=== PATIENT | female | born 1965 | race Two or more races ===

== ENCOUNTER 2017-11-06 10:29 | Inpatient (IN) | payer OTHER ==
[2017-11-06] VITALS (41 sets, daily range): BP systolic 80–132; BP diastolic 49–80
[~2017-11-06] VITALS: Ht 152.4 cm; Wt 46.7 kg
--- NOTE | 2017-11-06 10:29 | NUR ---
[place] FROM 4 SEASONS C/O SOB, SPO2=74% ON RA, CAME IN ON NR WITH SPO2=90%. NAD NOTED. MD AT BEDSIDE FOR EVAL. PT CURRENTLY NONVERBAL. RT AT BEDSIDE. PT PLACED IN GOWN AND MONITOR.
[2017-11-06 10:53] LABS: ABG BASE EXCESS -1.2 mmol/L; ABG PCO2 42.1 mmHg (35.0-45.0); ABG PH 7.375 (7.350-7.450); ABG PO2 56.1 mmHg (75.0-100.0); AaDO2 614.8 mmHg; SITE, ABG Right Radial; VENT MODE, BG NRB MASK
[2017-11-06 10:56] LABS: BASOPHILS # (AUTO) 0.2 /CMM (0.0-0.2); BASOPHILS % (AUTO) 0.9 % (0.0-2.0); EOSINOPHILS % (AUTO) 0.2 % (0.0-6.0); HEMATOCRIT 33 % (33-45); LYMPHOCYTES # (AUTO) 1.3 /CMM (0.8-4.8); LYMPHOCYTES % (AUTO) 6.7 % (20.0-44.0); MEAN CORPUSCULAR HEMOGLOBIN 32 PG (26.0-33.0); MEAN CORPUSCULAR HGB CONC 34 g/dl (31.0-36.0); MEAN CORPUSCULAR VOLUME 94 fL (82-100); MONOCYTES % (AUTO) 0.1 % (2.0-12.0); NEUTROPHILS # (AUTO) 17.5 /CMM (1.8-8.9); NEUTROPHILS % (AUTO) 92.1 % (43.0-81.0); RDW COEFFICIENT OF VARIATION 20.7 (11.5-15.0); RED BLOOD CELL COUNT(AUTO) 3.49 MIL/uL (4.0-5.2)
[2017-11-06] MEDS ORDERED: IV NS 0.9% 500 ML BAG IV ONE ×2 (11:00→14:00)
[2017-11-06] MEDS ORDERED: SUCR1TAB PO (11:16)
[2017-11-06] MEDS ORDERED: OXYC15TA2 PO (11:16)
[2017-11-06] MEDS ORDERED: LEVO50TA8 PO (11:16)
[2017-11-06] MEDS ORDERED: INSU100I14 SQ (11:16)
[2017-11-06] MEDS ORDERED: ERGO500040 PO (11:16)
[2017-11-06] MEDS ORDERED: BISA10SU8 RC (11:16)
[2017-11-06] MEDS ORDERED: ONDA4TAB5 PO (11:16)
[2017-11-06] MEDS ORDERED: IPRA3AMP IH (11:16)
[2017-11-06] MEDS ORDERED: MULT-213 PO (11:16)
[2017-11-06] MEDS ORDERED: FERR325T23 PO (11:16)
[2017-11-06] MEDS ORDERED: AMLO10TA2 PO (11:16)
[2017-11-06] MEDS ORDERED: MAGN400T6 PO (11:16)
[2017-11-06] MEDS ORDERED: ASCO500T9 PO (11:16)
[2017-11-06] MEDS ORDERED: NA P133E RC (11:16)
[2017-11-06] MEDS ORDERED: SIMV10TA6 PO (11:16)
[2017-11-06] MEDS ORDERED: MIRT15TA7 PO (11:16)
[2017-11-06] MEDS ORDERED: FLUO20CA36 PO (11:16)
[2017-11-06] MEDS ORDERED: ACET-868 PO (11:16)
[2017-11-06] MEDS ORDERED: EPOE1VIA7 SQ (11:16)
[2017-11-06] MEDS ORDERED: MAGN400O6 PO (11:16)
--- NOTE | 2017-11-06 11:36 | NUR ---
PICC LINE NURSE CALLED
--- NOTE | 2017-11-06 11:38 | NUR ---
URINE OBTAINED CALLED LAB FOR PICKUP
[2017-11-06 11:53] LABS: APPEARANCE,URINE Cloudy (CLEAR); BILIRUBIN,URINE Negative (NEGATIVE); BLOOD, URINE Large Ery/uL (NEGATIVE); COLOR,URINE Brown (YELLOW); KETONES,URINE Negative (NEGATIVE); LEUKOCYTE ESTERASE ,URINE Large (NEGATIVE); NITRITE, URINE Negative (NEGATIVE); PH,URINE 6.5 (5.0-8.0); PROTEIN,URINE >=300 mg/dl (NEGATIVE); UGLUCOSE Negative (NEGATIVE); UROBILINOGEN,URINE 0.2 EU/dL (0.2)
[2017-11-06 11:59] LABS: BACTERIA,URINE Many /HPF (None Seen); SQUAMOUS EPITHELIAL CELL,UR Few /HPF (None Seen); WBC,URINE 81-100 /HPF (0-3)
--- NOTE | 2017-11-06 12:05 | NUR ---
HYDRO-THERMAL HEATING BLANKET IS SET UP AND APPLIED ON PATIENT. PICC LINE NURSE BEDSIDE.
[2017-11-06] MEDS ORDERED: PIPERACILLIN /TAZOBACTAM 3.375 G in IV D5W 50 ML IV ONE (12:30)
[2017-11-06] MEDS ORDERED: LEVOFLOXACIN 750 MG /D5W 150ML 150 ML IV ONE (12:30)
--- NOTE | 2017-11-06 13:01 | NUR ---
JO PICCLINE INSERTED BY JUAN CARLOS LEVY
[2017-11-06 13:22] LABS: INR 1.88 (0.87-1.13)
[2017-11-06 13:30] LABS: BILIRUBIN,DIRECT 0.9 mg/dL (0.0-0.2); BILIRUBIN,TOTAL 1.4 mg/dL (0.2-1.0); CALCIUM, SERUM 7.3 mg/dL (8.5-10.1); CREATININE 1.5 mg/dL (0.6-1.3); POTASSIUM 3.6 mmol/L (3.5-5.1); TOTAL PROTEIN, SERUM 4.7 g/dL (6.4-8.2)
[2017-11-06 13:32] LABS: ALBUMIN 1.2 g/dL (3.4-5.0)
[2017-11-06] MEDS ORDERED: DEXTROSE 50%-WATER 50 ML DISP.SYRIN ONE (13:32)
--- NOTE | 2017-11-06 13:35 | NUR ---
[id number] GIVEN PER MD ORDER
--- NOTE | 2017-11-06 13:45 | NUR ---
BLOOD SUGAR RECHECK, 160, MD AWARE
--- NOTE | 2017-11-06 13:46 | NUR ---
GROUP CALLED, BACK SEWER, PAGED TO CALL BACK
[2017-11-06 13:55] LABS: PLATELET COUNT (AUTO) 8 /CMM (150-450)
[2017-11-06 13:59] LABS: BAND % (MANUAL) 8 % (0.0-5.0); LYMPHOCYTES % (MANUAL) 2 % (16-48); MONOCYTES % (MANUAL) 7 % (0-11.0); MYELOCYTES % 1 % (0-0); NEUTROPHILS % (MANUAL) 82 (42-76)
--- NOTE | 2017-11-06 14:02 | NUR ---
PT TO CT
--- NOTE | 2017-11-06 14:25 | NUR ---
PT BACK FROM CT
--- NOTE | 2017-11-06 14:44 | NUR ---
, RT, AND RN AT BEDSIDE FOR INTUBATION. PT WAS SUCCESSFULY INTUBATED AT 1441 BY . MD GAVE VERBAL ORDER FOR 80MG OF SUCCINYLCHOLINE AND 20MG OF ETOMIDATE WAS GIVEN PRIOR TO INTUBATION. ET TUBE SIZE 7 WAS USED AND AT 22 AT THE LIPS. PRE PROCEDURE VITALS WERE BP 68/42, HR 75, SPO2 90% ROOM AIR, RESPIRATIONS 20. POST PROCEDURE VITALS WERE BP 64/46, HR75, SPO2 100% ON VENT WITH FIO2 OF 100, VOLUME 500ML, PEEP 0, AND RATE OF 14.
--- NOTE | 2017-11-06 14:45 | NUR ---
SUCCESSFUL RSI DONE BY DR. COYLE. MEDS GIVEN PER PROTOCOL. RTS PRESENT AT BS.
--- NOTE | 2017-11-06 14:45 | NUR ---
PT INTUBATED BY ER W. 7.0 ETT SECURED W/ ANCHOFAST @ 21CM LIPLINE, BREATH SOUNDS EQUAL, POSITIVE COLOR CHANGE ON CO2 DETECTOR NOTED. PT SX'ED AND LAVAGED PRN TO LARGE AMOUNTS OF THIN FROTHY BLOOD TINGED SECRETIONS, ETT ASPIRATE SAMPLE SENT TO LAB. PT PLACED ON SETTINGS PER MD Gomez AC14 500 100% PEEP 0. PT MOVED TO ICU W/ RN.
--- NOTE | 2017-11-06 14:57 | NUR ---
AT BEDSIDE. SUCCESSFUL INTUBATION WAS PERFORMED
[2017-11-06] MEDS: NOREPINEPHRINE 8 MG in IV D5W 500 ML IV PRN (15:00)
[2017-11-06] MEDS ORDERED: VANCOMYCIN 1 GM in IV D5W 250 ML IV ONE ×2 (15:00→16:00)
[2017-11-06] MEDS ORDERED: NOREPINEPHRINE 8 MG in IV D5W 500 ML IV ONE (15:00)
[2017-11-06] MEDS ORDERED: FEE PK DOSING 1 MIN EA MC ONE (15:02)
--- NOTE | 2017-11-06 15:11 | NUR ---
NON ADMIN DUPLICATE ORDER OF LEVOPHED
--- NOTE | 2017-11-06 16:00 | NUR ---
FUR BLOWER OPERATOR NOTE RECEIVED PATINT FROM ICU OBTUNDED ,ON TELE MONITOR SR , WITH LEVOPHED DRIP ORDERED PER DR WILKERSON WILL START PROPOFOL ORDERED ON SOFT RESTRAIN ORDERED, BED IN LOWEST AND LOCKED POSITION WITH ETT TO VENT SETTING ORDERED, LT UPPER ARM PICC LINE ,
[2017-11-06] MEDS: PROPOFOL 10MG/ML 50ML 50 ML IV PRN ×2 (16:16→21:55)
[2017-11-06 16:27] LABS: ABG BASE EXCESS -1.7 mmol/L; ABG OXYGEN SATURATION 88.5 % (92.0-98.5); ABG PO2 56.7 mmHg (75.0-100.0); AaDO2 625.3 mmHg; COHb 0.6 % (0.5-1.5); MetHb 0.8 % (0.0-1.5); O2Hb 87.3 % (94.0-97.0); PEEP,BG 0 cm H2O; SITE, ABG Right Radial; VENT MODE, BG AC 14 500 100% +0; VT, ABG 500 mL
[2017-11-06] MEDS ORDERED: IPRATROPIUM NEB FS 0.5 MG/2.5 ML AMPUL.NEB NEB PRN (17:00)
[2017-11-06] MEDS ORDERED: ALBUTEROL FS 2.5 MG/3 ML VIAL.NEB NEB PRN (17:00)
[2017-11-06] MEDS ORDERED: ONDANSETRON HCL/PF 4 MG/2 ML VIAL IVP PRN (17:00)
[2017-11-06] MEDS ORDERED: IV D5/0.45 NACL 1,000 ML IV PRN (17:00)
--- NOTE | 2017-11-06 17:00 | NUR ---
ICU RNNNOTE CALLED TO DR WILKERSON NOTIFIED THT LACTIC ACID 4.8 WITH ORDER GIVE BOLUS NS 500
[2017-11-06] MEDS: MEROPENEM 500 MG in IV NS 0.9% 50 ML IV SCH (17:04)
[2017-11-06] MEDS ORDERED: IV NS 0.9% 500 ML IV ONE (17:30)
--- NOTE | 2017-11-06 17:32 | NUR ---
WEBFOCUS DEVELOPER NOTE NOTIFIED THAT BLOOD SUGAR 62 STATED ACCU CHECK Q4 HOUR AND GIVE 1 AMP D50% , ORDER CARRIED OUT Addendum: 11/06/17 at 1821 by EDDIE PASCUAL RN D50 % ADMINISTERED ORDERED BY DR Gerry COBB
[2017-11-06] MEDS ORDERED: DEXTROSE 50%-WATER 50 ML DISP.SYRIN IVP ONE (18:00)
[2017-11-06] MEDS ORDERED: ETOMIDATE 2 MG/ML VIAL IV ONE (18:25)
[2017-11-06] MEDS ORDERED: SUCCINYLCHOLINE CHLORIDE 20 MG/ML VIAL IV ONE (18:25)
--- NOTE | 2017-11-06 18:41 | NUR ---
MERCHANDISE SUPPORT ASSOCIATE NOTE CALLED BLOOD BANK PLATELETS NOT READY YET, WILL F\U
--- NOTE | 2017-11-06 19:30 | NUR ---
KNOCKDOWN WORKER RCD PT SEDATED ON DIPRIVAN AT 20 MCG/KG/MIN; INTUBATED 7.0 @ 21 W/VENT SETTINGS AC 14 500 100% +5; JO PICC LINE W/LEVOPHED AT 4 MCG/MIN; D51/2 NS@ 50 ML/HR; PER REPORT 3 UNITS OF PLATELETS TO BE GIVEN. CALL PLACED TO DR WILKERSON TO RECEIVE ORDER TO CONTINUE LEVOPHED. PENDING CALL BACK. MULTIPLE SKIN ISSUES APPLIED MEPILEX; WOUND CARE CONSULT PENDING.
--- NOTE | 2017-11-06 20:19 | NUR ---
DIRECTOR PRODUCT DEVELOPMENT FIRST UNIT PLATELET TRANSFUSION STARTED.
--- NOTE | 2017-11-06 20:24 | NUR ---
PT RECEIVED INTUBATED WITH 7.0 ETT SECURED AT 21CM AT THE LIP. TOLERATING VENT SETTINGS. SX'D FRO MOD AMT OF THICK BISHOP SECRETIONS. VENT ALARMS SET AND AUDIBLE. AMBU BAG AT BEDSIDE. VENT PLUGGED INTO RED OUTLET. WILL CONTINUE TO MONITOR. Addendum: 11/06/17 at 2024 by NOEMY HOUSTON RT Amended: Links added.
[2017-11-06] MEDS ORDERED: BLOOD SUGAR DIAGNOSTIC 1 EACH STRIP IN SCH (21:00)
[2017-11-06] MEDS ORDERED: PHYTONADIONE INJ 10 MG/1 ML AMPUL SQ SCH (21:00)
--- NOTE | 2017-11-06 21:00 | NUR ---
SANDBLASTER PAINT SPRAYER ABD US AT BEDSIDE.
[2017-11-06] MEDS ORDERED: PHYTONADIONE INJ 10 MG/1 ML AMPUL ONE (21:43)
[2017-11-06] MEDS: BLOOD SUGAR DIAGNOSTIC 1 EACH STRIP IN SCH (21:55)
--- NOTE | 2017-11-06 21:58 | NUR ---
ROUNDING MACHINE OPERATOR BLOOD SUGAR 102; NO COVERAGE NEEDED. CONTINUE TO MONITOR.
[2017-11-07] VITALS (76 sets, daily range): BP systolic 55–168; BP diastolic 44–89
--- NOTE | 2017-11-07 01:19 | NUR ---
DIRECTOR OF FOOD AND NUTRITION BLOOD SUGAR 69; NO COVERAGE NEEDED. CONTINUE TO MONITOR.
[2017-11-07] MEDS: BLOOD SUGAR DIAGNOSTIC 1 EACH STRIP IN SCH ×6 (01:22→21:11)
[2017-11-07] MEDS: PROPOFOL 10MG/ML 50ML 50 ML IV PRN ×5 (04:00→22:41)
[2017-11-07] MEDS: MEROPENEM 500 MG in IV NS 0.9% 50 ML IV SCH ×2 (04:00→16:37)
[2017-11-07 04:54] LABS: EOSINOPHILS % (AUTO) 0.1 % (0.0-6.0); LYMPHOCYTES # (AUTO) 0.4 /CMM (0.8-4.8); LYMPHOCYTES % (AUTO) 2.4 % (20.0-44.0); MEAN CORPUSCULAR HEMOGLOBIN 32 PG (26.0-33.0); MEAN CORPUSCULAR HGB CONC 34 g/dl (31.0-36.0); MEAN CORPUSCULAR VOLUME 95 fL (82-100); MONOCYTES # (AUTO) 0.1 /CMM (0.1-1.30); MONOCYTES % (AUTO) 0.3 % (2.0-12.0); NEUTROPHILS # (AUTO) 18.2 /CMM (1.8-8.9); NEUTROPHILS % (AUTO) 97.2 % (43.0-81.0); PLATELET COUNT (AUTO) 56 /CMM (150-450); RDW COEFFICIENT OF VARIATION 22.5 (11.5-15.0); WHITE BLOOD COUNT (AUTO) 18.7 K/uL (4.3-11.0)
[2017-11-07 05:17] LABS: CALCIUM, SERUM 6.9 mg/dL (8.5-10.1); CREATININE 1.6 mg/dL (0.6-1.3); MAGNESIUM 1.7 mg/dL (1.8-2.4); PHOSPHORUS 2.1 mg/dL (2.5-4.9); POTASSIUM 3.4 mmol/L (3.5-5.1)
[2017-11-07 05:26] LABS: HEMATOCRIT 19 % (33-45); HEMOGLOBIN 6.3 g/dL (11.5-14.8); RED BLOOD CELL COUNT(AUTO) 1.99 MIL/uL (4.0-5.2); THYROID STIMULATING HORMONE 1.474 uIU/mL (0.358-3.74)
--- NOTE | 2017-11-07 05:27 | NUR ---
FLIGHT TECHNICIAN BLOOD SUGAR 60; NO COVERAGE NEEDED. CONTINUE TO MONITOR.
--- NOTE | 2017-11-07 05:30 | NUR ---
SHADOWGRAPH SCALE OPERATOR PT SEDATED ON DIPRIVAN AT 20 MCG/KG/MIN; PT NOTED MOVING HANDS REACHING FOR LINES AND ET TUBES; PT DOES NOT FOLLOW COMMANDS. DIPRIVAN INCREASED TO 25 MCG/KG/MIN. CONTINUE TO MONITOR.
[2017-11-07 05:47] LABS: BAND % (MANUAL) 19 % (0.0-5.0); NEUTROPHILS % (MANUAL) 74 (42-76)
[2017-11-07 05:48] LABS: LYMPHOCYTES % (MANUAL) 3 % (16-48); METAMYELOCYTES % 3 % (0-0); MONOCYTES % (MANUAL) 1 % (0-11.0)
--- NOTE | 2017-11-07 06:00 | NUR ---
PROFESSOR OF EDUCATION PROFESSOR OF EDUCATION PT SEDATED ON DIPRIVAN AT 25 MCG/KG/MIN; PT NOTED MOVING HANDS REACHING FOR LINES AND ET TUBES; PT DOES NOT FOLLOW COMMANDS. DIPRIVAN INCREASED TO 30 MCG/KG/MIN. CONTINUE TO MONITOR.
--- NOTE | 2017-11-07 06:37 | NUR ---
CABLE TELEVISION PROGRAM DIRECTOR 6.01/07; NO ACTIVE BLEED NOTED; STAT REDRAW FROM LAB REQUESTED.
[2017-11-07 06:49] LABS: LYMPHOCYTES # (AUTO) 0.6 /CMM (0.8-4.8); LYMPHOCYTES % (AUTO) 3.2 % (20.0-44.0); MEAN CORPUSCULAR HEMOGLOBIN 31 PG (26.0-33.0); MEAN CORPUSCULAR HGB CONC 33 g/dl (31.0-36.0); MEAN CORPUSCULAR VOLUME 96 fL (82-100); MONOCYTES % (AUTO) 0.2 % (2.0-12.0); NEUTROPHILS # (AUTO) 19.3 /CMM (1.8-8.9); NEUTROPHILS % (AUTO) 96.6 % (43.0-81.0); RDW COEFFICIENT OF VARIATION 22.4 (11.5-15.0); RED BLOOD CELL COUNT(AUTO) 2.03 MIL/uL (4.0-5.2); WHITE BLOOD COUNT (AUTO) 19.9 K/uL (4.3-11.0)
[2017-11-07 07:09] LABS: HEMATOCRIT 20 % (33-45); HEMOGLOBIN 6.4 g/dL (11.5-14.8); PLATELET COUNT (AUTO) 38 /CMM (150-450)
--- NOTE | 2017-11-07 07:20 | NUR ---
RN INITIAL NOTE PATIENT RECEIVED IN BED. SEDATED. WAS INTUBATED. TOLERATING VENT SETTINGS WELL. NO S/S OF RESPIRATORY DISTRESS OR SOB. NO S/S OF PAIN OR DISCOMFORT. SINUS RHYTHM ON TELE MONITOR. PATIENT IS NPO. SKIN IS WARM AND DRY TO TOUCH. SCHEDULED FOR HD TODAY. SKIN IS WARM AND DRY TO TOUCH. IV SITE FLUSHED, PATENT. SAFETY PRECAUTIONS IN PLACE: BED IN LOCKED, LOW POSITION WITH TWO SIDE RAILS UP. CALL LIGHT AND BELONGINGS WITHIN EASY REACH. WILL CONTINUE TO MONITOR.
--- NOTE | 2017-11-07 07:22 | NUR ---
Female intubated pt received on mechanical vent. 7.0 ETT is secured at 21cm@ the lip. Vent is plugged into a red outlet, alarms are set and audible, and BVM is at bedside. Addendum: 11/07/17 at 0723 by PETRA RIZO RT Amended: Links added.
--- NOTE | 2017-11-07 08:09 | NUR ---
WOUND CARE CONSULT: PT PRESENTS WITH STAGE 3 SACRAL ULCER AND OPEN AREAS TO LEFT LOWER LEG WITH WEEPING EDEMA TO ARMS AND LEGS (3+ PITTING EDEMA), PRESENT ON ADMISSION. RECOMMENDATIONS MADE FOR WOUND CARE AND SKIN PROTECTION. DISCUSSED WITH NURSING STAFF. RECOMMEND SURGICAL CONSULT. FIRST STEP MATTRESS ORDERED. ALL SKIN PROTECTION MEASURES IN PLACE. WILL SEE PRN. CURRENT MAGALIE SCORE IS 12. MD IN AGREEMENT WITH PLAN OF CARE. Addendum: 11/07/17 at 0811 by EVA DE LA O Amended: Links added. Addendum: 11/07/17 at 0820 by EVA DE LA O PT IS EXTREMELY THIN AND BONY.
[2017-11-07 08:18] LABS: ABG BASE EXCESS -0.7 mmol/L; ABG OXYGEN SATURATION 92.6 % (92.0-98.5); ABG PCO2 46.2 mmHg (35.0-45.0); ABG PH 7.351 (7.350-7.450); ABG PO2 67.8 mmHg (75.0-100.0); COHb 0.3 % (0.5-1.5); MetHb 0.9 % (0.0-1.5); O2Hb 91.5 % (94.0-97.0); PEEP,BG 5 cm H2O; SITE, ABG Right Radial; VENT MODE, BG AC 14 500 100% +5; VT, ABG 500 mL
[2017-11-07] MEDS ORDERED: NS 0.9% IV ONE ×2 (08:30→09:00)
[2017-11-07] MEDS ORDERED: HYDROGEL DRESSING 90 GM TUBE TP PRN (08:30)
[2017-11-07] MEDS ORDERED: DESMOPRESSIN IV ONE ×2 (08:30→09:00)
[2017-11-07] MEDS ORDERED: DEXTROSE 10% IN WATER 250 ML BAG IV PRN (09:00)
[2017-11-07] MEDS ORDERED: Sodium Phosphate 15 MMOL in IV D5W 250 ML IV ONE (09:00)
[2017-11-07] MEDS: PANTOPRAZOLE 40 MG VIAL IV SCH (09:14)
[2017-11-07] MEDS: Z GUARD REMEDY 2 OZ OINT TP SCH (09:14)
[2017-11-07] MEDS: HYDROGEL DRESSING 90 GM TUBE TP SCH (09:14)
[2017-11-07] MEDS: Magnesium 1GM/D5W 100ML PREMIX 100 ML IV SCH ×4 (09:14→19:59)
[2017-11-07 09:26] LABS: INR 1.66 (0.87-1.13)
[2017-11-07] MEDS ORDERED: IV D5W 1,000 ML IV PRN (09:30)
[2017-11-07] MEDS: IV D5/ 0.9% NACL 1,000 ML IV PRN ×2 (09:35→21:11)
--- NOTE | 2017-11-07 10:15 | NUR ---
RN NOTE IN THE PROCESS OF CHANGING IV TUBING ON DIPROVAN PATIENT'S HANDS BEGAN TO MOVE TOWARDS HER FACE AND BECAME TACHYCARDIC.
--- NOTE | 2017-11-07 11:20 | NUR ---
PEEP increased to 10 per MD order. Addendum: 11/07/17 at 1330 by PETRA RIZO RT Amended: Links added.
[2017-11-07] MEDS ORDERED: EPOETIN ALFA (10,000 UNIT) 10,000 UNIT/ML VIAL SQ ONE (15:00)
[2017-11-07 16:36] LABS: HEMOGLOBIN 12.2 g/dL (11.5-14.8)
[2017-11-07 17:03] LABS: IRON, SERUM 24 ug/dl (50-175); TOTAL IRON BINDING CAPACITY 75 ug/dl (250-450)
[2017-11-07] MEDS: VANCOMYCIN 500 MG in IV D5W 100 ML IV PRN (17:09)
[2017-11-07 17:29] LABS: FERRITIN 4591 ng/mL (8-388)
--- NOTE | 2017-11-07 17:30 | NUR ---
RN NOTE DURING DIALYSIS PATIENTS B/P DROPPED LEVOPHED INCREASED TO 30 MCG/KG
[2017-11-07 18:02] LABS: D-DIMER 2.26 mg/L(FEU (0.17-0.50); INR 1.6 (0.87-1.13)
--- NOTE | 2017-11-07 18:15 | NUR ---
RN NOTE PATIENTS SYSTOLIC BLOOD PRESSURE MAINTAINED ABOVE 90 LEVOPHED STOPPED.
--- NOTE | 2017-11-07 19:25 | NUR ---
HAM SAWYER RCD PT SEDATED ON DIPRIVAN AT 30 MCG/KG/MIN; INTUBATED 7.0 @ 21 W/VENT SETTINGS AC 14 500 90% +10; JO PICC LINE D5NS@ 75 ML/HR; PER REPORT 2 UNITS OF PLATELETS TO BE GIVEN. OG TUBE CLAMPED.
--- NOTE | 2017-11-07 19:43 | NUR ---
Received pt on vent support on current vent settings,pt stable no respiratory distress noted, no sob noted, alarms are on and audible, ventilator is plugged into red outlet, ambu bag at bedside, will continue monitoring per MDS orders. Addendum: 11/07/17 at 1945 by MOLLY GRAHAM RT Amended: Links added.
--- NOTE | 2017-11-07 20:00 | NUR ---
MAGNETIC LOCATER CALLED BLOOD BANK; PLATELETS PENDING DELIVERY FROM [facility].
--- NOTE | 2017-11-07 20:30 | NUR ---
AXMINSTER RUG SETTER RCD CALL FROM RUBY VILLEGAS; PT SON; UPDATED ON PLAN OF CARE.
[2017-11-07] MEDS: SIMVASTATIN 10 MG TABLET NG SCH (21:12)
[2017-11-08] VITALS (40 sets, daily range): BP systolic 84–136; BP diastolic 57–81
[2017-11-08] MEDS: BLOOD SUGAR DIAGNOSTIC 1 EACH STRIP IN SCH ×6 (01:45→22:03)
[2017-11-08] MEDS: PROPOFOL 10MG/ML 50ML 50 ML IV PRN ×3 (04:10→17:56)
[2017-11-08] MEDS: MEROPENEM 500 MG in IV NS 0.9% 50 ML IV SCH ×2 (05:00→15:52)
[2017-11-08 05:44] LABS: EOSINOPHILS % (AUTO) 0.4 % (0.0-6.0); HEMATOCRIT 28 % (33-45); HEMOGLOBIN 9.7 g/dL (11.5-14.8); LYMPHOCYTES # (AUTO) 0.5 /CMM (0.8-4.8); LYMPHOCYTES % (AUTO) 4.2 % (20.0-44.0); MEAN CORPUSCULAR HEMOGLOBIN 32 PG (26.0-33.0); MEAN CORPUSCULAR HGB CONC 35 g/dl (31.0-36.0); MEAN CORPUSCULAR VOLUME 92 fL (82-100); MONOCYTES % (AUTO) 0.4 % (2.0-12.0); NEUTROPHILS # (AUTO) 11.2 /CMM (1.8-8.9); RED BLOOD CELL COUNT(AUTO) 3.07 MIL/uL (4.0-5.2); WHITE BLOOD COUNT (AUTO) 11.8 K/uL (4.3-11.0)
[2017-11-08 06:09] LABS: CREATININE 1.5 mg/dL (0.6-1.3); MAGNESIUM 2.6 mg/dL (1.8-2.4); PHOSPHORUS 2.5 mg/dL (2.5-4.9)
[2017-11-08 06:14] LABS: PLATELET COUNT (AUTO) 29 /CMM (150-450)
[2017-11-08 06:48] LABS: BAND % (MANUAL) 11 % (0.0-5.0); LYMPHOCYTES % (MANUAL) 6 % (16-48); METAMYELOCYTES % 2 % (0-0); MONOCYTES % (MANUAL) 2 % (0-11.0); NEUTROPHILS % (MANUAL) 79 (42-76)
--- NOTE | 2017-11-08 07:16 | NUR ---
PT. RECEIVED ON [facility] VENT VIA ET TUBE WITH PARAMETERS BELLOW ORDER: AC 14 VT 500 FIO2 70% PEEP +10 B/S CLEAR BILATERAL. VENT IS PLUGGED INTO RED OUTLET WITH ALARMS ON AND AUDIBLE. QUINTIN @ HOB. Addendum: 11/08/17 at 1412 by MONTSE SÁNCHEZ RT Amended: Links added.
--- NOTE | 2017-11-08 07:30 | NUR ---
RN NOTE: PT RECEIVED SEDATED, ON VENT, ET INTACT, SETTINGS TOLERATED WELL. ON SEDATION ORDERED. ORAL TUBE CLAMPED. SAFETY MEASURES OBSERVED. WILL CONTINUE TO MONITOR.
[2017-11-08 08:54] LABS: ABG BASE EXCESS -2.2 mmol/L; ABG OXYGEN SATURATION 93.4 % (92.0-98.5); ABG PCO2 43.2 mmHg (35.0-45.0); ABG PH 7.351 (7.350-7.450); ABG PO2 75.5 mmHg (75.0-100.0); AaDO2 377.2 mmHg; COHb 0.3 % (0.5-1.5); MetHb 1.3 % (0.0-1.5); O2Hb 91.9 % (94.0-97.0); PEEP,BG 10 cm H2O; SITE, ABG Left Radial; VENT MODE, BG AC 70%; VT, ABG 500 mL
[2017-11-08] MEDS: LEVOTHYROXINE SODIUM 50 MCG TABLET NG SCH (09:04)
[2017-11-08] MEDS: IV D5/ 0.9% NACL 1,000 ML IV PRN (09:07)
[2017-11-08] MEDS: PANTOPRAZOLE 40 MG VIAL IV SCH (09:07)
[2017-11-08] MEDS: Z GUARD REMEDY 2 OZ OINT TP SCH (10:30)
[2017-11-08] MEDS: HYDROGEL DRESSING 90 GM TUBE TP SCH (10:30)
[2017-11-08] MEDS ORDERED: DEXTROSE 50%-WATER 50 ML DISP.SYRIN IVP ONE (13:30)
[2017-11-08] MEDS ORDERED: IV D5/0.45 NACL 1,000 ML IV PRN (13:30)
--- NOTE | 2017-11-08 15:14 | NUR ---
RN NOTE: (CRITICAL LOW BLOOD SUGAR) 1252: BLOOD SUGAR 40. NOTED NO DEXTROSE/PROTOCOL ORDERED TO TREAT. 1256: PAGED PRIMARY MD. 1305: CHARGE NURSE MADE AWARE. CHARGE NURSE LEFT MESSAGE FOR MD. WAITING FOR RESPONSE. 1308: OVERHEAD PAGED FOR DR. CHAMPION WELL. 1316: DR. WILKERSON CAME TO FLOOR, RECEIVED ORDERS AT BEDSIDE. 1321: ADMINISTER DEXTROSE ORDERED IV. WILL START IV FLUIDS ORDERED. 1335: RECHECKED BLOOD SUGAR 198. RUNNING IV FLUIDS ORDERED. WILL CONTINUE TO MONITOR.
[2017-11-08 18:36] LABS: EOSINOPHILS % (AUTO) 0.3 % (0.0-6.0); HEMATOCRIT 31 % (33-45); HEMOGLOBIN 10.5 g/dL (11.5-14.8); LYMPHOCYTES # (AUTO) 0.5 /CMM (0.8-4.8); LYMPHOCYTES % (AUTO) 3.9 % (20.0-44.0); MEAN CORPUSCULAR HEMOGLOBIN 32 PG (26.0-33.0); MEAN CORPUSCULAR HGB CONC 34 g/dl (31.0-36.0); MEAN CORPUSCULAR VOLUME 92 fL (82-100); MONOCYTES # (AUTO) 0.2 /CMM (0.1-1.30); MONOCYTES % (AUTO) 1.2 % (2.0-12.0); NEUTROPHILS # (AUTO) 13.1 /CMM (1.8-8.9); NEUTROPHILS % (AUTO) 94.6 % (43.0-81.0); RDW COEFFICIENT OF VARIATION 19.1 (11.5-15.0); RED BLOOD CELL COUNT(AUTO) 3.32 MIL/uL (4.0-5.2); WHITE BLOOD COUNT (AUTO) 13.9 K/uL (4.3-11.0)
[2017-11-08 18:38] LABS: PLATELET COUNT (AUTO) 10 /CMM (150-450)
[2017-11-08 18:39] LABS: BAND % (MANUAL) 16 % (0.0-5.0); LYMPHOCYTES % (MANUAL) 7 % (16-48); MONOCYTES % (MANUAL) 2 % (0-11.0); NEUTROPHILS % (MANUAL) 75 (42-76)
--- NOTE | 2017-11-08 18:47 | NUR ---
RN NOTES:(CRITICAL LOW PLATELET) RECEIVED RESULTS FOR LOW PLATELETS 10,000. PROTOCOL INITIATED, WILL FOLLOW MISCELLANEOUS ORDERS BY DR. SERVIN TRANSFUSE 2 UNITS IF BELOW 20,000. ORDERED WILL ENDORSE TO PM SHIFT FOR CONTINUITY OF CARE.
--- NOTE | 2017-11-08 19:00 | NUR ---
CLINICAL NURSING PROFESSOR NOTES Received patient orally intubated on eventilator on AC mode,sedated on Diprivan drip(titrate as needed).patient very sedated,,not moving extremities,with very minimal gag and cough reflex when suctioned.(will slowly wean down Propofol).PICC line via JO.Comfort care done,needs attended.Will transfuse 2 units platelet when available. 2020 Called blood bank to follow up on Platelet,not yet available.
--- NOTE | 2017-11-08 19:40 | NUR ---
Received pt on vent support on current vent settings,pt stable no respiratory distress noted, no sob noted, alarms are on and audible, ventilator is plugged into red outlet, ambu bag at bedside, will continue monitoring per MDS orders. Addendum: 11/08/17 at 1940 by MOLLY GRAHAM RT Amended: Links added.
[2017-11-08] MEDS: SIMVASTATIN 10 MG TABLET NG SCH (22:03)
--- NOTE | 2017-11-08 22:30 | NUR ---
STEAM FITTER HELPER NOTE TRANSFER OF CARE FROM ISAIAS LEVY. PT CURRENTLY INTUBATED. ETT 7.0 AND 21CM AT THE LIP. HOB ELEVATED. ORAL TUBE IN PLACE. VENT SETTINGS WELL TOLERATED. SEDATED AT THIS TIME. IV JO PICC CLEAN, PATENT WITH FLUIDS INFUSING AT THIS TIME. AFEBRILE. WITH ORDERS TO INFUSE 2 UNITS OF PLATELETS. WILL CONTINUE TO MONITOR.
[2017-11-08] MEDS ORDERED: DEXTROSE 50%-WATER 50 ML DISP.SYRIN ONE (23:55)
[2017-11-09] VITALS (45 sets, daily range): BP systolic 89–138; BP diastolic 46–98
[2017-11-09] MEDS: PROPOFOL 10MG/ML 50ML 50 ML IV PRN ×3 (00:14→15:59)
--- NOTE | 2017-11-09 00:22 | NUR ---
APPLICATION INTEGRATION ENGINEER NOTE 1 OF 2 UNITS OF PLATELETS CURRENTLY INFUSING. BLOOD SUGAR 56. SPOKE WITH FLY FINISHER DR. WILKERSON WITH NEW ORDER FOR D50 IVP PRN FOR BLOOD SUGAR BELOW 70 AND TO INCREASE IVF D5 1/2NS FROM 50 TO 75 MLS/HR. ORDERS NOTED AND CARRIED. WILL FOLLOW UP.
[2017-11-09] MEDS ORDERED: DEXTROSE 50%-WATER 50 ML DISP.SYRIN IVP PRN (00:30)
[2017-11-09] MEDS ORDERED: IV D5/0.45 NACL 1,000 ML IV PRN (00:30)
[2017-11-09] MEDS: BLOOD SUGAR DIAGNOSTIC 1 EACH STRIP IN SCH ×6 (00:42→21:53)
[2017-11-09] MEDS ORDERED: BLOOD SUGAR DIAGNOSTIC 1 EACH STRIP IN SCH (01:00)
[2017-11-09 03:29] LABS: EOSINOPHILS % (AUTO) 0.5 % (0.0-6.0); HEMATOCRIT 26 % (33-45); HEMOGLOBIN 9.1 g/dL (11.5-14.8); LYMPHOCYTES # (AUTO) 2.3 /CMM (0.8-4.8); LYMPHOCYTES % (AUTO) 24.5 % (20.0-44.0); MEAN CORPUSCULAR HEMOGLOBIN 32 PG (26.0-33.0); MEAN CORPUSCULAR HGB CONC 35 g/dl (31.0-36.0); MEAN CORPUSCULAR VOLUME 91 fL (82-100); MONOCYTES % (AUTO) 0.5 % (2.0-12.0); NEUTROPHILS # (AUTO) 6.8 /CMM (1.8-8.9); NEUTROPHILS % (AUTO) 74.5 % (43.0-81.0); RDW COEFFICIENT OF VARIATION 19.9 (11.5-15.0); RED BLOOD CELL COUNT(AUTO) 2.88 MIL/uL (4.0-5.2); WHITE BLOOD COUNT (AUTO) 9.2 K/uL (4.3-11.0)
[2017-11-09 03:36] LABS: CALCIUM, SERUM 7.2 mg/dL (8.5-10.1); CREATININE 1.8 mg/dL (0.6-1.3)
[2017-11-09 03:42] LABS: PLATELET COUNT (AUTO) 45 /CMM (150-450)
--- NOTE | 2017-11-09 03:43 | NUR ---
MARKETING CONTENT COORDINATOR NOTE 2 UNITS OF PLATELETS INFUSED. LAB WAS DRAWN. RECEIVED CALL FROM LAB PLATELETS @ [phone]. WILL CONTINUE TO MONITOR.
[2017-11-09] MEDS: MEROPENEM 500 MG in IV NS 0.9% 50 ML IV SCH ×2 (04:03→16:00)
[2017-11-09 04:31] LABS: BAND % (MANUAL) 7 % (0.0-5.0); LYMPHOCYTES % (MANUAL) 9 % (16-48); MONOCYTES % (MANUAL) 1 % (0-11.0); NEUTROPHILS % (MANUAL) 83 (42-76)
--- NOTE | 2017-11-09 07:35 | NUR ---
TRADE SPECIALIST RECEIVED PATIENT FROM THE PREVIOUS SHIFT. PATIENT IS IN BED. SEDATED ON DIPRIVAN. VENT SETTINGS REVIEWED AND VERIFIED. SR ON MONITOR. STABLE BP. AFEBRILE. TURNED AND REPOSITIONED FOR COMFORT AND WOUND PREVENTION. WILL CONTINUE TO MONITOR AND PROVIDE CARE.
--- NOTE | 2017-11-09 07:36 | NUR ---
IRRIGATION INSTALLATION SPECIALIST CLOSING NOTE PT REMAINED STABLE DURING SHIFT. NO ACUTE DISTRESS NOTED. ALL NEEDS ATTENDED TO PROMPTLY. HOB ELEVATED. ETT 7.0 AND 21 CM AT THE LIP. OGTUBE IN PLACE. WILL ENDORSE TO NEXT SHIFT FOR CONTINUITY OF CARE.
[2017-11-09 08:08] LABS: ABG BASE EXCESS -1.8 mmol/L; ABG OXYGEN SATURATION 94.7 % (92.0-98.5); ABG PCO2 40.1 mmHg (35.0-45.0); ABG PO2 83.6 mmHg (75.0-100.0); AaDO2 300.1 mmHg; COHb 0.3 % (0.5-1.5); MetHb 0.5 % (0.0-1.5); O2Hb 93.9 % (94.0-97.0); PEEP,BG 5 cm H2O; SITE, ABG Right Radial; VENT MODE, BG AC 14 500 60% +5; VT, ABG 500 mL
[2017-11-09] MEDS: Z GUARD REMEDY 2 OZ OINT TP SCH (08:28)
[2017-11-09] MEDS: HYDROGEL DRESSING 90 GM TUBE TP SCH (08:28)
[2017-11-09] MEDS: PANTOPRAZOLE 40 MG VIAL IV SCH (08:37)
[2017-11-09] MEDS: LEVOTHYROXINE SODIUM 50 MCG TABLET NG SCH (08:37)
--- NOTE | 2017-11-09 09:55 | NUR ---
SEDATION VACATION AFTER 1.5 HRS OF SEDATION VACATION, PATIENT NOTED TO WAKE UP. PATIENT WAS ABLE TO FOLLOW SIMPLE COMMANDS. FACIAL GRIMACING AND TACHYPNEA NOTED. NO SEDATION GIVEN DURING SEDATION VACATION.
[2017-11-09] MEDS ORDERED: POTASSIUM CHLORIDE 20 MEQ TAB.PRT.SR PO ONE (11:00)
[2017-11-09] MEDS ORDERED: POTASSIUM CHLORIDE 20 MEQ POWDER PACKET GT ONE (12:00)
[2017-11-09 14:16] LABS: HAPTOGLOBIN <10 mg/dL (34-200)
[2017-11-09 15:05] LABS: BASOPHILS % (AUTO) 0.6 % (0.0-2.0); EOSINOPHILS % (AUTO) 0.7 % (0.0-6.0); HEMATOCRIT 28 % (33-45); HEMOGLOBIN 9.3 g/dL (11.5-14.8); LYMPHOCYTES # (AUTO) 0.3 /CMM (0.8-4.8); LYMPHOCYTES % (AUTO) 4.2 % (20.0-44.0); MEAN CORPUSCULAR HEMOGLOBIN 31 PG (26.0-33.0); MEAN CORPUSCULAR HGB CONC 33 g/dl (31.0-36.0); MEAN CORPUSCULAR VOLUME 92 fL (82-100); MONOCYTES % (AUTO) 0.3 % (2.0-12.0); NEUTROPHILS # (AUTO) 6.1 /CMM (1.8-8.9); NEUTROPHILS % (AUTO) 94.2 % (43.0-81.0); RDW COEFFICIENT OF VARIATION 20.2 (11.5-15.0); RED BLOOD CELL COUNT(AUTO) 3.03 MIL/uL (4.0-5.2); WHITE BLOOD COUNT (AUTO) 6.5 K/uL (4.3-11.0)
[2017-11-09 15:20] LABS: PLATELET COUNT (AUTO) 13 /CMM (150-450)
[2017-11-09 16:14] LABS: BAND % (MANUAL) 3 % (0.0-5.0); EOSINOPHILS % (MANUAL) 1 % (0-4); LYMPHOCYTES % (MANUAL) 5 % (16-48); MONOCYTES % (MANUAL) 2 % (0-11.0); NEUTROPHILS % (MANUAL) 89 (42-76)
[2017-11-09] MEDS: LACTOBACILLUS RHAMNOSUS GG 1 EACH CAP.SPRINK GT SCH (16:43)
[2017-11-09] MEDS: RENAL NOVASOURCE 1,000 ML BOTTLE GT PRN (18:12)
[2017-11-09] MEDS: NOREPINEPHRINE 8 MG in IV D5W 500 ML IV PRN (18:47)
--- NOTE | 2017-11-09 19:30 | NUR ---
RN/ICU NOTES: RECEIVED REPORT FROM ELINOR POND RN. PT CURRENTLY INTUBATED. ETT 7.0 AND 21CM AT THE LIP. HOB ELEVATED. ORAL TUBE IN PLACE. VENT SETTINGS WELL TOLERATED. SEDATED AT THIS TIME. IV JO PICC CLEAN AND PATENT W/ NO S/S OF INFECTION/INFILTRATION NOTED. AFEBRILE. WITH ORDERS TO INFUSE 2 UNITS OF PLATELETS. W/ NOVASOURCE @ 20ML/HR TOLERATING WELL. WILL CONTINUE TO MONITOR.
--- NOTE | 2017-11-09 20:35 | NUR ---
RN/ICU NOTES: PLATELET STARTED FIRST UNIT.
[2017-11-09] MEDS ORDERED: DEXTROSE 50%-WATER 50 ML DISP.SYRIN ONE (21:12)
--- NOTE | 2017-11-09 21:15 | NUR ---
PT RECEIVED INTUBATED WITH 7.0 ETT SECURED AT 21CM AT THE LIP. TOLERATING VENT SETTINGS. SX'D FRO MOD AMT OF THICK PALE SECRETIONS. VENT ALARMS SET AND AUDIBLE. AMBU BAG AT BEDSIDE. VENT PLUGGED INTO RED OUTLET. WILL CONTINUE TO MONITOR. Addendum: 11/09/17 at 2115 by NOEMY HOUSTON RT Amended: Links added.
[2017-11-09] MEDS ORDERED: DEXTROSE 50%-WATER 50 ML DISP.SYRIN IVP ONE (21:30)
--- NOTE | 2017-11-09 21:31 | NUR ---
OCULAR CARE TECHNICIAN NOTES: BS 19 RECHECKED 26. CHARGE NURSE INFORMED OVERRIDE DEXTROSE 50 MG IVP GIVEN AT 9:25 P.M. WILL RECHECK.
[2017-11-09] MEDS: SIMVASTATIN 10 MG TABLET NG SCH (21:44)
--- NOTE | 2017-11-09 21:54 | NUR ---
RN/ICU NOTES: BLOOD SUGAR 114.
[2017-11-10] VITALS (89 sets, daily range): BP systolic 88–147; BP diastolic 42–96
[2017-11-10] MEDS: BLOOD SUGAR DIAGNOSTIC 1 EACH STRIP IN SCH ×6 (01:00→21:06)
[2017-11-10] MEDS ORDERED: DEXTROSE 50%-WATER 50 ML DISP.SYRIN ONE (01:20)
[2017-11-10] MEDS ORDERED: IV 10% DEXTROSE 1,000 ML IV PRN (02:30)
--- NOTE | 2017-11-10 03:37 | NUR ---
RN/ ICU NOTES: BLOOD SUGAR AT 1 A.M. . DEXTROSE 50 IVP GIVEN AT 1:25 A.M. BLOOD SUGAR RECHECKED 116. CALLED KRISTIN AND INFORMED ABOUT HYPOGLYCEMIC EPISODES AND ALSO INFORMED THAT ACCORDING TO DR. CHRISTAL PINK'S NOTES FROM 11/09/2017 WANTED TO PUT PT. ON D10W BUT NO ORDERS. KRISTIN GAVE NEW ORDERS NOTED AND CARRIED OUT.
[2017-11-10] MEDS: MEROPENEM 500 MG in IV NS 0.9% 50 ML IV SCH ×2 (04:29→15:22)
[2017-11-10 05:26] LABS: EOSINOPHILS % (AUTO) 0.2 % (0.0-6.0); HEMATOCRIT 30 % (33-45); HEMOGLOBIN 10.3 g/dL (11.5-14.8); LYMPHOCYTES # (AUTO) 0.3 /CMM (0.8-4.8); LYMPHOCYTES % (AUTO) 2.3 % (20.0-44.0); MEAN CORPUSCULAR HEMOGLOBIN 32 PG (26.0-33.0); MEAN CORPUSCULAR HGB CONC 34 g/dl (31.0-36.0); MEAN CORPUSCULAR VOLUME 92 fL (82-100); MONOCYTES % (AUTO) 0.2 % (2.0-12.0); NEUTROPHILS # (AUTO) 11.1 /CMM (1.8-8.9); NEUTROPHILS % (AUTO) 97.3 % (43.0-81.0); RDW COEFFICIENT OF VARIATION 20.3 (11.5-15.0); RED BLOOD CELL COUNT(AUTO) 3.26 MIL/uL (4.0-5.2); WHITE BLOOD COUNT (AUTO) 11.4 K/uL (4.3-11.0)
[2017-11-10 05:38] LABS: CALCIUM, SERUM 7.2 mg/dL (8.5-10.1); CREATININE 1.6 mg/dL (0.6-1.3); MAGNESIUM 2.3 mg/dL (1.8-2.4); PHOSPHORUS 1.7 mg/dL (2.5-4.9); POTASSIUM 3.8 mmol/L (3.5-5.1)
[2017-11-10 05:39] LABS: PLATELET COUNT (AUTO) 33 /CMM (150-450)
[2017-11-10 06:06] LABS: BAND % (MANUAL) 77 % (0.0-5.0); LYMPHOCYTES % (MANUAL) 2 % (16-48); MONOCYTES % (MANUAL) 1 % (0-11.0); NEUTROPHILS % (MANUAL) 20 (42-76)
[2017-11-10 07:10] LABS: ABG BASE EXCESS -7.3 mmol/L; ABG OXYGEN SATURATION 84.5 % (92.0-98.5); ABG PCO2 40.1 mmHg (35.0-45.0); ABG PH 7.288 (7.350-7.450); ABG PO2 56.1 mmHg (75.0-100.0); AaDO2 616.8 mmHg; COHb 0.5 % (0.5-1.5); MetHb 0.4 % (0.0-1.5); O2Hb 83.7 % (94.0-97.0); PEEP,BG 10 cm H2O; SITE, ABG Right Radial; VT, ABG 500 mL
--- NOTE | 2017-11-10 07:42 | NUR ---
RT PATIENT REC'D ORALLY INTUBATED ON [facility] VENT WITH SETTINGS SET BY MD VARUN BHAGAT. VENT ALARMS CHECKED+ AUDIBLE. CUFF PRESSURE CHECKED DIRECTOR OF COLLECTIONS. SX'D WITH ZORAIDA BISHOP SEMITHICK SECRETIONS. B/S DIM COARSE. PATIENT SEDATED APPEARS COMFORTABLE. AMBU BAG AT HOB. CONT CURRENT PLAN OF RESP CARE. Addendum: 11/10/17 at 1537 by LIZZIE BLANTON RT Amended: Links added.
--- NOTE | 2017-11-10 07:47 | NUR ---
RN/ICU NOTES: REPORT GIVEN TO NEXT SHIFT NURSE FOR ANA.
--- NOTE | 2017-11-10 08:08 | NUR ---
INITIAL CONTROL CLERK AUDITING NOTE RCVD PT SEDATED, INTUBATED ETT 7.0 20 AT LIP TOLERATING ORDERED VENT SETTINGS. BILATERAL WRISTS RESTRAINTS IN PLACE. CIRCULATION CHECKS DONE. ST ON TELE. OG-TUBE PLACEMENT VERIFIED BY AUSCULTATION/ASPIRATION. NO RESIDUAL OBTAINED. TOLERATING TUBE FEEDING WELL. JO PICC C/D/I/PATENT. NO S/O INFILTRATION/PHLEBITIS OBSERVED UPON FLUSHING. RIGHT CHEST WALL DIALYSIS CATH DRESSING C/D/I. WILL CONTINUE TO MONITOR PT FOR SAFETY AND COMFORT. BED IN LOW AND LOCKED POSITION.
[2017-11-10] MEDS: LEVOTHYROXINE SODIUM 50 MCG TABLET NG SCH (08:26)
[2017-11-10] MEDS: FAMOTIDINE (20 MG) 20 MG TABLET PO SCH ×2 (08:26→21:05)
[2017-11-10] MEDS: LACTOBACILLUS RHAMNOSUS GG 1 EACH CAP.SPRINK GT SCH ×2 (08:26→17:19)
[2017-11-10] MEDS: HYDROGEL DRESSING 90 GM TUBE TP SCH (08:27)
[2017-11-10] MEDS: Z GUARD REMEDY 2 OZ OINT TP SCH (08:27)
--- NOTE | 2017-11-10 09:30 | NUR ---
VENT CHANGES MADE PER DR GOMEZ: 24, 400, +12 PEEP. Addendum: 11/10/17 at 1102 by LIZZIE OVALLES Amended: Links added.
--- NOTE | 2017-11-10 10:31 | NUR ---
SEDATION VACATION NOTE DIPRIVAN TITRATED DOWN, PT UNABLE TO FOLLOW SIMPLE COMMANDS, OBSERVED TO BE DESATURATING TO 80s, AND INCREASED WORK OF BREATHING OBSERVED. SEDATION WAS TITRATED UP.
[2017-11-10 10:33] LABS: ABG OXYGEN SATURATION 98.4 % (92.0-98.5); ABG PCO2 33.9 mmHg (35.0-45.0); ABG PH 7.341 (7.350-7.450); ABG PO2 259.8 mmHg (75.0-100.0); AaDO2 419.3 mmHg; COHb 0.3 % (0.5-1.5); MetHb 0.4 % (0.0-1.5); O2Hb 97.7 % (94.0-97.0); PEEP,BG 12 cm H2O; SITE, ABG Right Radial
--- NOTE | 2017-11-10 11:00 | NUR ---
FIO2 TITRATED TO 90% POST ABG RESULTS Addendum: 11/10/17 at 1102 by LIZZIE BLANTON RT Amended: Links added.
[2017-11-10] MEDS ORDERED: POTASSIUM PHOSPHATE MM 7.5 MMOL in IV D5W 100 ML IV SCH (11:30)
[2017-11-10] MEDS ORDERED: Sodium Phosphate 15 MMOL in IV D5W 250 ML IV ONE (11:30)
[2017-11-10] MEDS: PROPOFOL 10MG/ML 50ML 50 ML IV PRN ×2 (11:43→15:27)
--- NOTE | 2017-11-10 13:00 | NUR ---
PROFESSOR OF FINANCE NOTE DR. GOMEZ IN UNIT UPDATED ON PT'S CONDITION, RECOMMENDED CHANGE IN THE VENT SETTINGS PEEP 14 FIO2 60% NO ABG TODAY. WILL CONTINUE TO MONITOR.
[2017-11-10] MEDS: NOREPINEPHRINE 8 MG in IV D5W 500 ML IV PRN (13:46)
[2017-11-10 17:44] LABS: BASOPHILS # (AUTO) 0.1 /CMM (0.0-0.2); BASOPHILS % (AUTO) 1.1 % (0.0-2.0); EOSINOPHILS % (AUTO) 0.1 % (0.0-6.0); HEMATOCRIT 25 % (33-45); HEMOGLOBIN 8.1 g/dL (11.5-14.8); LYMPHOCYTES # (AUTO) 0.2 /CMM (0.8-4.8); LYMPHOCYTES % (AUTO) 3.6 % (20.0-44.0); MEAN CORPUSCULAR HEMOGLOBIN 32 PG (26.0-33.0); MEAN CORPUSCULAR HGB CONC 33 g/dl (31.0-36.0); MEAN CORPUSCULAR VOLUME 96 fL (82-100); MONOCYTES % (AUTO) 0.2 % (2.0-12.0); NEUTROPHILS # (AUTO) 5.1 /CMM (1.8-8.9); RDW COEFFICIENT OF VARIATION 22.1 (11.5-15.0); RED BLOOD CELL COUNT(AUTO) 2.56 MIL/uL (4.0-5.2); WHITE BLOOD COUNT (AUTO) 5.4 K/uL (4.3-11.0)
[2017-11-10 17:54] LABS: PLATELET COUNT (AUTO) 5 /CMM (150-450)
--- NOTE | 2017-11-10 18:35 | NUR ---
COFFEE SUPERVISOR NOTE PT REMAINS CRITICAL, SEDATED, INTUBATED 7.0 20 AT LIP TOLERATING ORDERED VENT SETTINGS WELL. SR ON TELE. OGTUBE PLACEMENT VERIFIED BY AUSCULTATION/ASPIRATION. NO RESIDUAL OBTAINED. JO PICC C/D/I/PATENT. NO S/O INFILTRATION/PHLEBITIS OBSERVED IVF INFUSING. PT'S CARE WILL BE ENDORSED TO LIVESTOCK HAULIER RN FOR CONTINUITY OF CARE. DR. KAMARA INFORMED OF AFTERNOON CBC RESULTS. ORDERS RCVD BY HUGH TORRES, CONSENT FOR BLOOD/BLOOD PRODUCT TRANSFUSION OBTAINED FROM PT'S DAUGHTER, JOSE.
--- NOTE | 2017-11-10 19:30 | NUR ---
Received patient in critical condition sedated on Diprivan drip 25 mcg/kg/min.Currently intubated to vent on AC mode.SR on Levophed drip for BP support and will titrate accordingly.Tube feeding via OGT infusing no residual noted.Placement verified.Patient anuric.HD cath to right upper chest intact.Noted with pitting edema to bilateral upper extremities kept elevated on pillows.Patient to received Platelets 3 units still not available from Blood Bank.Contact isolation implemented for ESBL URINE /BLOOD.Turned and repositioned.Continue monitoring.
[2017-11-10] MEDS: DESMOPRESSIN 20 MCG in IV NS 0.9% 50 ML IV SCH (19:37)
--- NOTE | 2017-11-10 20:00 | NUR ---
Patient Platelet Ct. 5 to received 3 units platelets.Called Blood Bank spoke with Everette. He said blood not yet available from [facility].Will follow up.Ddavp given per order.
[2017-11-10] MEDS: METRONIDAZOLE 500MG/ NS 100ML 500 MG in PREMIX 1 EA IV SCH (21:05)
[2017-11-10] MEDS: SIMVASTATIN 10 MG TABLET NG SCH (21:05)
--- NOTE | 2017-11-10 21:16 | NUR ---
Patient Blood sugar 309 and is on IVF D10W at 50 ml/hr.No insulin coverage ordered. felt carbonizer notified.Orders received to D/C D10W as IVF.
[2017-11-10] MEDS ORDERED: IV NS 0.9% 250 ML IV PRN (21:30)
[2017-11-10] MEDS ORDERED: IV NS 0.9% 250 ML BAG IV ONE (21:30)
--- NOTE | 2017-11-10 22:40 | NUR ---
PT RECEIVED INTUBATED WITH 7.0 ETT SECURED AT 21CM AT THE LIP. TOLERATING VENT SETTINGS. SX'D FOR SML AMT OF THIN SECRETIONS. VENT ALARMS SET AND AUDIBLE. AMBU BAG AT BEDSIDE. VENT PLUGGED INTO RED OUTLET. WILL CONTINUE TO MONITOR. Addendum: 11/10/17 at 2241 by NOEMY HOUSTON RT Amended: Links added.
[2017-11-11] VITALS (90 sets, daily range): BP systolic 89–150; BP diastolic 60–92
[2017-11-11] MEDS: PROPOFOL 10MG/ML 50ML 50 ML IV PRN ×2 (00:02→03:46)
[2017-11-11] MEDS: BLOOD SUGAR DIAGNOSTIC 1 EACH STRIP IN SCH ×6 (01:35→20:56)
[2017-11-11] MEDS: INSULIN REGULAR, HUMAN 100 UNIT/ML 3 ML VIAL SQ PRN ×4 (01:37→12:42)
--- NOTE | 2017-11-11 01:37 | NUR ---
Blood sugar checked 334,repeated 332.Patient no order for insulin sliding scale. notified with orders received and carried out.
[2017-11-11] MEDS ORDERED: IV NS 0.9% 250 ML BAG IV ONE (02:30)
--- NOTE | 2017-11-11 03:45 | NUR ---
Patient transfused with 3 units Platelets without adverse reactions.VS stable.
[2017-11-11] MEDS: MEROPENEM 500 MG in IV NS 0.9% 50 ML IV SCH ×2 (04:15→15:48)
[2017-11-11 04:56] LABS: EOSINOPHILS % (AUTO) 0.1 % (0.0-6.0); HEMATOCRIT 25 % (33-45); HEMOGLOBIN 8.8 g/dL (11.5-14.8); LYMPHOCYTES # (AUTO) 0.4 /CMM (0.8-4.8); LYMPHOCYTES % (AUTO) 2.9 % (20.0-44.0); MEAN CORPUSCULAR HEMOGLOBIN 32 PG (26.0-33.0); MEAN CORPUSCULAR HGB CONC 35 g/dl (31.0-36.0); MEAN CORPUSCULAR VOLUME 90 fL (82-100); MONOCYTES # (AUTO) 0.1 /CMM (0.1-1.30); MONOCYTES % (AUTO) 1.1 % (2.0-12.0); NEUTROPHILS # (AUTO) 11.6 /CMM (1.8-8.9); NEUTROPHILS % (AUTO) 95.9 % (43.0-81.0); PLATELET COUNT (AUTO) 101 /CMM (150-450); RDW COEFFICIENT OF VARIATION 18.4 (11.5-15.0); WHITE BLOOD COUNT (AUTO) 12.1 K/uL (4.3-11.0)
[2017-11-11] MEDS: METRONIDAZOLE 500MG/ NS 100ML 500 MG in PREMIX 1 EA IV SCH ×3 (05:05→20:56)
[2017-11-11 05:11] LABS: CALCIUM, SERUM 7.1 mg/dL (8.5-10.1); CREATININE 1.9 mg/dL (0.6-1.3); POTASSIUM 3.4 mmol/L (3.5-5.1)
--- NOTE | 2017-11-11 06:30 | NUR ---
Patient remains sedated of Diprivan at 25 mcg.Levophed Drip titrated down to 2mcg/min.VS stable. SR.AM care and oral care done.No BM noted.Tolerating OGT feeding.AM labs resulted.Platelet CT 101 and H/H 8.8.BS Remains at 300's coverage given per SS.No distress noted.Turned and repositioned. Will endorse to AM shift RN.
[2017-11-11] MEDS: DESMOPRESSIN 20 MCG in IV NS 0.9% 50 ML IV SCH ×2 (07:20→18:52)
[2017-11-11] MEDS: LEVOTHYROXINE SODIUM 50 MCG TABLET NG SCH (07:20)
--- NOTE | 2017-11-11 07:24 | NUR ---
INITIAL INTERNATIONAL SPECIALIST NOTE RCVD PT SEDATED, INTUBATED ETT 7.0 20 AT LIP TOLERATING ORDERED VENT SETTINGS. SR ON TELE. OG-TUBE PLACEMENT VERIFIED BY AUSCULTATION/ASPIRATION. NO RESIDUAL OBTAINED. JO PICC C/D/I/PATENT. NO S/O INFILTRATION/PHLEBITIS OBSERVED IVF INFUSING. WILL CONTINUE TO MONITOR PT FOR SAFETY AND COMFORT. BED IN LOW AND LOCKED POSITION.
[2017-11-11] MEDS: RENAL NOVASOURCE 1,000 ML BOTTLE GT PRN (07:26)
--- NOTE | 2017-11-11 07:45 | NUR ---
RT PATIENT REC'D ORALLY INTUBATED ON [facility] VENT WITH SETTINGS SET BY MD VARUN BHAGAT. VENT ALARMS CHECKED+ AUDIBLE. CUFF PRESSURE CHECKED DISBURSING OFFICER. SX'D WITH MOD AMT BISHOP SEMITHICK SECRETIONS. B/S DIM COARSE. PATIENT SEDATED APPEARS COMFORTABLE. AMBU BAG AT [facility]. CONT CURRENT PLAN OF RESP CARE.
[2017-11-11 08:24] LABS: ABG BASE EXCESS -4.8 mmol/L; ABG OXYGEN SATURATION 98.4 % (92.0-98.5); ABG PCO2 33.1 mmHg (35.0-45.0); ABG PH 7.388 (7.350-7.450); ABG PO2 268.3 mmHg (75.0-100.0); AaDO2 123.1 mmHg; COHb 0.3 % (0.5-1.5); MetHb 0.5 % (0.0-1.5); O2Hb 97.6 % (94.0-97.0); PEEP,BG 14 cm H2O; SITE, ABG Right Radial
[2017-11-11] MEDS: FAMOTIDINE (20 MG) 20 MG TABLET PO SCH ×2 (08:24→20:56)
[2017-11-11] MEDS: LACTOBACILLUS RHAMNOSUS GG 1 EACH CAP.SPRINK GT SCH ×2 (08:24→16:31)
[2017-11-11] MEDS: Z GUARD REMEDY 2 OZ OINT TP SCH (08:27)
[2017-11-11] MEDS: HYDROGEL DRESSING 90 GM TUBE TP SCH (08:30)
--- NOTE | 2017-11-11 09:17 | NUR ---
WELDER TACK NOTE PT UNDERGOING DIALYSIS, BP MAINTAINING WITH PRESSOR SUPPORT. SEDATION VACATION ONGOING. PT APPEARS DROWSY, UNABLE TO FOLLOW SIMPLE COMMANDS IN [place]. WILL CONTINUE TO MONITOR. PT'S SON, RUBY AT BEDSIDE UPDATED ON PT'S CONDITION, QUESTIONS ENCOURAGED AND ANSWERED TO HIS SATISFACTION.
--- NOTE | 2017-11-11 10:19 | NUR ---
CLIENT CUSTOMER MANAGER NOTE PT ABLE TO FOLLOW SIMPLE COMMANDS IN BRIT[place], PT'S SON AT BEDSIDE. TOLERATING DIALYSIS AND BEING OFF SEDATION. VITALS REMAIN STABLE WITH PRESSOR SUPPORT. WILL CONTINUE TO MONITOR.
--- NOTE | 2017-11-11 12:08 | NUR ---
RECRUITMENT ASSISTANT NOTE PT'S CORE TEMP 95.7 BEAR HUGGER BLANKET IN PLACE WILL CONTINUE TO MONITOR TEMP.
--- NOTE | 2017-11-11 14:11 | NUR ---
EDUCATION COUNSELOR NOTE DR. GOMEZ IN UNIT UPDATED ON PT'S CONDITION. NO NEW ORDERS RCVD. PT REMAINS OFF PRESSORS AND OFF SEDATION TOLERATING WELL. BEAR HUGGER REMOVED. PT'S TEMP NORMALIZED, PT SIGNALING TO TAKE BLANKET OFF.
--- NOTE | 2017-11-11 15:51 | NUR ---
RT PER DR GOMEZ PEEP DECREASED TO 10.
[2017-11-11] MEDS ORDERED: VANCOMYCIN 1 GM in IV D5W 250 ML IV ONE (17:00)
[2017-11-11 18:09] LABS: BASOPHILS # (AUTO) 0.1 /CMM (0.0-0.2); BASOPHILS % (AUTO) 1.3 % (0.0-2.0); EOSINOPHILS % (AUTO) 0.3 % (0.0-6.0); HEMATOCRIT 24 % (33-45); HEMOGLOBIN 8.3 g/dL (11.5-14.8); LYMPHOCYTES # (AUTO) 0.3 /CMM (0.8-4.8); LYMPHOCYTES % (AUTO) 3.5 % (20.0-44.0); MEAN CORPUSCULAR HEMOGLOBIN 31 PG (26.0-33.0); MEAN CORPUSCULAR HGB CONC 34 g/dl (31.0-36.0); MEAN CORPUSCULAR VOLUME 91 fL (82-100); MONOCYTES % (AUTO) 0.2 % (2.0-12.0); NEUTROPHILS # (AUTO) 8.3 /CMM (1.8-8.9); NEUTROPHILS % (AUTO) 94.7 % (43.0-81.0); RDW COEFFICIENT OF VARIATION 19.7 (11.5-15.0); RED BLOOD CELL COUNT(AUTO) 2.68 MIL/uL (4.0-5.2); WHITE BLOOD COUNT (AUTO) 8.8 K/uL (4.3-11.0)
--- NOTE | 2017-11-11 18:11 | NUR ---
KETTLE HAND NOTE PT AWAKE AND ALERT TO SELF, ABLE TO FOLLOW SIMPLE COMMANDS IN [place]. SR ON TELE. INTUBATED TOLERATING ORDERED VENT SETTINGS WELL. JO PICC C/D/I/PATENT. NO S/O INFILTRATION/PHLEBITIS OBSERVED. OG-TUBE PLACEMENT VERIFIED BY AUSCULTATION/ASPIRATION NO RESIDUAL OBTAINED. PT'S CARE WILL BE ENDORSED TO APPAREL TRIMMINGS SALES REPRESENTATIVE RN FOR CONTINUITY OF CARE. BED IN LOW AND LOCKED POSITION. CALL LIGHT WITHIN REACH.
[2017-11-11 18:59] LABS: PLATELET COUNT (AUTO) 17 /CMM (150-450)
[2017-11-11 19:05] LABS: BAND % (MANUAL) 10 % (0.0-5.0); EOSINOPHILS % (MANUAL) 1 % (0-4); LYMPHOCYTES % (MANUAL) 3 % (16-48); MONOCYTES % (MANUAL) 2 % (0-11.0); NEUTROPHILS % (MANUAL) 84 (42-76)
[2017-11-11] MEDS: DEXTROSE 50%-WATER 50 ML DISP.SYRIN IV PRN (20:50)
--- NOTE | 2017-11-11 21:00 | NUR ---
PT RECEIVED ORALLY INTUBATED WITH 7.0 ETT SECURED AT 21CM AT THE LIP. TOLERATING NOTED VENT SETTINGS. SX'D FOR SML AMT OF THIN WHITE SECRETIONS. SALES ACCOUNT EXECUTIVE DONE AND ETT SECURE WITH ANCHOR FAST. VENT ALARMS CHECKED AND AUDIBLE. AMBU BAG AT BEDSIDE. VENT PLUGGED INTO RED OUTLET. WILL CONTINUE TO MONITOR.
[2017-11-11] MEDS ORDERED: IV D5W 1,000 ML IV SCH (21:30)
[2017-11-11] MEDS: SIMVASTATIN 10 MG TABLET NG SCH (22:11)
[2017-11-12] VITALS (37 sets, daily range): BP systolic 94–132; BP diastolic 58–93
[2017-11-12] MEDS: BLOOD SUGAR DIAGNOSTIC 1 EACH STRIP IN SCH ×6 (01:35→21:23)
[2017-11-12] MEDS: INSULIN REGULAR, HUMAN 100 UNIT/ML 3 ML VIAL SQ PRN ×2 (01:38→05:58)
[2017-11-12] MEDS: MEROPENEM 500 MG in IV NS 0.9% 50 ML IV SCH ×2 (03:55→15:27)
[2017-11-12 04:25] LABS: EOSINOPHILS # (AUTO) 0.1 /CMM (0.0-0.7); EOSINOPHILS % (AUTO) 0.6 % (0.0-6.0); HEMATOCRIT 23 % (33-45); HEMOGLOBIN 7.9 g/dL (11.5-14.8); LYMPHOCYTES # (AUTO) 0.7 /CMM (0.8-4.8); LYMPHOCYTES % (AUTO) 7.7 % (20.0-44.0); MEAN CORPUSCULAR HEMOGLOBIN 31 PG (26.0-33.0); MEAN CORPUSCULAR HGB CONC 34 g/dl (31.0-36.0); MEAN CORPUSCULAR VOLUME 91 fL (82-100); MONOCYTES % (AUTO) 0.1 % (2.0-12.0); NEUTROPHILS # (AUTO) 8.5 /CMM (1.8-8.9); NEUTROPHILS % (AUTO) 91.6 % (43.0-81.0); PLATELET COUNT (AUTO) 52 /CMM (150-450); RED BLOOD CELL COUNT(AUTO) 2.53 MIL/uL (4.0-5.2); WHITE BLOOD COUNT (AUTO) 9.3 K/uL (4.3-11.0)
[2017-11-12 04:34] LABS: CALCIUM, SERUM 7.2 mg/dL (8.5-10.1); CREATININE 1.4 mg/dL (0.6-1.3); POTASSIUM 2.9 mmol/L (3.5-5.1)
[2017-11-12 05:10] LABS: BAND % (MANUAL) 4 % (0.0-5.0); LYMPHOCYTES % (MANUAL) 9 % (16-48); NEUTROPHILS % (MANUAL) 87 (42-76)
[2017-11-12] MEDS: METRONIDAZOLE 500MG/ NS 100ML 500 MG in PREMIX 1 EA IV SCH ×3 (05:57→21:19)
--- NOTE | 2017-11-12 07:00 | NUR ---
RN NOTE RECEIVED PT ON BED, ORALLY INTUBATED, A/Ox1, FOLLOWS SIMPLE COMMANDS , HAS TENDENCY TO PULL ON HER LINED , WRIST PROTECTIVE DEVICE ON FOR PT SAFETY , TOLERATING CURRENT VENT SETTINGS WELL. ON TELE SR HR IN 80'S , L UA PICC C/D/I/PATENT. OG-TUBE WITH NOVASOURCE RUNNING AT 30 CC/HR, PLACEMENT VERIFIED BY AUSCULTATION/ASPIRATION, NO RESIDUAL NOTED, D5W RUNNING AT 50CC/HR VIA L UPPER ARM PICC LINE , R CW HD CATH SITE CDI, SR UP x3, BED LOCKED AND IN LOWEST POSITION. CALL LIGHT WITHIN REACH. CONTINUE TO MONITOR CLOSELY .
[2017-11-12] MEDS ORDERED: IV D5W 1,000 ML IV PRN (07:11)
--- NOTE | 2017-11-12 07:30 | NUR ---
RT PATIENT REC'D ORALLY INTUBATED ON [facility] VENT WITH SETTINGS SET BY MD VARUN BHAGAT. VENT ALARMS CHECKED+ AUDIBLE. CUFF PRESSURE CHECKED HAND WOOD SANDER. SX'D WITH SMALL AMT PALE SEMITHICK SECRETIONS. B/S DIM. PATIENT AWAKE, NO SOB, APPEARS COMFORTABLE. AMBU BAG AT [facility]. CONT CURRENT PLAN OF RESP CARE.
[2017-11-12] MEDS: DESMOPRESSIN 20 MCG in IV NS 0.9% 50 ML IV SCH (07:55)
[2017-11-12] MEDS: LEVOTHYROXINE SODIUM 50 MCG TABLET NG SCH (07:55)
[2017-11-12] MEDS: LACTOBACILLUS RHAMNOSUS GG 1 EACH CAP.SPRINK GT SCH ×2 (08:01→16:48)
[2017-11-12] MEDS: Z GUARD REMEDY 2 OZ OINT TP SCH (08:04)
[2017-11-12] MEDS: HYDROGEL DRESSING 90 GM TUBE TP SCH (08:04)
[2017-11-12] MEDS: FAMOTIDINE (20 MG) 20 MG TABLET PO SCH ×2 (08:09→21:20)
--- NOTE | 2017-11-12 09:26 | NUR ---
RT PER DR ARANDA PEEP TITRATED TO 5. CAM ROJAS NOTIFIED
[2017-11-12] MEDS ORDERED: POTASSIUM CHLORIDE 20 MEQ TAB.PRT.SR PO ONE (11:00)
--- NOTE | 2017-11-12 11:00 | NUR ---
RN NOTES DR PINK NOTIFIED REGARDING K=2.9 AND H/H 7.9 .
[2017-11-12] MEDS ORDERED: POTASSIUM CHLORIDE 20 MEQ POWDER PACKET PO ONE (11:30)
--- NOTE | 2017-11-12 13:00 | NUR ---
RN NOTE DR PINK'S OFFICE NOTIFIED REGARDING MED RECON. SPOKEN TO ROYER
--- NOTE | 2017-11-12 13:30 | NUR ---
RN NOTES RADIOLOGIST RECOMMENDING CT SCAN OF THE KIDNEY IN ORDER TO SEE THE LEFT KIDNEY CLEARLY . DR PINK'S OFFICE NOTIFIED AND SPOKEN TO TERESA .
[2017-11-12 13:31] LABS: ABG OXYGEN SATURATION 93.5 % (92.0-98.5); ABG PCO2 35.7 mmHg (35.0-45.0); ABG PH 7.459 (7.350-7.450); ABG PO2 71.6 mmHg (75.0-100.0); AaDO2 244.7 mmHg; COHb 0.3 % (0.5-1.5); MetHb 0.7 % (0.0-1.5); O2Hb 92.6 % (94.0-97.0); SITE, ABG Right Femoral
[2017-11-12] MEDS: RENAL NOVASOURCE 1,000 ML BOTTLE GT PRN (15:31)
--- NOTE | 2017-11-12 16:00 | NUR ---
RN NOTES T=95.0, PT COVERED WITH BEAR HUGGER , CONTINUE TO MONITOR .
[2017-11-12 18:09] LABS: HEMATOCRIT 30 % (33-45); HEMOGLOBIN 10.3 g/dL (11.5-14.8); MEAN CORPUSCULAR HEMOGLOBIN 31 PG (26.0-33.0); MEAN CORPUSCULAR HGB CONC 34 g/dl (31.0-36.0); MEAN CORPUSCULAR VOLUME 91 fL (82-100); RDW COEFFICIENT OF VARIATION 19.9 (11.5-15.0); RED BLOOD CELL COUNT(AUTO) 3.32 MIL/uL (4.0-5.2); WHITE BLOOD COUNT (AUTO) 10.3 K/uL (4.3-11.0)
[2017-11-12 18:17] LABS: PLATELET COUNT (AUTO) 28 /CMM (150-450)
--- NOTE | 2017-11-12 18:50 | NUR ---
RN NOTES NATE MILLS ON T =95.6, ET SUCTIONING DONE , TOLERATING CURRENT JENNIFER SETTING WELL , TOLERATING NOVASOURCE AT 30CC/HR WELL , NO RESIDUAL NOTED, L UPPER ARM PICC LINE CDI, SR x3, BED LOCKED AND IN LOWEST POSITION , WILL ENDORSE TO LAMINATION INSPECTOR NURSE FOR ANA.
[2017-11-12 18:52] LABS: BAND % (MANUAL) 11 % (0.0-5.0); LYMPHOCYTES % (MANUAL) 1 % (16-48); MONOCYTES % (MANUAL) 7 % (0-11.0); NEUTROPHILS % (MANUAL) 81 (42-76)
--- NOTE | 2017-11-12 19:00 | NUR ---
RN NOTE S T= 96.3 AT THIS TIME .
--- NOTE | 2017-11-12 20:00 | NUR ---
AUTOMOBILE BRAKES BONDER NOTE RECEIVED PT ON BED WITH EYES CLOSED. ORALLY INTUBATED, A/Ox1, FOLLOWS SIMPLE COMMANDS. NO DISTRESS OR DISCOMFORT NOTED. NO S/S OF PAIN NOTED. ON BILATERAL SOFT WRIST RESTRAINTS FOR PT SAFETY , PT ON VENT, TOLERATING SETTINGS WELL. ON TELE SR HR IN 70'S , JO PICC LINE INTACT AND PATENT, NO S/S OF INFILTRATION NOTED. OG-TUBE WITH NOVASOURCE RUNNING AT 30 CC/HR, 0 ML RESIDUAL NOTED. RCW HD CATH SITE CDI, SR UP x3, BED LOCKED AND IN LOWEST POSITION. REPOSITION HER FOR SKIN MANAGEMENT. ALSO BED BATH GIVEN AT THIS TIME. BM X 1. CALL LIGHT WITHIN REACH. CONTINUE TO MONITOR CLOSELY. DTR AT BED SIDE.
--- NOTE | 2017-11-12 20:05 | NUR ---
GUIDE DOG TRAINER NOTE PT ON MOLINA HUGGER RECTAL TEMP 97.3. SACRUM WOUND CARE GIVEN. PT TOLERATED WELL. OFFLOADED SACRUM.
[2017-11-12] MEDS: SIMVASTATIN 10 MG TABLET NG SCH (21:19)
--- NOTE | 2017-11-12 21:49 | NUR ---
PT RECEIVED ON VENT VIA CHARTED SETTINGS AND ROUTE. AMBU BAG AT BEDSIDE, ALARMS SET AND AUDIBLE. VENT PLUGGED INTO RED OUTLET. PT TOLERATING VENT WELL AT THIS TIME. WILL CONTINUE TO MONITOR Addendum: 11/12/17 at 2153 by LAILA HEREDIA RT Amended: Links added.
[2017-11-12] MEDS: ACETAMINOPHEN 325 MG TABLET PO PRN (21:54)
--- NOTE | 2017-11-12 21:54 | NUR ---
CHEF BROILER OR FRY NOTE TYLENOL 650 MG VIA ORAL FEEDING TUBE GIVEN FOR COMFORT.
--- NOTE | 2017-11-12 22:00 | NUR ---
[employer] NOTE CONSENT FOR CT SCAN ABD WITH CONTRAST RECEIVED OVER THE PHONE FROM DTR JOSE GORDON. CHARGE NURSE FLACO WITNESSED IT.
[2017-11-13] VITALS (57 sets, daily range): BP systolic 74–126; BP diastolic 44–97
[2017-11-13] MEDS: BLOOD SUGAR DIAGNOSTIC 1 EACH STRIP IN SCH ×6 (00:54→21:35)
[2017-11-13] MEDS: MEROPENEM 500 MG in IV NS 0.9% 50 ML IV SCH ×2 (03:33→15:27)
[2017-11-13] MEDS: METRONIDAZOLE 500MG/ NS 100ML 500 MG in PREMIX 1 EA IV SCH (04:46)
[2017-11-13 05:07] LABS: EOSINOPHILS % (AUTO) 0.2 % (0.0-6.0); HEMATOCRIT 25 % (33-45); HEMOGLOBIN 8.6 g/dL (11.5-14.8); LYMPHOCYTES # (AUTO) 0.4 /CMM (0.8-4.8); MEAN CORPUSCULAR HEMOGLOBIN 31 PG (26.0-33.0); MEAN CORPUSCULAR HGB CONC 34 g/dl (31.0-36.0); MEAN CORPUSCULAR VOLUME 91 fL (82-100); MONOCYTES # (AUTO) 0.1 /CMM (0.1-1.30); MONOCYTES % (AUTO) 0.9 % (2.0-12.0); NEUTROPHILS # (AUTO) 9.4 /CMM (1.8-8.9); NEUTROPHILS % (AUTO) 94.9 % (43.0-81.0); RED BLOOD CELL COUNT(AUTO) 2.78 MIL/uL (4.0-5.2); WHITE BLOOD COUNT (AUTO) 9.9 K/uL (4.3-11.0)
[2017-11-13 05:20] LABS: PLATELET COUNT (AUTO) 21 /CMM (150-450)
--- NOTE | 2017-11-13 05:23 | NUR ---
FISH FRYER NOTE LATEST PLATELETS RESULT CAME 21. PER MD INFUSE PLATELETS IF BELOW [id number].
[2017-11-13 05:39] LABS: BAND % (MANUAL) 5 % (0.0-5.0); LYMPHOCYTES % (MANUAL) 4 % (16-48); NEUTROPHILS % (MANUAL) 91 (42-76)
--- NOTE | 2017-11-13 06:28 | NUR ---
ALEMITE OPERATOR NOTE PT IN BE AWAKE. NO DISTRESS OR DISCOMFORT NOTED. PT IS NPO. ON TELE SR HR 80'S. JO PICC LINE INTACT, BUT VERY HARD TO FLUSH IT. UNABLE TO DO BLOOD WITHDRAWN FOR THE PICC LINE. TOLERATING VENT SETTINGS. ALL NEEDS ATTENDED. SIDE RAILS UP X 3 AND CALL LIGHT WITHIN REACH. WILL ENDORSE TO DAY SHIFT NURSE FOR CONTINUE TO CARE.
--- NOTE | 2017-11-13 07:55 | NUR ---
INITIAL DEPENDENCY CASE MANAGER NOTE RCVD PT AWAKE, UNABLE TO FOLLOW SIMPLE COMMANDS IN MICRONESIAN AT THIS TIME. INTUBATED ETT 7.0 20 AT LIP. TOLERATING ORDERED VENT SETTINGS. SR ON TELE. OG-TUBE ADVANCED PER RADIOLOGIST RECOMMENDATION. SECOND RN CAM MORELAND CONFIRMED PLACEMENT BY AUSCULTATION/ASPIRATION. PT NPO AT THIS TIME DUE TO CT ABD/PELVIS SCHEDULED FOR THIS AM. JO PICC C/D/I/PATENT. NO S/O INFILTRATION/PHLEBITIS OBSERVED UPON FLUSHING PORTS. DIALYSIS CATH DRESSING C/D/I. WILL CONTINUE TO MONITOR PT FOR SAFETY AND COMFORT. CALL LIGHT WITHIN REACH. BED IN LOW AND LOCKED POSITION.
[2017-11-13] MEDS: LEVOTHYROXINE SODIUM 50 MCG TABLET NG SCH (08:22)
[2017-11-13] MEDS: FAMOTIDINE (20 MG) 20 MG TABLET PO SCH ×2 (08:22→21:37)
[2017-11-13] MEDS: LACTOBACILLUS RHAMNOSUS GG 1 EACH CAP.SPRINK GT SCH ×2 (08:22→17:39)
[2017-11-13] MEDS: HYDROGEL DRESSING 90 GM TUBE TP SCH (08:23)
[2017-11-13] MEDS: Z GUARD REMEDY 2 OZ OINT TP SCH (08:23)
[2017-11-13 08:25] LABS: CALCIUM, SERUM 7.5 mg/dL (8.5-10.1); CREATININE 1.7 mg/dL (0.6-1.3); POTASSIUM 4.2 mmol/L (3.5-5.1)
--- NOTE | 2017-11-13 08:45 | NUR ---
DEVOPS ARCHITECT NOTE PT TRANSPORTED TO CT PER PROTOCOL WITH RT AND RN AT BEDSIDE.
[2017-11-13] MEDS ORDERED: CT SWABBABLE VALVE TRANS SET 1 EA INFUS.SET MC ONE (09:10)
[2017-11-13] MEDS ORDERED: IOHEXOL-300 100 ML VIAL IV ONE (09:10)
[2017-11-13] MEDS ORDERED: IV NS 0.9% 250 ML IV ONE (09:10)
[2017-11-13] MEDS: RENAL NOVASOURCE 1,000 ML BOTTLE GT PRN (09:53)
--- NOTE | 2017-11-13 10:02 | NUR ---
HOLLOCK MAKER NOTE PT BACK IN UNIT UNDERGOING WEANING TRIAL, PT ON SIMV MODE VITAL SIGNS STABLE, SATURATION 86%. PT NOT SHOWING ANY SIGNS OF DISTRESS AT THIS TIME. DR. ARANDA CAME TO ASSESS PT AT BEDSIDE RECOMMENDED TO PLACE PT BACK ON AC MODE. RT NOTIFIED. WILL CONTINUE TO MONITOR.
--- NOTE | 2017-11-13 12:14 | NUR ---
COMMISSIONED POLICE OFFICER NOTE PT'S CORE TEMP DROPPED TO 95.6 BEAR HUGGER PLACED OVER PT. WILL CONTINUE TO MONITOR.
[2017-11-13] MEDS: INSULIN REGULAR, HUMAN 100 UNIT/ML 3 ML VIAL SQ PRN (13:03)
[2017-11-13] MEDS: ACETAMINOPHEN 325 MG TABLET PO PRN (15:27)
[2017-11-13] MEDS: ALBUMIN 25% 25 GM in PREMIX 1 EA IV PRN ×2 (16:16→16:45)
[2017-11-13 17:34] LABS: EOSINOPHILS % (AUTO) 0.1 % (0.0-6.0); HEMATOCRIT 26 % (33-45); HEMOGLOBIN 8.8 g/dL (11.5-14.8); LYMPHOCYTES # (AUTO) 0.4 /CMM (0.8-4.8); LYMPHOCYTES % (AUTO) 4.4 % (20.0-44.0); MEAN CORPUSCULAR HEMOGLOBIN 31 PG (26.0-33.0); MEAN CORPUSCULAR HGB CONC 35 g/dl (31.0-36.0); MEAN CORPUSCULAR VOLUME 91 fL (82-100); MONOCYTES # (AUTO) 0.1 /CMM (0.1-1.30); NEUTROPHILS # (AUTO) 8.2 /CMM (1.8-8.9); NEUTROPHILS % (AUTO) 94.5 % (43.0-81.0); RDW COEFFICIENT OF VARIATION 19.2 (11.5-15.0); RED BLOOD CELL COUNT(AUTO) 2.81 MIL/uL (4.0-5.2); WHITE BLOOD COUNT (AUTO) 8.7 K/uL (4.3-11.0)
[2017-11-13 17:41] LABS: PLATELET COUNT (AUTO) 14 /CMM (150-450)
[2017-11-13 18:43] LABS: BAND % (MANUAL) 8 % (0.0-5.0); LYMPHOCYTES % (MANUAL) 3 % (16-48); MONOCYTES % (MANUAL) 3 % (0-11.0); NEUTROPHILS % (MANUAL) 86 (42-76)
--- NOTE | 2017-11-13 19:20 | NUR ---
ELEVATOR RUNNER NOTE PT REMAINS STABLE SHOWING NO S/O DISTRESS/PAIN AT THIS TIME. TOLERATING ORDERED VENT SETTINGS ETT 7.0 20 AT LIP AREA. OG TUBE PLACEMENT VERIFIED BY AUSCULTATION/ASPIRATION. JO PICC C/D/I/PATENT. NO S/O INFILTRATION/PHLEBITIS OBSERVED UPON FLUSHING. PT'S CARE ENDORSED TO LOCATE TECHNICIAN RN. BED IN LOW AND LOCKED.
--- NOTE | 2017-11-13 19:30 | NUR ---
MOTOR SETTER RCD PT W/DX RESP FAIL; PT AWAKE ON BL SOFT WRIST RESTRAINTS; ABLE TO FOLLOW SIMPLE COMMANDS. NSR ON MONITOR. INTUBATED 7.0 @ 24 W/VENT SETTINGS AC 24 400 50% +5; SMALL WHITE SECRETIONS NOTED. OG TUBE W/ NOVASOURCE AT 30 ML/HR NO RESIDUALS AT THIS TIME. RENDERED ORAL CARE AND REPOSITIONED PT. PENDING PLATELET TRANSFUSION.
--- NOTE | 2017-11-13 20:17 | NUR ---
PT RECEIVED INTUBATED 7.0 ETT SECURED AT 20CM AT THE LIP. NO RESP DISTRESS NOTED. BS CL/DM. SX'D FOR SML AMT OF THIN PALE SECRETIONS. VENT ALARMS SET AND AUDIBLE. AMBU BAG AT [facility]. VENT PLUGGED INTO RED OUTLET. WILL CONTINUE TO MONITOR. Addendum: 11/13/17 at 2019 by NOEMY HOUSTON RT Amended: Links added.
--- NOTE | 2017-11-13 20:40 | NUR ---
SLIP MAKER NON ADMIT STK MEDS FOR PT SAFETY.
--- NOTE | 2017-11-13 21:30 | NUR ---
DIRECTOR BUSINESS DEVELOPMENT BLOOD SUGAR 77; NO COVERAGE NEEDED AT THIS TIME.
[2017-11-13] MEDS: SIMVASTATIN 10 MG TABLET NG SCH (21:37)
--- NOTE | 2017-11-13 23:35 | NUR ---
VICE PRESIDENT MEDIA RELATIONS FIRST UNIT PLATELET INFUSING D/T PLATELET 14.
[2017-11-14] VITALS (46 sets, daily range): BP systolic 47–132; BP diastolic 25–94
[2017-11-14] MEDS: BLOOD SUGAR DIAGNOSTIC 1 EACH STRIP IN SCH ×6 (01:38→21:14)
[2017-11-14] MEDS: MEROPENEM 500 MG in IV NS 0.9% 50 ML IV SCH ×2 (04:30→16:21)
[2017-11-14 05:06] LABS: BASOPHILS % (AUTO) 0.1 % (0.0-2.0); EOSINOPHILS % (AUTO) 0.2 % (0.0-6.0); LYMPHOCYTES # (AUTO) 0.2 /CMM (0.8-4.8); LYMPHOCYTES % (AUTO) 3.2 % (20.0-44.0); MEAN CORPUSCULAR HEMOGLOBIN 32 PG (26.0-33.0); MEAN CORPUSCULAR HGB CONC 35 g/dl (31.0-36.0); MEAN CORPUSCULAR VOLUME 91 fL (82-100); MONOCYTES % (AUTO) 0.3 % (2.0-12.0); NEUTROPHILS # (AUTO) 6.8 /CMM (1.8-8.9); NEUTROPHILS % (AUTO) 96.2 % (43.0-81.0); RDW COEFFICIENT OF VARIATION 19.8 (11.5-15.0); RED BLOOD CELL COUNT(AUTO) 2.21 MIL/uL (4.0-5.2); WHITE BLOOD COUNT (AUTO) 7.1 K/uL (4.3-11.0)
[2017-11-14 05:30] LABS: ALBUMIN 2.1 g/dL (3.4-5.0); BILIRUBIN,TOTAL 6.1 mg/dL (0.2-1.0); CALCIUM, SERUM 8.2 mg/dL (8.5-10.1); CREATININE 1.5 mg/dL (0.6-1.3); HEMATOCRIT 20 % (33-45); MAGNESIUM 1.9 mg/dL (1.8-2.4); PHOSPHORUS 1.8 mg/dL (2.5-4.9); PLATELET COUNT (AUTO) 25 /CMM (150-450); POTASSIUM 3.7 mmol/L (3.5-5.1); TOTAL PROTEIN, SERUM 4.9 g/dL (6.4-8.2)
[2017-11-14 05:56] LABS: BAND % (MANUAL) 14 % (0.0-5.0); LYMPHOCYTES % (MANUAL) 5 % (16-48); MONOCYTES % (MANUAL) 1 % (0-11.0); NEUTROPHILS % (MANUAL) 80 (42-76)
--- NOTE | 2017-11-14 07:30 | NUR ---
ICU/RN: Pt received intubated on vent, tolerating current settings. Pt off sedation, is calm, no distress noted. Pt awake and alert, follows simple commands in Yi and demonstrates strength in both upper and lower bilat extremities. Restraint care rendered, pt attempts to pull lines and tubes necessary for care. Turned and repositioned for comfort, dressing C/D/I. JO PICC with no blood return, however flushes. CXR reviewed with PICC terminating in brachiocephalic vein with PICC curved at the tip. global compensation analyst notified. Dr Floyd notified with orders for possible PICC placement.
--- NOTE | 2017-11-14 07:50 | NUR ---
RT PATIENT REC'D ORALLY INTUBATED ON [facility] VENT WITH SETTINGS SET BY MD VARUN BHAGAT. VENT ALARMS CHECKED+ AUDIBLE. CUFF PRESSURE CHECKED AERONAUTICAL DRAFTER. SX'D WITH SMALL AMT BISHOP SEMITHICK SECRETIONS. B/S DIM. PATIENT APPEARS COMFORTABLE. AMBU BAG AT HOB. CONT CURRENT PLAN OF RESP CARE. Addendum: 11/14/17 at 1438 by LIZZIE BLANTON RT Amended: Links added.
[2017-11-14] MEDS: LEVOTHYROXINE SODIUM 50 MCG TABLET NG SCH (08:06)
[2017-11-14] MEDS: FAMOTIDINE (20 MG) 20 MG TABLET PO SCH ×2 (08:06→21:19)
[2017-11-14] MEDS: LACTOBACILLUS RHAMNOSUS GG 1 EACH CAP.SPRINK GT SCH ×2 (08:06→16:21)
[2017-11-14] MEDS: HYDROGEL DRESSING 90 GM TUBE TP SCH (08:07)
[2017-11-14] MEDS: Z GUARD REMEDY 2 OZ OINT TP SCH (08:07)
--- NOTE | 2017-11-14 10:00 | NUR ---
ICU/RN: Dr Floyd rounds; pt status and abn labs discussed. Pt scheduled for HD today.
--- NOTE | 2017-11-14 10:05 | NUR ---
ICU/RN: Spoke with Dr Bush regarding drop in H/H. Standing order received to transfuse 1U PRBC if Hgb <7.
--- NOTE | 2017-11-14 11:20 | NUR ---
ICU/RN: Marni, daughter at bedside. Updated on pt status and educated on POC. Pt awake, calm and cooperative. No distress noted. Will cont to monitor
--- NOTE | 2017-11-14 13:00 | NUR ---
ICU/RN: New PICC line inserted JO by CAM Swanson. Pt tolerated well. All ports flushed and patent.
[2017-11-14] MEDS: INSULIN REGULAR, HUMAN 100 UNIT/ML 3 ML VIAL SQ PRN ×3 (13:06→21:21)
[2017-11-14] MEDS ORDERED: Sodium Phosphate 15 MMOL in IV D5W 250 ML IV ONE (14:00)
[2017-11-14] MEDS: ALBUMIN 25% 25 GM in PREMIX 1 EA IV PRN ×2 (14:05→15:10)
--- NOTE | 2017-11-14 14:10 | NUR ---
ICU/RN: Pt noted with drop in SBP to 40-70's mmHg from baseline in low 100's. HD RN Falguni administered Albumin PRN as ordered for BP support. Will monitor closely.
--- NOTE | 2017-11-14 15:30 | NUR ---
ICU/RN: Warm bed bath, wound care rendered. Pt tolerated well. Extremities elevated. Weeping edema noted on R arm. Kept skin clean and dry.
[2017-11-14] MEDS: VANCOMYCIN 500 MG in IV D5W 100 ML IV PRN ×2 (16:22→17:14)
--- NOTE | 2017-11-14 16:30 | NUR ---
ICU/RN: Pt temp 96.1, warm blankets ineffective. Lavon-Hugger applied to maintain pt temp wnl; will closely monitor core temp.
[2017-11-14] MEDS: RENAL NOVASOURCE 1,000 ML BOTTLE GT PRN (17:14)
[2017-11-14] MEDS: Z GUARD REMEDY 2 OZ OINT TP PRN (17:40)
[2017-11-14 17:46] LABS: BASOPHILS % (AUTO) 0.3 % (0.0-2.0); EOSINOPHILS % (AUTO) 0.1 % (0.0-6.0); LYMPHOCYTES # (AUTO) 0.5 /CMM (0.8-4.8); LYMPHOCYTES % (AUTO) 6.7 % (20.0-44.0); MEAN CORPUSCULAR HEMOGLOBIN 31 PG (26.0-33.0); MEAN CORPUSCULAR HGB CONC 34 g/dl (31.0-36.0); MEAN CORPUSCULAR VOLUME 92 fL (82-100); MONOCYTES # (AUTO) 0.1 /CMM (0.1-1.30); MONOCYTES % (AUTO) 1.5 % (2.0-12.0); NEUTROPHILS # (AUTO) 7.5 /CMM (1.8-8.9); NEUTROPHILS % (AUTO) 91.4 % (43.0-81.0); RDW COEFFICIENT OF VARIATION 19.5 (11.5-15.0); RED BLOOD CELL COUNT(AUTO) 2.16 MIL/uL (4.0-5.2); WHITE BLOOD COUNT (AUTO) 8.2 K/uL (4.3-11.0)
[2017-11-14 18:00] LABS: HEMOGLOBIN 6.8 g/dL (11.5-14.8)
[2017-11-14 18:01] LABS: HEMATOCRIT 20 % (33-45); PLATELET COUNT (AUTO) 14 /CMM (150-450)
[2017-11-14 18:26] LABS: BAND % (MANUAL) 45 % (0.0-5.0); LYMPHOCYTES % (MANUAL) 12 % (16-48); MONOCYTES % (MANUAL) 5 % (0-11.0); NEUTROPHILS % (MANUAL) 38 (42-76)
--- NOTE | 2017-11-14 18:56 | NUR ---
ICU/RN: Received call from blood bank, per lab platelets are pending and are waiting to be delivered from [place], 1U PRBC ready. Will endorse transfusion to PM shift for ANA.
--- NOTE | 2017-11-14 19:00 | NUR ---
REMOTE SENSING SPECIALIST NOTES Received patient alert,orally intubated on AC mode.Awake,follows simple commands,able to move both arms,maintained on soft wrist restraints to prevent self extubation.Grimaces to pain,with strong cough and gag.OGT with on going feeding,Aspiration Precaution observed,no residuals .PICC line JO inserted today, HD catheter via right subclavian.Comfort care done,needs attended.Will transfuse 1 unit PRC and 2 units platelet once available. 2039 Started PRBC transfusion. 0 Tolerated 1st hour of tranfusion,no transfusion reaction observed. 2229 Repositioned,back care done.Still tolerating PRBC transfusion well.No S/S of transfusion reaction.
--- NOTE | 2017-11-14 19:06 | NUR ---
ICU/RN: Pt awake, calm, cooperative in bed, breathing even and unlabored on current vent settings. Dressings C/D/I. Pt temp wnl. Care endorsed to PM RN for ANA.
--- NOTE | 2017-11-14 20:27 | NUR ---
PT RECEIVED INTUBATED 7.0 ETT SECURED AT 20CM AT THE LIP. PT IS AWAKE. NO RESP DISTRESS NOTED. TOLERATING VENT SETTINGS. BS CL/DM. SX'D FOR SML AMT OF THIN PALE SECRETIONS. VENT ALARMS SET AND AUDIBLE. AMBU BAG AT [facility]. VENT PLUGGED INTO RED OUTLET. WILL CONTINUE TO MONITOR. Addendum: 11/14/17 at 2027 by NOEMY HOUSTON RT Amended: Links added.
[2017-11-14] MEDS: SIMVASTATIN 10 MG TABLET NG SCH (21:19)
--- NOTE | 2017-11-14 23:00 | NUR ---
HEAD USHER NOTES 2300 Tolerated PRBC infusion with no transfusion reaction noted. 2335 Started 1st unit of platelet transfusion.Patient stable,remains awake,alert. 11/15/27 0059 1st unit platelet transfusion is finished,no reaction noted. 0130 2nd unit of platellet transfusion started,patient remains stable , 0230 Platelet transfusion over,tolerated well.Noted temperature to be dropping to 96.FS =33 mg/dl.PRN D50 IVP given. 0300 AM bath given,BM x1 noted(soft ,yellow) 0343 FS hhroxtrdo=000. 0400 Applied MOLINA HUGGER warmer.Comfort care done . 0500 Sleeps on and off,looks calm and comfortable,NO SOB,No pain.
[2017-11-15] VITALS (51 sets, daily range): BP systolic 98–126; BP diastolic 65–96
[2017-11-15] MEDS: DEXTROSE 50%-WATER 50 ML DISP.SYRIN IV PRN (02:51)
[2017-11-15] MEDS: BLOOD SUGAR DIAGNOSTIC 1 EACH STRIP IN SCH ×6 (02:51→21:11)
[2017-11-15] MEDS: MEROPENEM 500 MG in IV NS 0.9% 50 ML IV SCH ×2 (03:49→16:18)
[2017-11-15 05:22] LABS: BASOPHILS # (AUTO) 0.1 /CMM (0.0-0.2); BASOPHILS % (AUTO) 0.7 % (0.0-2.0); EOSINOPHILS % (AUTO) 0.2 % (0.0-6.0); HEMATOCRIT 24 % (33-45); HEMOGLOBIN 8.3 g/dL (11.5-14.8); LYMPHOCYTES # (AUTO) 0.5 /CMM (0.8-4.8); LYMPHOCYTES % (AUTO) 5.4 % (20.0-44.0); MEAN CORPUSCULAR HEMOGLOBIN 31 PG (26.0-33.0); MEAN CORPUSCULAR HGB CONC 35 g/dl (31.0-36.0); MEAN CORPUSCULAR VOLUME 89 fL (82-100); MONOCYTES % (AUTO) 0.2 % (2.0-12.0); NEUTROPHILS # (AUTO) 8.1 /CMM (1.8-8.9); NEUTROPHILS % (AUTO) 93.5 % (43.0-81.0); PLATELET COUNT (AUTO) 95 /CMM (150-450); RED BLOOD CELL COUNT(AUTO) 2.66 MIL/uL (4.0-5.2); WHITE BLOOD COUNT (AUTO) 8.6 K/uL (4.3-11.0)
[2017-11-15 05:45] LABS: CALCIUM, SERUM 8.5 mg/dL (8.5-10.1); CREATININE 1.8 mg/dL (0.6-1.3); PHOSPHORUS 3.9 mg/dL (2.5-4.9); POTASSIUM 3.3 mmol/L (3.5-5.1)
[2017-11-15 05:58] LABS: BAND % (MANUAL) 6 % (0.0-5.0); LYMPHOCYTES % (MANUAL) 6 % (16-48); MONOCYTES % (MANUAL) 1 % (0-11.0); NEUTROPHILS % (MANUAL) 87 (42-76)
--- NOTE | 2017-11-15 07:30 | NUR ---
ICU/RN: Pt received intubated, awake, alert, follows simple commands in [place], able to communicate some needs via automotive service professional. C/O mild discomfort alleviated with repostioning.Tolerating TF with no residual noted. Lavon Hugger removed; pt temp >97.0, applied warm blanket. JO PICC patent, flushed with good blood return. Dressings C/D/I. HOB elevated per aspiration precautions. Alarm sounds audible, will cont to monitor pt.
[2017-11-15] MEDS: HYDROGEL DRESSING 90 GM TUBE TP SCH (08:08)
[2017-11-15] MEDS: Z GUARD REMEDY 2 OZ OINT TP SCH (08:08)
[2017-11-15] MEDS: LACTOBACILLUS RHAMNOSUS GG 1 EACH CAP.SPRINK GT SCH ×2 (08:08→16:18)
[2017-11-15] MEDS: FAMOTIDINE (20 MG) 20 MG TABLET PO SCH ×2 (08:08→21:11)
[2017-11-15] MEDS: LEVOTHYROXINE SODIUM 50 MCG TABLET NG SCH (08:08)
--- NOTE | 2017-11-15 09:15 | NUR ---
ICU/RN: Dr Rui lieberman; updated on pt status. S/P transfusion of 1U PRBC and 2 units platelets ordered by Dr Bush, abn labs and current respiratory status DW . New orders noted and carried out.
[2017-11-15 09:35] LABS: ABG BASE EXCESS -0.2 mmol/L; ABG OXYGEN SATURATION 89.4 % (92.0-98.5); ABG PCO2 35.4 mmHg (35.0-45.0); ABG PH 7.442 (7.350-7.450); ABG PO2 58.1 mmHg (75.0-100.0); AaDO2 150.3 mmHg; MetHb 0.7 % (0.0-1.5); O2Hb 88.8 % (94.0-97.0); PEEP,BG 5 cm H2O; SITE, ABG Right Radial; VENT MODE, BG AC 24 400 35% +5; VT, ABG 400 mL
[2017-11-15] MEDS ORDERED: EPOETIN ALFA (10,000 UNIT) 10,000 UNIT/ML VIAL SQ ONE (10:00)
--- NOTE | 2017-11-15 10:00 | NUR ---
ICU/RN: AM care and bed bath rendered. Pt with large amount of soft yellow stool. Wound care rendered. Turned and repositioned for comfort.
--- NOTE | 2017-11-15 11:30 | NUR ---
ICU/RN: Marni, daughter at bedside. Informed RN that pt was recently "treated for autoimmune disease at [facility]," however can't remember any other details. Updated on pt status and wishes to keep pt full code.
[2017-11-15] MEDS: INSULIN REGULAR, HUMAN 100 UNIT/ML 3 ML VIAL SQ PRN (12:22)
--- NOTE | 2017-11-15 14:00 | NUR ---
ICU/RN: F/U with Dr Fabian regarding electrolyte replacement, per MD, no need to replace K today
[2017-11-15] MEDS: RENAL NOVASOURCE 1,000 ML BOTTLE GT PRN (16:18)
[2017-11-15 17:28] LABS: BASOPHILS # (AUTO) 0.1 /CMM (0.0-0.2); EOSINOPHILS % (AUTO) 0.2 % (0.0-6.0); HEMATOCRIT 25 % (33-45); HEMOGLOBIN 8.7 g/dL (11.5-14.8); LYMPHOCYTES # (AUTO) 0.6 /CMM (0.8-4.8); LYMPHOCYTES % (AUTO) 7.4 % (20.0-44.0); MEAN CORPUSCULAR HEMOGLOBIN 31 PG (26.0-33.0); MEAN CORPUSCULAR HGB CONC 35 g/dl (31.0-36.0); MEAN CORPUSCULAR VOLUME 90 fL (82-100); MONOCYTES # (AUTO) 0.1 /CMM (0.1-1.30); MONOCYTES % (AUTO) 1.4 % (2.0-12.0); NEUTROPHILS # (AUTO) 7.1 /CMM (1.8-8.9); WHITE BLOOD COUNT (AUTO) 7.9 K/uL (4.3-11.0)
[2017-11-15 17:42] LABS: PLATELET COUNT (AUTO) 45 /CMM (150-450)
[2017-11-15 18:12] LABS: BAND % (MANUAL) 38 % (0.0-5.0); LYMPHOCYTES % (MANUAL) 7 % (16-48); MONOCYTES % (MANUAL) 4 % (0-11.0); NEUTROPHILS % (MANUAL) 51 (42-76)
--- NOTE | 2017-11-15 18:54 | NUR ---
PT SELF-EXTUBATED. RE-INTUBATED BY DR. LIANG FROM ER. PT RE-INTUBATED WITH A 7.0 ETT AT 20 CM AT THE LIP. THE PATIENT WAS PREVIOUSLY INTUBATED WITH THE SAME SIZE AND LIP LINE BEFORE SELF EXTUBATING. VENT SETTINGS THE SAME. POSITIVE COLOR CHANGE ON CAP. BILAT. B/S AUSCULTATED BY ER VENT PLUGGED INTO RED OUTLET. AMBU BAG AT [facility].
--- NOTE | 2017-11-15 19:15 | NUR ---
ICU/RN: Pt s/p reintubation by Dr Schulte; bilat breath sounds present, SPO2>92; set to previous vent settings. CXR taken, pending. New OGT inserted. VSS; bedside report given to PM RN for ANA.
--- NOTE | 2017-11-15 19:20 | NUR ---
DOCUMENT MANAGEMENT TECHNICIAN INITIAL NOTE RECEIVED REPORT FROM BONILLA LEVY. PT SELF EXTUBATED AT 1840. PT REINTUBATED AT 1855 BY ER MD, DR LIANG. RECEIVED PT IN BED, SEDATED, INTUBATED 7.0, 20 LIP. VENT SETTINGS AC 24, TV 400, FIO2 50, PEEP 8. LUNG SOUNDS COARSE. BOWEL SOUNDS PRESENT. NEW OG TUBE PLACED. PT IS ANURIC. INCONTINENT TO STOOL. BILATERAL WRIST RESTRAINTS INTACT. IV PATENT AND INTACT. PULSES PRESENT. REPOSITIONED FOR COMFORT. WILL CONTINUE TO MONITOR.
--- NOTE | 2017-11-15 19:45 | NUR ---
DISPLAY DEPARTMENT MANAGER OG PLACEMENT VERIFIED IN CXR. NO RESIDUAL NOTED. RESTARTED THE FEEDING. WILL CONTINUE TO MONITOR.
[2017-11-15] MEDS: SIMVASTATIN 10 MG TABLET NG SCH (21:11)
[2017-11-16] VITALS (63 sets, daily range): BP systolic 106–132; BP diastolic 74–94
[2017-11-16] MEDS: BLOOD SUGAR DIAGNOSTIC 1 EACH STRIP IN SCH ×6 (01:03→21:21)
[2017-11-16] MEDS: MEROPENEM 500 MG in IV NS 0.9% 50 ML IV SCH ×2 (04:06→17:20)
[2017-11-16] MEDS: INSULIN REGULAR, HUMAN 100 UNIT/ML 3 ML VIAL SQ PRN ×3 (04:09→21:30)
--- NOTE | 2017-11-16 04:23 | NUR ---
PATIENT RECEIVED ON [facility] VENT WITH SETTINGS ORDERED BY VARUN JEFFRIES. VENT ALARMS CHECKED & AUDIBLE THROUGH OUT ICU UNIT. CUFF PRESSURE CHECKED EXHIBITIONS AND COLLECTIONS MANAGER. PT SUCTIONED Q2 & PRN FOR MOD AMOUNT OF SEMITHICK SECRETIONS. B/S DIMINISHED. PATIENT APPEARS COMFORTABLE. AMBU BAG AT [facility]. MECHANICAL VENTILATOR PLUGGED INTO RED OUTLET. WILL CONTINUE TO MONITOR. Addendum: 11/16/17 at 0427 by BREANNA CORDOVA RT Amended: Links added.
[2017-11-16 04:53] LABS: BASOPHILS % (AUTO) 0.2 % (0.0-2.0); EOSINOPHILS % (AUTO) 0.3 % (0.0-6.0); HEMATOCRIT 27 % (33-45); HEMOGLOBIN 9.2 g/dL (11.5-14.8); LYMPHOCYTES # (AUTO) 0.7 /CMM (0.8-4.8); LYMPHOCYTES % (AUTO) 6.6 % (20.0-44.0); MEAN CORPUSCULAR HEMOGLOBIN 31 PG (26.0-33.0); MEAN CORPUSCULAR HGB CONC 34 g/dl (31.0-36.0); MEAN CORPUSCULAR VOLUME 91 fL (82-100); MONOCYTES # (AUTO) 0.2 /CMM (0.1-1.30); MONOCYTES % (AUTO) 1.6 % (2.0-12.0); NEUTROPHILS # (AUTO) 9.9 /CMM (1.8-8.9); NEUTROPHILS % (AUTO) 91.3 % (43.0-81.0); RDW COEFFICIENT OF VARIATION 17.5 (11.5-15.0); RED BLOOD CELL COUNT(AUTO) 2.96 MIL/uL (4.0-5.2); WHITE BLOOD COUNT (AUTO) 10.8 K/uL (4.3-11.0)
[2017-11-16 05:10] LABS: CALCIUM, SERUM 8.5 mg/dL (8.5-10.1); CREATININE 2.1 mg/dL (0.6-1.3); MAGNESIUM 2.2 mg/dL (1.8-2.4); PHOSPHORUS 4.3 mg/dL (2.5-4.9); POTASSIUM 3.5 mmol/L (3.5-5.1)
[2017-11-16 05:35] LABS: PLATELET COUNT (AUTO) 38 /CMM (150-450)
--- NOTE | 2017-11-16 07:00 | NUR ---
icu initial note received report from obi heath, pt was received, asleep, able to wake up to name and tactile stimuli, pt is intubated, ett 7.0/20 lip ac 24 tv 400 fio2 35% peep8, sating well, no s/s of resp.distress or sob noted at this time, pt is on bedside monitor showing sr @80's, no s/s of chest pain or discomfort at this time, pt has ogt, running novasource@35ml/hr, flushing well, no residuals noted at this time, pt is anuric, pt has iram picc line, running tko @5ml/hr, c/d/i/patent,flushing well, no s/s/s of infection/ infiltration noted at this time, rcw hd, dressing intact/clean, pt is noted with skin issues, wound treatments ack and will be carried out, pt has bilateral wrist restraints, in place for pt safety, released, skin checked done, passive rom completed, all safety measures in place at all times, call light within easy reach, will monitor pt closely for changes
[2017-11-16] MEDS: LEVOTHYROXINE SODIUM 50 MCG TABLET NG SCH (09:18)
[2017-11-16] MEDS: LACTOBACILLUS RHAMNOSUS GG 1 EACH CAP.SPRINK GT SCH ×2 (09:18→17:20)
[2017-11-16] MEDS: VIT B CMPLX 3/FA/VIT C/BIOTIN 1 TAB TABLET PO SCH (09:18)
[2017-11-16] MEDS: FAMOTIDINE (20 MG) 20 MG TABLET PO SCH ×2 (09:18→21:06)
[2017-11-16] MEDS: Z GUARD REMEDY 2 OZ OINT TP SCH (09:19)
[2017-11-16] MEDS: HYDROGEL DRESSING 90 GM TUBE TP SCH (09:19)
[2017-11-16 09:30] LABS: BAND % (MANUAL) 7 % (0.0-5.0); EOSINOPHILS % (MANUAL) 1 % (0-4); LYMPHOCYTES % (MANUAL) 5 % (16-48); MONOCYTES % (MANUAL) 1 % (0-11.0); NEUTROPHILS % (MANUAL) 86 (42-76)
[2017-11-16] MEDS ORDERED: IV NS 0.9% 250 ML IV PRN (11:00)
[2017-11-16] MEDS: RENAL NOVASOURCE 1,000 ML BOTTLE GT PRN (11:43)
--- NOTE | 2017-11-16 11:45 | NUR ---
icu note- daughter yonatan at bedside, updated on pt condition, answered all questions and concerns
[2017-11-16] MEDS ORDERED: ETOMIDATE 2 MG/ML VIAL IV ONE (14:33)
[2017-11-16] MEDS ORDERED: ROCURONIUM BROMIDE 50 MG/5 ML IV ONE (14:33)
--- NOTE | 2017-11-16 15:15 | NUR ---
icu note- pt currently receiving hd at this time
[2017-11-16] MEDS: ALBUMIN 25% 25 GM in PREMIX 1 EA IV PRN (15:29)
[2017-11-16 17:10] LABS: BASOPHILS # (AUTO) 0.1 /CMM (0.0-0.2); BASOPHILS % (AUTO) 0.9 % (0.0-2.0); EOSINOPHILS % (AUTO) 0.2 % (0.0-6.0); HEMATOCRIT 24 % (33-45); HEMOGLOBIN 8.1 g/dL (11.5-14.8); LYMPHOCYTES # (AUTO) 0.4 /CMM (0.8-4.8); LYMPHOCYTES % (AUTO) 4.6 % (20.0-44.0); MEAN CORPUSCULAR HEMOGLOBIN 31 PG (26.0-33.0); MEAN CORPUSCULAR HGB CONC 34 g/dl (31.0-36.0); MEAN CORPUSCULAR VOLUME 90 fL (82-100); MONOCYTES # (AUTO) 0.2 /CMM (0.1-1.30); MONOCYTES % (AUTO) 2.3 % (2.0-12.0); NEUTROPHILS # (AUTO) 7.6 /CMM (1.8-8.9); RDW COEFFICIENT OF VARIATION 18.2 (11.5-15.0); RED BLOOD CELL COUNT(AUTO) 2.62 MIL/uL (4.0-5.2); WHITE BLOOD COUNT (AUTO) 8.2 K/uL (4.3-11.0)
[2017-11-16 17:16] LABS: PLATELET COUNT (AUTO) 21 /CMM (150-450)
--- NOTE | 2017-11-16 17:37 | NUR ---
icu note- hd complete 500ml removed, vvs
[2017-11-16 17:46] LABS: LYMPHOCYTES % (MANUAL) 5 % (16-48); MONOCYTES % (MANUAL) 10 % (0-11.0); NEUTROPHILS % (MANUAL) 85 (42-76)
--- NOTE | 2017-11-16 19:25 | NUR ---
RN NOTES RECEIVED PT AWAKE OFF FOR SEDATION MOVING WHILE ON BED AOX 1 CONFUSED. RESTRAINT KEPT ON FOR SAFETY. NO ACUTE RESP DISTRESS TOLERATED ETT 05/10 @ LIP CONNECTED TO VENT SETTUNG AC 24 TV 400 FIO2 40% PEEP 5 SATING 98%. WITH OGTF NOVASOURCE @ 35 CC/HR INTACT AND PATENCY CHECKED. WITH ZERO RESIDUAL. IV SITE ON LEFT UPPER ARM PICC LINE RCW LICO CATH REMAINED INTACT AND PATENT. KEPT PT CLEAN AND COMFORTABLE IN BED. WILL CONTINUE TO MONITOR.
[2017-11-16] MEDS: SIMVASTATIN 10 MG TABLET NG SCH (21:06)
[2017-11-17] VITALS (39 sets, daily range): BP systolic 110–140; BP diastolic 61–95
[2017-11-17] MEDS: BLOOD SUGAR DIAGNOSTIC 1 EACH STRIP IN SCH ×6 (01:00→21:34)
[2017-11-17] MEDS: INSULIN REGULAR, HUMAN 100 UNIT/ML 3 ML VIAL SQ PRN ×4 (01:00→21:33)
[2017-11-17] MEDS: MEROPENEM 500 MG in IV NS 0.9% 50 ML IV SCH ×2 (04:56→16:32)
[2017-11-17 05:35] LABS: CALCIUM, SERUM 8.4 mg/dL (8.5-10.1); CREATININE 1.9 mg/dL (0.6-1.3); POTASSIUM 3.9 mmol/L (3.5-5.1)
[2017-11-17 05:37] LABS: NEUTROPHILS # (AUTO) 8.3 /CMM (1.8-8.9)
[2017-11-17 05:51] LABS: HEMATOCRIT 24 % (33-45); HEMOGLOBIN 8.5 g/dL (11.5-14.8); MEAN CORPUSCULAR HEMOGLOBIN 32 PG (26.0-33.0); MEAN CORPUSCULAR HGB CONC 35 g/dl (31.0-36.0); MEAN CORPUSCULAR VOLUME 90 fL (82-100); RDW COEFFICIENT OF VARIATION 17.8 (11.5-15.0); WHITE BLOOD COUNT (AUTO) 8.9 K/uL (4.3-11.0)
[2017-11-17 05:52] LABS: BASOPHILS % (AUTO) 0.1 % (0.0-2.0); EOSINOPHILS % (AUTO) 0.3 % (0.0-6.0); LYMPHOCYTES # (AUTO) 0.5 /CMM (0.8-4.8); LYMPHOCYTES % (AUTO) 5.8 % (20.0-44.0); MONOCYTES # (AUTO) 0.1 /CMM (0.1-1.30); MONOCYTES % (AUTO) 1.3 % (2.0-12.0); NEUTROPHILS % (AUTO) 92.5 % (43.0-81.0); PLATELET COUNT (AUTO) 21 /CMM (150-450)
[2017-11-17 06:02] LABS: BAND % (MANUAL) 8 % (0.0-5.0); LYMPHOCYTES % (MANUAL) 13 % (16-48); MONOCYTES % (MANUAL) 4 % (0-11.0); NEUTROPHILS % (MANUAL) 75 (42-76)
--- NOTE | 2017-11-17 06:08 | NUR ---
PATIENT RECEIVED ON [facility] VENT WITH SETTINGS ORDERED BY MD VARUN WELL. VENT ALARMS CHECKED & AUDIBLE THROUGH OUT ICU UNIT. CUFF PRESSURE CHECKED HEALTH INFORMATION TECHNOLOGIST. PT SUCTIONED FOR MOD AMOUNT OF SECRETIONS. B/S DIMINISHED. PATIENT APPEARS COMFORTABLE. [facility] BAG AT [facility]. MECHANICAL VENTILATOR PLUGGED INTO RED OUTLET. WILL CONTINUE TO MONITOR.
--- NOTE | 2017-11-17 06:53 | NUR ---
RN NOTES PATIENT REMAINED IN STABLE CONDITION TOLERATED ETT AND VENT SETTING ORDERED. NO SIGNIFICANT CHANGES SHOWS NO HYPO OR HYPERGLYCEMIA NOTED. AFEBRILE. INCONTINENT CARE RENDERED. NO ACUTE RESP DISTRESS. KEPT PT CLEAN AND DRY LATEST PLATELET IS 21. NO NEED FOR TRANSFUSION AT THIS TIME. KEPT PT CLEAN AND DRY. WILL ENDORSED CONTINUITY OF CARE TO AM NURSE.
--- NOTE | 2017-11-17 07:18 | NUR ---
Pt received on mechanical vent. 7.0 ETT secured at 20cm at the lip. Vent is plugged into a red outlet, alarms are set and audible, and BVM is at bedside. Addendum: 11/17/17 at 0808 by PETRA RIZO RT Amended: Links added.
--- NOTE | 2017-11-17 08:00 | NUR ---
ICU/RN PT IS INTUBATED ON THE VENT AC MODE.FIO2-40%.SAT O2-100%.V/S STABLE,AFEBRILE.NO PAIN REPORTED AT THIS TIME.PT IS AWAKE.MOVING UPPER EXTREMITIES,BILATERAL SOFT WRIST RESTRAINS ON.OG-TUBE INFUSING WITH RENAL NOVASOURCE AT 35 ML/HR.NO RESIDUAL NOTED.PT IS ANURIC ON HD.SUCTION PROVIDED.REPOSITION FOR COMFORT.
[2017-11-17] MEDS: LACTOBACILLUS RHAMNOSUS GG 1 EACH CAP.SPRINK GT SCH ×2 (08:06→16:32)
[2017-11-17] MEDS: FAMOTIDINE (20 MG) 20 MG TABLET PO SCH ×2 (08:06→21:24)
[2017-11-17] MEDS: LEVOTHYROXINE SODIUM 50 MCG TABLET NG SCH (08:06)
[2017-11-17] MEDS: VIT B CMPLX 3/FA/VIT C/BIOTIN 1 TAB TABLET PO SCH (08:06)
[2017-11-17] MEDS: HYDROGEL DRESSING 90 GM TUBE TP SCH (08:07)
[2017-11-17] MEDS: Z GUARD REMEDY 2 OZ OINT TP SCH (08:08)
[2017-11-17 08:30] LABS: ABG BASE EXCESS 0.5 mmol/L; ABG OXYGEN SATURATION 95.7 % (92.0-98.5); ABG PH 7.476 (7.350-7.450); ABG PO2 92.2 mmHg (75.0-100.0); AaDO2 155.1 mmHg; COHb 0.3 % (0.5-1.5); MetHb 0.4 % (0.0-1.5); PEEP,BG 5 cm H2O; SITE, ABG Right Radial; VENT MODE, BG AC 24 400 40% +5; VT, ABG 400 mL
--- NOTE | 2017-11-17 09:00 | NUR ---
ICU/RN DUE MEDS ARE GIVEN ORDERED.REPOSITION FOR COMFORT.
[2017-11-17] MEDS: RENAL NOVASOURCE 1,000 ML BOTTLE GT PRN (13:38)
[2017-11-17 18:00] LABS: BASOPHILS % (AUTO) 0.4 % (0.0-2.0); EOSINOPHILS % (AUTO) 0.2 % (0.0-6.0); HEMATOCRIT 27 % (33-45); LYMPHOCYTES # (AUTO) 0.5 /CMM (0.8-4.8); LYMPHOCYTES % (AUTO) 4.7 % (20.0-44.0); MEAN CORPUSCULAR HEMOGLOBIN 31 PG (26.0-33.0); MEAN CORPUSCULAR HGB CONC 34 g/dl (31.0-36.0); MEAN CORPUSCULAR VOLUME 91 fL (82-100); MONOCYTES # (AUTO) 0.4 /CMM (0.1-1.30); MONOCYTES % (AUTO) 3.3 % (2.0-12.0); NEUTROPHILS # (AUTO) 9.9 /CMM (1.8-8.9); NEUTROPHILS % (AUTO) 91.4 % (43.0-81.0); RDW COEFFICIENT OF VARIATION 17.7 (11.5-15.0); RED BLOOD CELL COUNT(AUTO) 2.93 MIL/uL (4.0-5.2); WHITE BLOOD COUNT (AUTO) 10.8 K/uL (4.3-11.0)
[2017-11-17 19:00] LABS: PLATELET COUNT (AUTO) 24 /CMM (150-450)
[2017-11-17 19:55] LABS: BAND % (MANUAL) 5 % (0.0-5.0); EOSINOPHILS % (MANUAL) 1 % (0-4); LYMPHOCYTES % (MANUAL) 5 % (16-48); MONOCYTES % (MANUAL) 10 % (0-11.0); NEUTROPHILS % (MANUAL) 79 (42-76)
--- NOTE | 2017-11-17 20:00 | NUR ---
SKIP LOADER NOTES RECEIVED PTS AWAKE REMAINS INTUBATED WITH 7.0 ETT SECURED AT 20CM AT THE LIPS ON VENT AC SETTING WELL TOLERATED ORDERED , V/S STABLE AND AFEBRILE NO SOB NO DISTRESS NOTED SATING 99%.HOB ELEVATED FOR ASPIRATION PRECAUTION , SUCTION SECRETION DONE AND PRN, ON CONTACT ISOLATION ESBL AND ECOLI URINE AND BLOOD , PRECAUTIONARY MEASURES OBSERVED ALL THE TIME.WITH NGT FEEDING OF NOVASOURCE AT 30CC/HR WELL TOLERATED NO RESIDUAL NOTED. ALL NEEDS ATTENDED TOO , TURN AND REPOSITION KEPT PTS CLEAN DRY AND COMORTABLE.WILL CONITNUE TO MONITOR PTS
[2017-11-17] MEDS: SIMVASTATIN 10 MG TABLET NG SCH (21:24)
--- NOTE | 2017-11-17 21:37 | NUR ---
LUBE MAN NOTES BLOOD SUGAR FOR 9PM IS 201MG/DL-4 UNITS OF REGULAR INSULIN GIVEN PER SLIDING SCALE , PTS ON NG FEEDING WELL TOLERATED
[2017-11-18] VITALS (49 sets, daily range): BP systolic 93–127; BP diastolic 66–90
--- NOTE | 2017-11-18 01:00 | NUR ---
CLAM DREDGER NOTES BLOOD SUGAR FOR 1AM IS 136 MG/DL 2 UNITS OF REGULAR INSULIN GIVEN PER SLIDING SCALE
[2017-11-18] MEDS: BLOOD SUGAR DIAGNOSTIC 1 EACH STRIP IN SCH ×6 (01:30→21:03)
[2017-11-18] MEDS: INSULIN REGULAR, HUMAN 100 UNIT/ML 3 ML VIAL SQ PRN ×4 (01:33→21:05)
[2017-11-18] MEDS: MEROPENEM 500 MG in IV NS 0.9% 50 ML IV SCH ×2 (03:28→18:07)
--- NOTE | 2017-11-18 04:33 | NUR ---
RT NOTES PATIENT RECEIVED ON [facility] VENT NOTED SETTINGS ORDERED BY . VENT VARUN WELL. VENT ALARMS CHECKED & AUDIBLE THROUGH OUT ICU UNIT. CUFF PRESSURE CHECKED BIOFUELS PROCESSING TECHNICIAN. SUCTIONED Q2 & PRN FOR MOD AMOUNT OF SEMI THICK SECRETIONS. B/S DIMINISHED BILAT. PATIENT APPEARS COMFORTABLE. AMBU BAG AT [facility]. MECHANICAL VENTILATOR PLUGGED INTO RED OUTLET. WILL CONTINUE TO MONITOR. Addendum: 11/18/17 at 0434 by IVÁN HANSEN RT Amended: Links added.
--- NOTE | 2017-11-18 04:45 | NUR ---
FUR DESIGNER NOTES BLOOD SUGAR FOR 5AM IS 83-MG/DL =ZERO COVERAGE PER SLIDING SCALE
[2017-11-18 04:56] LABS: BASOPHILS % (AUTO) 0.3 % (0.0-2.0); EOSINOPHILS # (AUTO) 0.1 /CMM (0.0-0.7); EOSINOPHILS % (AUTO) 0.7 % (0.0-6.0); HEMATOCRIT 25 % (33-45); HEMOGLOBIN 8.4 g/dL (11.5-14.8); LYMPHOCYTES # (AUTO) 0.5 /CMM (0.8-4.8); LYMPHOCYTES % (AUTO) 5.4 % (20.0-44.0); MEAN CORPUSCULAR HEMOGLOBIN 31 PG (26.0-33.0); MEAN CORPUSCULAR HGB CONC 33 g/dl (31.0-36.0); MEAN CORPUSCULAR VOLUME 92 fL (82-100); MONOCYTES # (AUTO) 0.1 /CMM (0.1-1.30); MONOCYTES % (AUTO) 1.5 % (2.0-12.0); NEUTROPHILS # (AUTO) 9.2 /CMM (1.8-8.9); NEUTROPHILS % (AUTO) 92.1 % (43.0-81.0); RDW COEFFICIENT OF VARIATION 17.6 (11.5-15.0); RED BLOOD CELL COUNT(AUTO) 2.71 MIL/uL (4.0-5.2)
[2017-11-18 05:09] LABS: CALCIUM, SERUM 8.7 mg/dL (8.5-10.1); CREATININE 2.2 mg/dL (0.6-1.3); MAGNESIUM 2.1 mg/dL (1.8-2.4); POTASSIUM 3.6 mmol/L (3.5-5.1)
[2017-11-18 05:34] LABS: PLATELET COUNT (AUTO) 27 /CMM (150-450)
[2017-11-18 05:41] LABS: BAND % (MANUAL) 6 % (0.0-5.0); LYMPHOCYTES % (MANUAL) 6 % (16-48); MONOCYTES % (MANUAL) 2 % (0-11.0); NEUTROPHILS % (MANUAL) 86 (42-76)
--- NOTE | 2017-11-18 06:45 | NUR ---
LICENSED CLINICAL SOCIAL WORKER NOTES PTS REMAINS ON VENT SETTINGS WELL TOLERATED. NO SIGNIFICANT CHANGE NOTED WILL ENDORSE TO RN DAY SHIFT FOR CONTINUITY OF CARE, LATEST PLATELETS =27 BUN=97 .
--- NOTE | 2017-11-18 07:35 | NUR ---
ACCOUNT SERVICES SPECIALIST RECEIVED PATIENT FROM THE PREVIOUS SHIFT. PATIENT IS IN BED. RESTING COMFORTABLY. OFF SEDATION. AFEBRILE. STABLE VITAL SINGS. NO ACTIVE BLEEDING NOTED. VENT SETTINGS REVIEWED AND VERIFIED. TURNED AND REPOSITIONED FOR COMFORT AND WOUND PREVENTION. WILL CONTINUE TO MONITOR AND PROVIDE CARE.
--- NOTE | 2017-11-18 07:38 | NUR ---
RT PATIENT REC'D ORALLY INTUBATED ON [facility] VENT WITH SETTINGS SET BY MD VARUN BHAGAT. VENT ALARMS CHECKED+ AUDIBLE. CUFF PRESSURE CHECKED LEVER OPERATOR. SX'D WITH SMALL AMT BISHOP SEMITHICK SECRETIONS. B/S DIM. PATIENT APPEARS COMFORTABLE. AMBU BAG AT HOB. CONT CURRENT PLAN OF RESP CARE. Addendum: 11/18/17 at 1353 by LIZZIE BLANTON RT Amended: Links added.
[2017-11-18] MEDS: HYDROGEL DRESSING 90 GM TUBE TP SCH (08:20)
[2017-11-18] MEDS: Z GUARD REMEDY 2 OZ OINT TP SCH (08:20)
[2017-11-18] MEDS: VIT B CMPLX 3/FA/VIT C/BIOTIN 1 TAB TABLET PO SCH (08:25)
[2017-11-18] MEDS: LEVOTHYROXINE SODIUM 50 MCG TABLET NG SCH (08:25)
[2017-11-18] MEDS: LACTOBACILLUS RHAMNOSUS GG 1 EACH CAP.SPRINK GT SCH ×2 (08:25→18:07)
[2017-11-18] MEDS: FAMOTIDINE (20 MG) 20 MG TABLET PO SCH ×2 (08:25→21:01)
--- NOTE | 2017-11-18 08:30 | NUR ---
AUTOMOTIVE COLLISION REPAIR INSTRUCTOR PATIENT IS OFF SEDATION. PATIENT RESPONDS TO MODERATE PAINFUL STIMULI. UNABLE TO FOLLOW ANY COMMANDS. GENERALIZED WEAKNESS NOTED. AFEBRILE.
[2017-11-18] MEDS ORDERED: EPOETIN ALFA (10,000 UNIT) 10,000 UNIT/ML VIAL SQ ONE (09:00)
[2017-11-18] MEDS: ALBUMIN 25% 25 GM in PREMIX 1 EA IV PRN (11:06)
--- NOTE | 2017-11-18 19:30 | NUR ---
RN POST PARTUM INITIAL NOTES RECEIVED PATIENT NON-VERBAL, VENT DEPENDENT, AROUSABLE, RESPONDS TO NAME. ABLE TO NOD YES OR NO TO SIMPLE QUESTIONS. NODS YES TO PAIN. NO RESPIRATORY DISTRESS NOTED. ETT 7CM, 20 AT THE LIP WITH VENT SETTINGS AC 24, TV 400, FIO2 40%, PEEP 5, SPO2 100%. WITH OGT PATENT AND INTACT, IN PLACE. NOVASOURCE AT 30ML/HR, TOLERATING WELL. ON TELE MONITOR SR 82. JO PICC LINE PATENT AND INTACT, TKO. RCW HD CATH IN PLACE. ISOLATION PRECAUTIONS OBSERVED. HOB ELEVATED. SIDE RAILS UP AND LOCKED. BED KEPT AT LOWEST POSITION. BILATERAL WRIST SOFT RESTRAINTS IN PLACE. CIRCULATION CHECKED. WILL CONTINUE TO MONITOR.
[2017-11-18] MEDS: SIMVASTATIN 10 MG TABLET NG SCH (21:01)
[2017-11-18] MEDS: ACETAMINOPHEN 325 MG TABLET PO PRN (21:01)
[2017-11-19] VITALS (42 sets, daily range): BP systolic 105–127; BP diastolic 67–88
--- NOTE | 2017-11-19 | NUR ---
7767 RECEIVED REPORT FROM CAM ARNOLD FOR NAA.PATIENT RESTING NO APPARENT DISTRESS NOTED.INTUBATED TO VENT ON SIMV MODE.VS STABLE.OGT FEEDING WELL TOLERATED.ANURIC .HD CATH TO R SVC INTACT.NS AT TKO INFUSING TO JO PICC .SITE INTACT.PATIENT INCONTINENT OF LOOSE STOOLS.PERINEAL CARE AND BED BATH RENDERED.COMPLETE LINENS CHANGED TURNED AND REPOSITIONED.CONTINUE MONITORING.
[2017-11-19] MEDS: BLOOD SUGAR DIAGNOSTIC 1 EACH STRIP IN SCH ×6 (00:37→20:41)
[2017-11-19] MEDS: INSULIN REGULAR, HUMAN 100 UNIT/ML 3 ML VIAL SQ PRN ×3 (00:38→08:16)
[2017-11-19] MEDS: RENAL NOVASOURCE 1,000 ML BOTTLE GT PRN (03:09)
[2017-11-19] MEDS: MEROPENEM 500 MG in IV NS 0.9% 50 ML IV SCH ×2 (04:37→16:21)
[2017-11-19 05:22] LABS: BASOPHILS % (AUTO) 0.1 % (0.0-2.0); EOSINOPHILS # (AUTO) 0.1 /CMM (0.0-0.7); EOSINOPHILS % (AUTO) 0.8 % (0.0-6.0); HEMATOCRIT 25 % (33-45); HEMOGLOBIN 8.3 g/dL (11.5-14.8); LYMPHOCYTES # (AUTO) 0.6 /CMM (0.8-4.8); LYMPHOCYTES % (AUTO) 7.4 % (20.0-44.0); MEAN CORPUSCULAR HEMOGLOBIN 31 PG (26.0-33.0); MEAN CORPUSCULAR HGB CONC 34 g/dl (31.0-36.0); MEAN CORPUSCULAR VOLUME 93 fL (82-100); MONOCYTES # (AUTO) 0.3 /CMM (0.1-1.30); MONOCYTES % (AUTO) 3.7 % (2.0-12.0); NEUTROPHILS # (AUTO) 6.6 /CMM (1.8-8.9); RDW COEFFICIENT OF VARIATION 18.2 (11.5-15.0); RED BLOOD CELL COUNT(AUTO) 2.65 MIL/uL (4.0-5.2); WHITE BLOOD COUNT (AUTO) 7.4 K/uL (4.3-11.0)
[2017-11-19 05:33] LABS: CALCIUM, SERUM 8.6 mg/dL (8.5-10.1); MAGNESIUM 2.1 mg/dL (1.8-2.4); PHOSPHORUS 3.4 mg/dL (2.5-4.9); POTASSIUM 3.5 mmol/L (3.5-5.1)
[2017-11-19 05:48] LABS: PLATELET COUNT (AUTO) 28 /CMM (150-450)
[2017-11-19 06:29] LABS: BAND % (MANUAL) 3 % (0.0-5.0); NEUTROPHILS % (MANUAL) 88 (42-76)
[2017-11-19 06:30] LABS: LYMPHOCYTES % (MANUAL) 4 % (16-48); MONOCYTES % (MANUAL) 5 % (0-11.0)
--- NOTE | 2017-11-19 06:51 | NUR ---
WAXER FLOOR CLOSING NOTES NO SIGNIFICANT CHANGES OVERNIGHT. NO RESPIRATORY DISTRESS NOTED. TOLERATING CURRENT VENT SETTINGS. TOLERATING GTF. BILATERAL SOFT WRIST RESTRAINTS IN PLACE, CIRCULATION CHECKED FREQUENTLY. KEPT CLEAN AND DRY. WOUND TX PROVIDED. ORAL CARE PROVIDED. TURNED AND REPOSITIONED Q2 AND PRN. HOB ELEVATED, SIDE RAILS UP AND LOCKED. BED KEPT AT LOWEST POSITION. ISOLATION PRECAUTIONS OBSERVED. SAFETY MEASURES MET. WILL ENDORSE CONTINUITY OF CARE TO AM NURSE.
--- NOTE | 2017-11-19 07:31 | NUR ---
PUBLIC TRANSIT BUS DRIVER RECEIVED PATENT FROM THE PREVIOUS SHIFT. PATIENT IS IN BED. RESTING COMFORTABLY. NO ACUTE DISTRESS NOTED. AFEBRILE. SINUS RHYTHM MONITOR. GOOD GT FEED TOLERANCE. ALERT AND ORIENTED. OFF SEDATION. RESTRAINTS ARE ON FOR SAFETY. WILL CONTINUE TO MONITOR AND PROVIDE CARE.
--- NOTE | 2017-11-19 07:43 | NUR ---
RT PATIENT REC'D ORALLY INTUBATED ON [facility] VENT WITH SETTINGS SET BY MD VARUN BHAGAT. VENT ALARMS CHECKED+ AUDIBLE. CUFF PRESSURE CHECKED BODY AND FENDER WORKER. SX'D WITH SMALL AMT BISHOP SEMITHICK SECRETIONS. B/S DIM. PATIENT APPEARS COMFORTABLE. AMBU BAG AT HOB. CONT CURRENT PLAN OF RESP CARE. Addendum: 11/19/17 at 0858 by LIZZIE BLANTON RT Amended: Links added.
--- NOTE | 2017-11-19 07:54 | NUR ---
WOUND CARE CONSULT WOUND CARE CONSULT RECEIVED FOR PERINEAL EXCORIATIONS. WOUND CARE WILL DEFER TO SURGICAL TEAM WHO ARE FOLLOWING.
[2017-11-19] MEDS: VIT B CMPLX 3/FA/VIT C/BIOTIN 1 TAB TABLET PO SCH (08:17)
[2017-11-19] MEDS: LACTOBACILLUS RHAMNOSUS GG 1 EACH CAP.SPRINK GT SCH ×2 (08:17→16:21)
[2017-11-19] MEDS: LEVOTHYROXINE SODIUM 50 MCG TABLET NG SCH (08:17)
[2017-11-19] MEDS: FAMOTIDINE (20 MG) 20 MG TABLET PO SCH ×2 (08:17→20:41)
[2017-11-19] MEDS: HYDROGEL DRESSING 90 GM TUBE TP SCH (08:18)
[2017-11-19] MEDS: Z GUARD REMEDY 2 OZ OINT TP SCH (08:18)
--- NOTE | 2017-11-19 10:53 | NUR ---
RT DR CRAWLEY PLACED PATIENT ON SIMV MODE RR 10, VT 400, PS 12, PEEP +5. PATIENT CURRENTLY TOLERATING CHANGES WELL. WILL CONT TO MONITOR CLOSELY. CAM POND NOTIFIED Addendum: 11/19/17 at 1055 by LIZZIE BLANTON RT Amended: Links added.
--- NOTE | 2017-11-19 20:06 | NUR ---
PT RECEIVED INTUBATED ON VENT. PT TOLERATING SIMV MODE NO DISTRESS NOTED. 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 B/S DM BILAT. AMBU BAG AT [facility]. VENT ALARMS SET AND AUDIBLE. VENT PLUGGED INTO RED OUTLET. ETT SECURED, CUFF MANAGER AGENCY. WILL CONTINUE TO MONITOR. Addendum: 11/19/17 at 2009 by NOEMY HOUSTON RT Amended: Links added.
--- NOTE | 2017-11-19 20:22 | NUR ---
SEWING MACHINE ASSEMBLER: RECEIVED PATENT FROM THE PREVIOUS SHIFT, INTUBATED , NO SEDATION, ON SIMV MODE TOLERATING WELL.CONDITION STABLE, RESTING COMFORTABLY. NO ACUTE DISTRESS NOTED. AFEBRILE. SINUS RHYTHM MONITOR. GOOD GT FEED TOLERANCE. ALERT AND ORIENTED. . RESTRAINTS ARE ON FOR SAFETY. WILL CONTINUE TO MONITOR ....
[2017-11-19] MEDS: SIMVASTATIN 10 MG TABLET NG SCH (20:41)
--- NOTE | 2017-11-19 21:00 | NUR ---
BROWN STOCK WASHER; DURING INITIAL ASSESSMENT OF OG TUBE, FOUND IT CLOGGED, UNABLE TO FLUSH, REMOVED. INSERTED NEW OG TUBE # 16, VERIFIED PLACEMENT WITH TWO RNs( MYSELF AND MERITESS RECRUITING ASSOCIATE), TUBE IN RIGHT PLACE CHECKED WITH STETHOSCOPE.
--- NOTE | 2017-11-19 23:11 | NUR ---
INJECTION MOLDING ENGINEER: BEDSIDE REPORT GIVEN TO JAY JAY/RN, FOR CONTINUITY OF CARE. P IS IN STABLE CONDITION. V/S STABLE. OGT FEEDING NOVASOURCE RUNNING AT 30 ML/HR. SINUS RHYTHM ON MONITOR. BP STABLE.
[2017-11-20] VITALS (46 sets, daily range): BP systolic 98–132; BP diastolic 60–86
[2017-11-20] MEDS: BLOOD SUGAR DIAGNOSTIC 1 EACH STRIP IN SCH ×6 (01:03→22:18)
[2017-11-20] MEDS: INSULIN REGULAR, HUMAN 100 UNIT/ML 3 ML VIAL SQ PRN ×4 (01:05→17:23)
[2017-11-20] MEDS: MEROPENEM 500 MG in IV NS 0.9% 50 ML IV SCH ×2 (04:19→16:55)
[2017-11-20 04:54] LABS: BASOPHILS # (AUTO) 0.1 /CMM (0.0-0.2); BASOPHILS % (AUTO) 0.9 % (0.0-2.0); EOSINOPHILS # (AUTO) 0.1 /CMM (0.0-0.7); EOSINOPHILS % (AUTO) 1.2 % (0.0-6.0); HEMATOCRIT 26 % (33-45); HEMOGLOBIN 8.5 g/dL (11.5-14.8); LYMPHOCYTES # (AUTO) 0.7 /CMM (0.8-4.8); LYMPHOCYTES % (AUTO) 6.5 % (20.0-44.0); MEAN CORPUSCULAR HEMOGLOBIN 31 PG (26.0-33.0); MEAN CORPUSCULAR HGB CONC 33 g/dl (31.0-36.0); MEAN CORPUSCULAR VOLUME 94 fL (82-100); MONOCYTES # (AUTO) 0.4 /CMM (0.1-1.30); MONOCYTES % (AUTO) 3.8 % (2.0-12.0); NEUTROPHILS # (AUTO) 8.9 /CMM (1.8-8.9); NEUTROPHILS % (AUTO) 87.6 % (43.0-81.0); PLATELET COUNT (AUTO) 54 /CMM (150-450); RDW COEFFICIENT OF VARIATION 19.6 (11.5-15.0); RED BLOOD CELL COUNT(AUTO) 2.73 MIL/uL (4.0-5.2); WHITE BLOOD COUNT (AUTO) 10.1 K/uL (4.3-11.0)
[2017-11-20 05:20] LABS: CALCIUM, SERUM 8.6 mg/dL (8.5-10.1); CREATININE 2.1 mg/dL (0.6-1.3); MAGNESIUM 2.2 mg/dL (1.8-2.4); PHOSPHORUS 4.4 mg/dL (2.5-4.9); POTASSIUM 4.1 mmol/L (3.5-5.1)
[2017-11-20 05:30] LABS: EOSINOPHILS % (MANUAL) 2 % (0-4); LYMPHOCYTES % (MANUAL) 8 % (16-48); MONOCYTES % (MANUAL) 5 % (0-11.0); NEUTROPHILS % (MANUAL) 85 (42-76)
--- NOTE | 2017-11-20 07:00 | NUR ---
RT START NOTE, PT. 52 Y OLD FEMALE REC. ORALLY INTUBATED ETT # 7.0 @ 20 CM LIPLINE. ON VENT WITH NOTED SIMV MODE ALARMS ARE SET AND FUNCTIONAL. EQUAL CHEST RISE NOTED. B/S BILATERALLY RALES AND SUX'D FOR SMALL AMT OF WHITE SECRETIONS, PT. REMAIN STABLE AND CONTINUE FOR CARE AND MONITORING CLOSELY. AMBU BAG REMAIN AT THE BEDSIDE. VENT PLUGGED INTO RED OUTLET. Addendum: 11/20/17 at 0812 by RUBY LOPEZ RT Amended: Links added.
--- NOTE | 2017-11-20 07:30 | NUR ---
ASBESTOS HAZARD ABATEMENT WORKER RECEIVED PATIENT ON MECHANICAL VENTILATORY SUPPORT SATURATING 96% AWAKE ALERT X 1, FOLLOWS COMMAND BUT DISORIENTED AT TIMES THUS ON BILATERAL SOFT RESTRAINT MAINTAINED ON SIMV 10 ON FEEDING TUBE TOLERATING FAIRLY, SMALL RESIDUAL NOTED FLUSHED TUBE WITH 30 ML OF WATER TO PREVENT CLOGGING (+) DEPENDENT EDEMA MONITORED CLOSELY
[2017-11-20] MEDS: LEVOTHYROXINE SODIUM 50 MCG TABLET NG SCH (07:57)
[2017-11-20] MEDS: FAMOTIDINE (20 MG) 20 MG TABLET PO SCH ×2 (09:04→22:18)
[2017-11-20] MEDS: HYDROGEL DRESSING 90 GM TUBE TP SCH (09:04)
[2017-11-20] MEDS: LACTOBACILLUS RHAMNOSUS GG 1 EACH CAP.SPRINK GT SCH ×2 (09:04→16:56)
[2017-11-20] MEDS: VIT B CMPLX 3/FA/VIT C/BIOTIN 1 TAB TABLET PO SCH (09:04)
[2017-11-20] MEDS: Z GUARD REMEDY 2 OZ OINT TP SCH (09:05)
--- NOTE | 2017-11-20 10:00 | NUR ---
PANEL FLOW MACHINE OPERATOR DR. VAZQUEZ SAW THE PATIENT AND ORDERED TO PUT PATIENT ON CPAP THEN ABG AFTER 1 HR CPAP AT 1010
[2017-11-20 11:28] LABS: ABG BASE EXCESS 4.1 mmol/L; ABG OXYGEN SATURATION 94.1 % (92.0-98.5); ABG PCO2 45.8 mmHg (35.0-45.0); ABG PH 7.421 (7.350-7.450); ABG PO2 78.8 mmHg (75.0-100.0); AaDO2 153.7 mmHg; COHb 0.6 % (0.5-1.5); MetHb 0.5 % (0.0-1.5); O2Hb 93.1 % (94.0-97.0); PEEP,BG 5 cm H2O; SITE, ABG Right Radial; VT, ABG 400 mL
--- NOTE | 2017-11-20 11:30 | NUR ---
AUTOMOTIVE PARTS COORDINATOR PLACED PATIENT BACK ON SIMV 10
--- NOTE | 2017-11-20 11:34 | NUR ---
POST ABG RESULTS ON (CPAP MODE, PS 12) FIO2 40%, PEEP +5 WEANING TRIAL SINCE 1010 AM AND AT [address] CRAWLEY. AT THE BEDSIDE. PT. AWAKE AND ALERT FAMILY MEMBER AT THE BEDSIDE. PLACED BACK ON (SIMV MODE RR10, VT400, PS12, FIO2 40%, PEEP +5). PER DR. CRAWLEY ORDER. CAM YEPEZ NOTIFIED. PT. AND VITALS REMAIN STABLE. Addendum: 11/20/17 at 1140 by RUBY LOPEZ RT Amended: Links added.
[2017-11-20] MEDS: ALBUMIN 25% 25 GM in PREMIX 1 EA IV PRN (14:30)
[2017-11-20] MEDS: RENAL NOVASOURCE 1,000 ML BOTTLE GT PRN (17:11)
--- NOTE | 2017-11-20 17:45 | NUR ---
RT END OF THE SHIFT REPORT, PT. 52 Y OLD FEMALE REC. ORALLY INTUBATED ETT # 7.0 @ 20 CM LIPLINE. ON VENT WITH NOTED SIMV MODE ALARMS ARE SET AND FUNCTIONAL. EQUAL CHEST RISE NOTED. B/S BILATERALLY RALES AND SUX'D FOR SMALL AMT OF WHITE SECRETIONS, HME CHANGED. WEANING TRAIL FAILED PER DPedrito CRAWLEY POST ABG ON CPAP MODE T/O DAY AND PLACED BACK ON SIMV MODE PER MD ORDER AT THE BEDSIDE. PT. REMAIN STABLE AND CONTINUE FOR CARE AND MONITORING CLOSELY. NO DISTRESS NOTED. VARUN. SETTINGS WELL. AMBU BAG REMAIN AT THE BEDSIDE. VENT PLUGGED INTO RED OUTLET. REPORT WILL PASS TO PM SHIFT. Addendum: 11/20/17 at 1748 by RUBY LOPEZ RT Amended: Links added.
--- NOTE | 2017-11-20 18:21 | NUR ---
POLE FRAMER PATIENT IS FOR TRACHEOSTOMY PLACEMENT AND PEG PLACEMENT ISSA HIGUERA SAW PATIENT AND ORDERED TO GET CONSENT STILL UNABLE TO GET HOLD OF THE FAMILY AWAITING CONSENT FROM FAMILY MONITORED CLOSELY ENDORSED TO NOD
--- NOTE | 2017-11-20 19:54 | NUR ---
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 INITIAL ASSESSMENT. RECEIVED THE PT REST ON THE BED. ORALLY INTUBATED. ETT 7,LIP 20CM,SIMV 10,PS 12,TV 400,FIO2 40%,PEEP 5. SAT 98%. PICKLER HELPER SHOWING NSR. MERVIN SOFT WRIST RESTRAINT CHECKED AND RELEASED. NO INJUEY OR REDNESS NOTED. IV RT CHEST HD CATH,RT UPPER ARM PICC LINE. TKO RUNNING. OGT INTACT. NOVA SOURCE 30ML/H. HOB ELEVATED. WILL CONTINUE TO MONITOR VITALS.
--- NOTE | 2017-11-20 20:39 | NUR ---
PT RECEIVED INTUBATED ON VENT. PT TOLERATING SIMV MODE NO DISTRESS NOTED. 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 B/S DM BILAT. AMBU BAG AT [facility]. VENT ALARMS SET AND AUDIBLE. VENT PLUGGED INTO RED OUTLET. ETT SECURED, CUFF FINE GRADE BULLDOZER OPERATOR. WILL CONTINUE TO MONITOR. Addendum: 11/20/17 at 2038 by NOEMY HOUSTON RT Amended: Links added.
[2017-11-20] MEDS: SIMVASTATIN 10 MG TABLET NG SCH (22:18)
[2017-11-21] VITALS (45 sets, daily range): BP systolic 84–129; BP diastolic 55–89
[2017-11-21] MEDS: BLOOD SUGAR DIAGNOSTIC 1 EACH STRIP IN SCH ×6 (01:53→21:29)
--- NOTE | 2017-11-21 04:02 | NUR ---
LOG DATA TECHNICIAN. AM CARE. ORAL CARE, BED BATH GIVEN. LINEN CHANGED. PT NPO FROM 0400. FOR EGD WITH PEG PLACEMENT. CONSENT TO BE TAKEN. REMAINING SAME VENT SETTING TOLERATED WELL. SAT 98%. NO ACUTE DISTRESS NOTED. CANDY DIPPER HAND SHOWING NSR. IV LT UPPER ARM PICC LINE IVF NS TKO RUNNING. MERVIN SOFT WRIST RESTRAINT CHECKED AND RELEASED. NO INJURY OR REDNESS NOTED. HOB ELEVATED. TURN AND REPOSITION Q2H. WILL CONTINUE TO MONITOR VITALS.
[2017-11-21 04:57] LABS: BASOPHILS # (AUTO) 0.1 /CMM (0.0-0.2); BASOPHILS % (AUTO) 0.8 % (0.0-2.0); EOSINOPHILS # (AUTO) 0.1 /CMM (0.0-0.7); EOSINOPHILS % (AUTO) 1.4 % (0.0-6.0); HEMATOCRIT 24 % (33-45); HEMOGLOBIN 8.1 g/dL (11.5-14.8); LYMPHOCYTES # (AUTO) 0.6 /CMM (0.8-4.8); LYMPHOCYTES % (AUTO) 6.4 % (20.0-44.0); MEAN CORPUSCULAR HEMOGLOBIN 32 PG (26.0-33.0); MEAN CORPUSCULAR HGB CONC 33 g/dl (31.0-36.0); MEAN CORPUSCULAR VOLUME 96 fL (82-100); MONOCYTES # (AUTO) 0.5 /CMM (0.1-1.30); MONOCYTES % (AUTO) 4.9 % (2.0-12.0); NEUTROPHILS # (AUTO) 8.3 /CMM (1.8-8.9); NEUTROPHILS % (AUTO) 86.5 % (43.0-81.0); RDW COEFFICIENT OF VARIATION 20.5 (11.5-15.0); RED BLOOD CELL COUNT(AUTO) 2.56 MIL/uL (4.0-5.2); WHITE BLOOD COUNT (AUTO) 9.6 K/uL (4.3-11.0)
[2017-11-21] MEDS: MEROPENEM 500 MG in IV NS 0.9% 50 ML IV SCH ×2 (05:02→17:01)
[2017-11-21 05:19] LABS: CALCIUM, SERUM 8.5 mg/dL (8.5-10.1); CREATININE 1.6 mg/dL (0.6-1.3); MAGNESIUM 2.2 mg/dL (1.8-2.4); PHOSPHORUS 4.1 mg/dL (2.5-4.9); POTASSIUM 3.5 mmol/L (3.5-5.1)
[2017-11-21 05:34] LABS: PLATELET COUNT (AUTO) 36 /CMM (150-450)
[2017-11-21 05:49] LABS: BAND % (MANUAL) 4 % (0.0-5.0); EOSINOPHILS % (MANUAL) 1 % (0-4); LYMPHOCYTES % (MANUAL) 7 % (16-48); MONOCYTES % (MANUAL) 4 % (0-11.0); NEUTROPHILS % (MANUAL) 84 (42-76)
--- NOTE | 2017-11-21 07:30 | NUR ---
TECHNOLOGY PROGRAM MANAGER RECEIVED PATIENT ASLEEP ON MECHANICAL VENTILATORY SUPPORT SATURATING WELL AFEBRILE PLACED ON NPO DUE TO POSSIBLE SURGERY, AWAITING FAMILY MEMBER'S CONSENT FOR SURGERY PATIENT IS FRAIL AND HAS DISTENDED ABDOMEN MONITORED CLOSELY
[2017-11-21 07:46] LABS: ABG BASE EXCESS 2.9 mmol/L; ABG OXYGEN SATURATION 97.5 % (92.0-98.5); ABG PCO2 44.1 mmHg (35.0-45.0); ABG PH 7.417 (7.350-7.450); ABG PO2 117.1 mmHg (75.0-100.0); AaDO2 117.4 mmHg; COHb 0.6 % (0.5-1.5); MetHb 0.6 % (0.0-1.5); O2Hb 96.3 % (94.0-97.0); SITE, ABG Right Radial; VENT MODE, BG SIMV 10 400 40% +5
[2017-11-21] MEDS: LEVOTHYROXINE SODIUM 50 MCG TABLET NG SCH (07:50)
[2017-11-21] MEDS: FAMOTIDINE (20 MG) 20 MG TABLET PO SCH ×3 (09:00→21:29)
[2017-11-21] MEDS: LACTOBACILLUS RHAMNOSUS GG 1 EACH CAP.SPRINK GT SCH ×3 (09:00→17:01)
[2017-11-21] MEDS: VIT B CMPLX 3/FA/VIT C/BIOTIN 1 TAB TABLET PO SCH (09:02)
[2017-11-21] MEDS: HYDROGEL DRESSING 90 GM TUBE TP SCH (09:03)
[2017-11-21] MEDS: Z GUARD REMEDY 2 OZ OINT TP SCH (09:03)
[2017-11-21 10:35] LABS: INR 1.23 (0.87-1.13)
--- NOTE | 2017-11-21 11:00 | NUR ---
PUBLIC ADDRESS SYSTEM INSTALLER ABLE TO TALKED TO HER DAUGHTER, JOSE, AND SHE DID NOT SIGN THE CONSENT SINCE SHE DOES NOT WANT TO DECIDE FOR HER MOTHER. SHE SAID THAT HER MOTHER IS STILL WITH IT AND WILL TALK TO HER WITH HER BROTHER REGARDING THE UPCOMING SURGERY I GAVE HER NUMBER TO ISSA HIGUERA SINCE SHE WANTED TO TALK TO THE ROTARY CUTTER OPERATOR OR SURGEON BEFORE DOING PEG PLACEMENT DR. CRAWLEY WAS ALSO IN THE UNIT DURING MY TALK WITH THE DAUGHTER AND HANDED OVER TO DR. CRAWLEY TO EXPLAIN THE BENEFITS OF PLACING TRACH TO HER MOTHER
[2017-11-21] MEDS: RENAL NOVASOURCE 1,000 ML BOTTLE GT PRN (12:42)
--- NOTE | 2017-11-21 13:00 | NUR ---
GUIDE DOG TRAINER INFORMED OR TO CANCEL TRACH PLACEMENT SCHEDULE FOR PEG PLACEMENT YAZ, WILL HOLD FOR THE MEANTIME SINCE NO CONSENT IS SIGNED
[2017-11-21] MEDS: INSULIN REGULAR, HUMAN 100 UNIT/ML 3 ML VIAL SQ PRN ×2 (13:04→17:28)
--- NOTE | 2017-11-21 17:33 | NUR ---
Pt tolerated current vent settings well. No changes made. Vent is plugged into a red outlet, alarms are set and audible, and BVM is at bedside. Addendum: 11/21/17 at 1739 by PETRA RIZO RT Amended: Links added.
[2017-11-21] MEDS: ALBUMIN 25% 25 GM in PREMIX 1 EA IV PRN (17:45)
[2017-11-21] MEDS: MORPHINE SULFATE INJ 4 MG/ML DISP.SYRIN IM PRN (18:40)
--- NOTE | 2017-11-21 19:07 | NUR ---
MICA WASHER GLUER JOSE GORDON, DAUGHTER OF THE PATIENT CAME IN TO SIGN THE CONSENT FOR BOTH TRACH AND PEG PLACEMENT THE PATIENT ALSO AGREED OF THE PROCEDURE WHEN I ASKED HER IF SHE WANTED TO DO THE PROCEDURES THE PATIENT NODDED
--- NOTE | 2017-11-21 19:49 | NUR ---
GRAB SETTER. INITIAL ASSESSMENT.RECEIVED THE PT REST ON THE BED, ORALLY INTUBATED. ETT #7, LIP 20,SIMV 10,PS 12,TV 400,FIO2 40%,PEEP 5. SAT 98%. NO ACUTE DISTRESS NOTED. ICT SECURITY SPECIALIST SHOWING NSR. IV LT UPPER ARM PICC LINE TKO @5ML/H. MERVIN SOFT WRIST RESTRAINT CHECKED AND RELEASED. NO INJURY OR REDNESS NOTED. HOB ELEVATED. OGT FEEDING NOVA SOURCE 30ML/H. HOB ELEVATED. TURN AND REPOSITION WILL CONTINUE TO MONITOR VITALS.
[2017-11-21] MEDS: SIMVASTATIN 10 MG TABLET NG SCH (21:29)
[2017-11-22] VITALS (52 sets, daily range): BP systolic 87–129; BP diastolic 48–83
[2017-11-22] MEDS: BLOOD SUGAR DIAGNOSTIC 1 EACH STRIP IN SCH ×6 (01:46→21:02)
--- NOTE | 2017-11-22 03:21 | NUR ---
STORE CLERK. AM CARE. ORAL CARE, BED BATH GIVEN. LINEN CHANGED, REMAINING SAME VENT SETTING TOLERATED WELL. SAT 98%. NO ACUTE DISTRESS NOTED. STEEL BUFFER SHOWING NSR. IV RLT UPPER ARM PICC LINE TKO RUNNING, HOB ELEVATED, NPO. FOR THIS AM. PRG AND TRACH PLACEMENT. AFEBRILE. MERVIN SOFT WRIST RESTRAINT CHECKED AND RELEASED, NO INJURY OR REDNESS NOTED. TURN AND REPOSITION Q2H. WILL CONTINUE TO MONITOR VITALS.
--- NOTE | 2017-11-22 03:25 | NUR ---
FIREFIGHTER TYPE ONE. PICC LINE DRESSING CHANGED.
[2017-11-22] MEDS: MEROPENEM 500 MG in IV NS 0.9% 50 ML IV SCH ×2 (04:19→16:43)
[2017-11-22 05:09] LABS: BASOPHILS # (AUTO) 0.1 /CMM (0.0-0.2); BASOPHILS % (AUTO) 1.3 % (0.0-2.0); EOSINOPHILS # (AUTO) 0.2 /CMM (0.0-0.7); EOSINOPHILS % (AUTO) 2.1 % (0.0-6.0); HEMATOCRIT 22 % (33-45); HEMOGLOBIN 7.4 g/dL (11.5-14.8); LYMPHOCYTES # (AUTO) 0.7 /CMM (0.8-4.8); MEAN CORPUSCULAR HEMOGLOBIN 32 PG (26.0-33.0); MEAN CORPUSCULAR HGB CONC 33 g/dl (31.0-36.0); MEAN CORPUSCULAR VOLUME 95 fL (82-100); MONOCYTES # (AUTO) 0.6 /CMM (0.1-1.30); MONOCYTES % (AUTO) 6.1 % (2.0-12.0); NEUTROPHILS # (AUTO) 7.5 /CMM (1.8-8.9); NEUTROPHILS % (AUTO) 82.5 % (43.0-81.0); RDW COEFFICIENT OF VARIATION 21.1 (11.5-15.0); RED BLOOD CELL COUNT(AUTO) 2.35 MIL/uL (4.0-5.2); WHITE BLOOD COUNT (AUTO) 9.1 K/uL (4.3-11.0)
[2017-11-22 05:24] LABS: CREATININE 1.6 mg/dL (0.6-1.3); POTASSIUM 3.8 mmol/L (3.5-5.1)
[2017-11-22 05:25] LABS: INR 1.22 (0.87-1.13)
[2017-11-22 05:31] LABS: PLATELET COUNT (AUTO) 38 /CMM (150-450)
[2017-11-22 05:42] LABS: BAND % (MANUAL) 4 % (0.0-5.0); NEUTROPHILS % (MANUAL) 82 (42-76)
[2017-11-22 05:43] LABS: EOSINOPHILS % (MANUAL) 2 % (0-4); LYMPHOCYTES % (MANUAL) 7 % (16-48); MONOCYTES % (MANUAL) 5 % (0-11.0)
--- NOTE | 2017-11-22 06:41 | NUR ---
COMMUNITY HEALTH WORKER. THIS MORNING PLATELETS 38. ORDER IS PLT <40 TRANSFUSE 1UNIT PLATELET.PLATELETS STARTED. WILL CONTINUE TO MONITOR.
--- NOTE | 2017-11-22 06:43 | NUR ---
EARLY CHILDHOOD ASSOCIATE, PT NPO FROM 0000.
[2017-11-22] MEDS ORDERED: ANESTHESIA TRAY IN PYXIS 1 EA TRAY MC ONE (07:25)
[2017-11-22] MEDS: LEVOTHYROXINE SODIUM 50 MCG TABLET NG SCH (07:30)
[2017-11-22] MEDS: LACTOBACILLUS RHAMNOSUS GG 1 EACH CAP.SPRINK GT SCH ×2 (08:08→16:48)
[2017-11-22] MEDS: FAMOTIDINE (20 MG) 20 MG TABLET PO SCH (08:08)
[2017-11-22] MEDS: VIT B CMPLX 3/FA/VIT C/BIOTIN 1 TAB TABLET PO SCH (08:08)
[2017-11-22] MEDS: HYDROGEL DRESSING 90 GM TUBE TP SCH (08:13)
[2017-11-22] MEDS: Z GUARD REMEDY 2 OZ OINT TP SCH (08:13)
--- NOTE | 2017-11-22 11:08 | NUR ---
PROFESSOR OF LEGAL STUDIES NOTE 0720: Received patient awake, lethargic, able to follow simple commands at times. No respiratory distress noted at this time. With ETT to vent, tolerated SIMV mode. With OGT clamped, remained BPO for PEG placement today. With JO PICC intact. RCW HD cath intact. SR 60's ont he monitor. On isolation prec for ESBL urine, maintained and observed. 0830: Spoke with zachary Grider via phone and given update re: the procedure. 0900: OR personnels in the unit for bedside PEG placement. 0925: Done with PEG placement, patient tolerated well. VSS, no any significant changes noted. 0930: S/E by Dr. Schmidt, no new order at this time, awaiting trahce placement sked. 1030: Visited by zachary Grider and showed GT. Made aware re: trache placement that is scheduled at 1700, verbalized understanding. HD nurse at bedside, given labs. VSS. 1100: No any significant changes noted at this time, tolerated HD.
--- NOTE | 2017-11-22 12:00 | NUR ---
RN NOTE RECEIVED PT FROM CAM GARZA, FOR ANA. PT ON BED, ON SIMV MODE, LETHARGIC, CO PAIN, VS STABLE, HD AT BEDSIDE, NPO, NEW G TUBE IN PLACE, SITE IS NOTED TO BLEED. PRESSURE DRESSING APPLIED. WILL MONITOR.
[2017-11-22] MEDS: MORPHINE SULFATE INJ 4 MG/ML DISP.SYRIN IM PRN (14:22)
[2017-11-22 15:32] LABS: BASOPHILS % (AUTO) 0.2 % (0.0-2.0); EOSINOPHILS # (AUTO) 0.1 /CMM (0.0-0.7); EOSINOPHILS % (AUTO) 1.5 % (0.0-6.0); HEMATOCRIT 23 % (33-45); HEMOGLOBIN 7.7 g/dL (11.5-14.8); LYMPHOCYTES # (AUTO) 0.7 /CMM (0.8-4.8); LYMPHOCYTES % (AUTO) 7.7 % (20.0-44.0); MEAN CORPUSCULAR HEMOGLOBIN 31 PG (26.0-33.0); MEAN CORPUSCULAR HGB CONC 33 g/dl (31.0-36.0); MEAN CORPUSCULAR VOLUME 94 fL (82-100); MONOCYTES # (AUTO) 0.7 /CMM (0.1-1.30); MONOCYTES % (AUTO) 7.5 % (2.0-12.0); NEUTROPHILS # (AUTO) 8.1 /CMM (1.8-8.9); NEUTROPHILS % (AUTO) 83.1 % (43.0-81.0); RDW COEFFICIENT OF VARIATION 19.8 (11.5-15.0); RED BLOOD CELL COUNT(AUTO) 2.44 MIL/uL (4.0-5.2); WHITE BLOOD COUNT (AUTO) 9.6 K/uL (4.3-11.0)
[2017-11-22 15:41] LABS: APPEARANCE,URINE CLOUDY (CLEAR); BILIRUBIN,URINE 2+ (NEGATIVE); BLOOD, URINE 3+ Ery/uL (NEGATIVE); COLOR,URINE BROWN (YELLOW); KETONES,URINE TRACE (NEGATIVE); LEUKOCYTE ESTERASE ,URINE 2+ (NEGATIVE); NITRITE, URINE POSITIVE (NEGATIVE); PH,URINE 6.5 (5.0-8.0); PROTEIN,URINE 3+ mg/dl (NEGATIVE); UGLUCOSE NEGATIVE (NEGATIVE)
[2017-11-22 15:43] LABS: BACTERIA,URINE Many /HPF (None Seen); SQUAMOUS EPITHELIAL CELL,UR Few /HPF (None Seen); WBC,URINE TOO NUMEROUS TO COUN /HPF (0-3)
[2017-11-22 15:58] LABS: PLATELET COUNT (AUTO) 76 /CMM (150-450)
[2017-11-22 15:59] LABS: EOSINOPHILS % (MANUAL) 3 % (0-4); LYMPHOCYTES % (MANUAL) 7 % (16-48); MONOCYTES % (MANUAL) 5 % (0-11.0); NEUTROPHILS % (MANUAL) 85 (42-76)
[2017-11-22] MEDS ORDERED: LIDOCAINE 1% INJ 50 ML MDV IJ ONE (16:36)
[2017-11-22] MEDS ORDERED: FENTANYL PF 100MCG/2ML AMPUL ONE (17:37)
[2017-11-22] MEDS ORDERED: ATRACURIUM 100MG/10 ML MDV IV ONE (17:38)
--- NOTE | 2017-11-22 18:30 | NUR ---
RN NOTE PT BACH FROM OR, PT LETHARGIC, VS STABLE. ON MECH VENT, TRACHEOSTOMY PLACED, SITE IS BLEEDING, SURGEON NOTIFIED.
--- NOTE | 2017-11-22 18:50 | NUR ---
RN NOTE DR CAMPBELL CAME AND PACKED TRACHEOSTOMY SITE WITH SURGICELL, BLEEDING SEEMD TO STOP. WILL MONITOR PT CLOSELY.
--- NOTE | 2017-11-22 19:30 | NUR ---
RN NOTE SPOKE WITH DR RODRIGUEZ REGARDING G TUBE SITE BLEEDING, HE ORDERED 1 UNIT OF FFP TO BE TRANSFUSED. CBC CHECK IN THE MORNING. WILL ORDER AND ENDORSE TO TELEPRINTER.
--- NOTE | 2017-11-22 20:13 | NUR ---
INSTALLER INSPECTOR FINAL DF PT S/P TRACHEOSTOMY TODAY WITH BLEEDING NOTED POST PROCEDURE 2ND LOW PLATELET COUNT OF 38. DR JULY CALVILLO EARLIER PACKED THE SITE WITH SURGICEL AND BLEEDING IS MINIMAL AT THIS TIME. BLEEDING ALSO NOTED TO PEG SITE AROUND INSERTION SITE, SITE COVERED WITH GAUZE DRESSINGS, AND PRESSURE DRESSING. NO BLEEDING NOTED AROUND GT SITE AT THIS TIME.VSS. A/OX2 FOLLOWS COMMANDS. INTERVENTION PLANNED FOR LOW PLTS AND BLEEDING PT WILL RECEIVE 1 UNIT FFP NOW WHEN AVAIL BY LAB AND FOLLOW UP LABS IN AM/PRN. Addendum: 11/22/17 at 2036 by GAVIN BONE RN HGB/HCT @ 1515 11/22/17
--- NOTE | 2017-11-22 21:03 | NUR ---
PEDIATRICIAN MANAGING PARTNER DF ACCU CHECK OF 121 NO COVERAGE PER SLIDING SCALE I WILL RECHECK WITHIN 6 HOURS/PRN. I SPOKE WITH PT DAUGHTER AT [phone] UPDATED REGARDING POC.
[2017-11-22] MEDS: SIMVASTATIN 10 MG TABLET NG SCH (21:18)
--- NOTE | 2017-11-22 21:28 | NUR ---
Received pt on vent support, pt stable on current settings, no SOB or respiratory distress noted, ventilator is plugged into red outlet, alarms audible and on. Ambu bag at bedside, will continue monitoring per MDS orders. Addendum: 11/22/17 at 2131 by MOLLY GRAHAM RT Amended: Links added.
--- NOTE | 2017-11-22 23:13 | NUR ---
AIRCRAFT ENGINE MECHANIC DF PT 1 UNIT FFP FINISHED TRANSFUSING @2250.PT STILL WITH MODERATE BLEEDING TO TRACH SITE, BLOOD IS OOZING INTO PT,S MOUTH FROM TRACH SITE. ENT MD MCDOWELL AWARE OF STATUS. HEMATOLOGY AWARE TRANSFUSION PARAMETERS ORDERED. PT HAS CBC DUE AT 2330 STATUS CHANGED TO STAT. AWAITING RESULTS. VSS. NO CHANGE IN NEURO STATUS. BASELINE VITAL SIGNS UNCHANGED SINCE 1900.
--- NOTE | 2017-11-22 23:55 | NUR ---
CAFE LEAD DF CBC DRAWN STAT AWAITING RESULTS.VSS.NAD NOTED. A/OX2-3
[2017-11-22 23:58] LABS: BASOPHILS # (AUTO) 0.1 /CMM (0.0-0.2); BASOPHILS % (AUTO) 1.2 % (0.0-2.0); EOSINOPHILS # (AUTO) 0.1 /CMM (0.0-0.7); EOSINOPHILS % (AUTO) 0.9 % (0.0-6.0); LYMPHOCYTES # (AUTO) 0.6 /CMM (0.8-4.8); LYMPHOCYTES % (AUTO) 8.5 % (20.0-44.0); MEAN CORPUSCULAR HEMOGLOBIN 32 PG (26.0-33.0); MEAN CORPUSCULAR HGB CONC 33 g/dl (31.0-36.0); MEAN CORPUSCULAR VOLUME 96 fL (82-100); MONOCYTES # (AUTO) 0.6 /CMM (0.1-1.30); MONOCYTES % (AUTO) 8.1 % (2.0-12.0); NEUTROPHILS # (AUTO) 5.6 /CMM (1.8-8.9); NEUTROPHILS % (AUTO) 81.3 % (43.0-81.0); PLATELET COUNT (AUTO) 64 /CMM (150-450); WHITE BLOOD COUNT (AUTO) 6.9 K/uL (4.3-11.0)
[2017-11-22 23:59] LABS: RED BLOOD CELL COUNT(AUTO) 1.63 MIL/uL (4.0-5.2)
[2017-11-23] VITALS (35 sets, daily range): BP systolic 78–144; BP diastolic 45–93
[2017-11-23 00:01] LABS: HEMATOCRIT 16 % (33-45); HEMOGLOBIN 5.2 g/dL (11.5-14.8)
--- NOTE | 2017-11-23 00:03 | NUR ---
HOG KILLER DF CBC RESULTED HGB/HCT OF 5.2/16 PLTS OF 64. STAT PAGE PLACED TO HEMATOLOGY(NO RESPONSE)PAGED [facility].
[2017-11-23 01:43] LABS: BAND % (MANUAL) 5 % (0.0-5.0); NEUTROPHILS % (MANUAL) 82 (42-76)
[2017-11-23 01:44] LABS: LYMPHOCYTES % (MANUAL) 9 % (16-48); MONOCYTES % (MANUAL) 4 % (0-11.0)
[2017-11-23] MEDS: BLOOD SUGAR DIAGNOSTIC 1 EACH STRIP IN SCH ×6 (02:14→21:29)
--- NOTE | 2017-11-23 04:26 | NUR ---
IT APPLICATIONS DEVELOPER DF PRBC 2/2 STARTED TRANSFUSING PT/BLOOD PRODUCT VERIFIED BY 2 RN,Jesse JOSÉ. NO CHANGES IN STATUS.BLEEDING MILD TO MODERATE FROM TRACH SITE.
--- NOTE | 2017-11-23 04:28 | NUR ---
CONCRETE BLOCK MAKER DF I S/W MD PINK ORDERS FOR NPO UNTIL BLEEDING FROM TRACH IS UNDER CONTROL.
[2017-11-23] MEDS: MEROPENEM 500 MG in IV NS 0.9% 50 ML IV SCH ×2 (04:36→16:16)
[2017-11-23] MEDS ORDERED: CELLULOSE,OXIDIZED 1 EA PACK MC ONE (06:22)
--- NOTE | 2017-11-23 06:51 | NUR ---
INDUSTRIAL PHARMACIST DF ACCU CHECK OF 120 NO COVERAGE PER SLIDING SCALE. PT NPO
--- NOTE | 2017-11-23 07:57 | NUR ---
RT NOTE PT RECEIVED MECHANICALLY VENTILATED VIA SHILEY 8 CUFFED TRACH TUBE. BLOOD FOUND UPON SUCTIONING. SETTINGS PRESCRIBED SIMV PS 12 PEEP OF 5. ALARMS SET PER PROTOCOL AND AUDIBLE. VENT PLUGGED IN TO RED OUTLET. AMBU BAG AT BED SIDE. NO DISTRESS NOTED. WILL CONTINUE TO MONITOR. Addendum: 11/23/17 at 0800 by MIKE ROMAN RT Amended: Links added.
--- NOTE | 2017-11-23 08:04 | NUR ---
INITIAL DOCK BUILDER NOTE RCVD PT AWAKE AND ALERT, SHOWING NO S/O DISTRESS/PAIN AT THIS TIME. BILATERAL SOFT WRIST RESTRAINTS IN PLACE. CIRCULATION CHECKS DONE. SR ON TELE. TOLERATING ORDERED VENT SETTINGS AT THIS TIME. PEG PLACEMENT VERIFIED BY AUSCULTATION/ASPIRATION. NO GASTRIC CONTENT OBSERVED. JO PICC C/D/I/PATENT. NO S/O INFILTRATION/PHLEBITIS OBSERVED. HD ACCESS DRESSING C/D/I. PT NPO AT THIS TIME UNTIL BLEEDING STOPS PER DR. PINK. DRY BLOOD OBSERVED AROUND TRACHEOSTOMY SITE, NO ACTIVE BLEEDING. PRESSURE DRESSING NOTED OVER PEG INSERTION SITE C/D/I. WILL CONTINUE TO MONITOR PT FOR SAFETY AND COMFORT. CALL LIGHT WITHIN REACH. BED IN LOW AND LOCKED POSITION.
[2017-11-23] MEDS: VIT B CMPLX 3/FA/VIT C/BIOTIN 1 TAB TABLET PO SCH (08:41)
[2017-11-23] MEDS: LEVOTHYROXINE SODIUM 50 MCG TABLET NG SCH (08:41)
[2017-11-23] MEDS: LACTOBACILLUS RHAMNOSUS GG 1 EACH CAP.SPRINK GT SCH ×2 (08:41→17:36)
[2017-11-23] MEDS: Z GUARD REMEDY 2 OZ OINT TP SCH (08:51)
[2017-11-23] MEDS: RENAL NOVASOURCE 1,000 ML BOTTLE GT PRN (08:51)
[2017-11-23] MEDS: HYDROGEL DRESSING 90 GM TUBE TP SCH (08:52)
[2017-11-23 09:16] LABS: BASOPHILS # (AUTO) 0.1 /CMM (0.0-0.2); BASOPHILS % (AUTO) 0.6 % (0.0-2.0); EOSINOPHILS # (AUTO) 0.1 /CMM (0.0-0.7); EOSINOPHILS % (AUTO) 0.6 % (0.0-6.0); HEMATOCRIT 29 % (33-45); HEMOGLOBIN 9.7 g/dL (11.5-14.8); LYMPHOCYTES # (AUTO) 0.6 /CMM (0.8-4.8); LYMPHOCYTES % (AUTO) 6.1 % (20.0-44.0); MEAN CORPUSCULAR HEMOGLOBIN 31 PG (26.0-33.0); MEAN CORPUSCULAR HGB CONC 34 g/dl (31.0-36.0); MEAN CORPUSCULAR VOLUME 90 fL (82-100); MONOCYTES # (AUTO) 0.7 /CMM (0.1-1.30); MONOCYTES % (AUTO) 7.2 % (2.0-12.0); NEUTROPHILS % (AUTO) 85.5 % (43.0-81.0); PLATELET COUNT (AUTO) 56 /CMM (150-450); RDW COEFFICIENT OF VARIATION 16.9 (11.5-15.0); RED BLOOD CELL COUNT(AUTO) 3.17 MIL/uL (4.0-5.2); WHITE BLOOD COUNT (AUTO) 9.3 K/uL (4.3-11.0)
[2017-11-23 09:22] LABS: CALCIUM, SERUM 7.9 mg/dL (8.5-10.1); CREATININE 1.5 mg/dL (0.6-1.3); PHOSPHORUS 5.1 mg/dL (2.5-4.9); POTASSIUM 4.4 mmol/L (3.5-5.1)
[2017-11-23 09:26] LABS: BAND % (MANUAL) 3 % (0.0-5.0); EOSINOPHILS % (MANUAL) 1 % (0-4); LYMPHOCYTES % (MANUAL) 10 % (16-48); MONOCYTES % (MANUAL) 6 % (0-11.0); NEUTROPHILS % (MANUAL) 80 (42-76)
--- NOTE | 2017-11-23 10:16 | NUR ---
SMALL BATTERY PLATE ASSEMBLER NOTE DR. PINK IN UNIT INFORMED THAT PT'S REQUESTING TO HAVE PO INTAKE. HE RECOMMENDED SWALLOW EVAL AND ALLOWED PT TO HAVE ICE CHIPS FOR NOW. ORDERS ENTERED AND ACKNOWLEDGED. PT WAS INFORMED AND ACKNOWLEDGED. WILL CONTINUE TO MONITOR.
--- NOTE | 2017-11-23 11:58 | NUR ---
TRANSFER DOUGHNUT GLAZIER NOTE PT DOWNGRADED TO [facility]. PT WAS TRANSPORTED VIA MONITORED BED WITH RN AND RT AT BEDSIDE. PT'S DAUGHTER ACCOMPANIED PT DURING TRANSFER. PT AWAKE AND ALERT, SHOWING NO S/O DISTRESS/PAIN AT THIS TIME. SR ON TELE. APPEARED COMFORTABLE WHILE BEING BAGGED BY RT. PEG CLAMPED AND IV SALINE LOCKED DURING TRANSPORT. NO BELONGINGS WERE FOUND AT BEDSIDE, PT'S DAUGHTER AWARE. REPORT GIVE BY PHONE TO CAM ANGELES FROM [facility]. PT WAS CONNECTED TO PORTABLE BOBBIN COIL WINDER UPON ARRIVAL TO ROOM 119-1. KARTHIK AT BEDSIDE RECEIVED PT AND MET WITH PT'S DAUGHTER, JOSE.
[2017-11-23] MEDS: INSULIN REGULAR, HUMAN 100 UNIT/ML 3 ML VIAL SQ PRN ×2 (13:09→17:41)
--- NOTE | 2017-11-23 18:52 | NUR ---
RN NOTE: PATIENT RECEIVED FROM ICU TRANSFER. VENT TRAC, SETTINGS TOLERATING WELL. G-TUBE RUNNING WITH TUBE FEEDING ORDERED, TOLERATING WELL. LEFT UPPER ARM PICC LINE INTACT, ABLE TO FLUSH WITHOUT DIFFICULTY. ASPIRATION PRECAUTIONS OBSERVED. CONTINUE TO MONITOR CLOSELY FOR BLEEDING SYMPTOMS. ON ISOLATION ESBL URINE & BLOOD. AT 1645: NOTED ONE EPISODE OF RECTAL BLEEDING BRIGHT RED COLOR WITH SMALL AMOUNT OF STOOL. SPOKE WITH SANDER SETTER DR. BARNETT, CONTINUE TO MONITOR & CALL GI INDUSTRIAL RELATIONS COUNSELOR CONTACT ISSA HIGUERA OF DR. RODRIGUEZ, MADE HER AWARE. CONTINUE TO MONITOR. VITAL SIGNS STABLE. WILL ENDORSE TO PM SHIFT FOR CONTINUITY OF CARE.
[2017-11-23] MEDS ORDERED: MAGNESIUM CITRATE 296 ML BOTTLE GT ONE (20:00)
[2017-11-23] MEDS ORDERED: PEG 3350/NA SULF,BICARB,CL/KCL 4,000 ML BOTTLE GT ONE (20:00)
[2017-11-23] MEDS ORDERED: NA PHOS,M-B/NA PHOS,DI-BA 1 EA ENEMA RC PRN (20:00)
--- NOTE | 2017-11-23 20:00 | NUR ---
RN A[facility] INITIAL NOTE: PATIENT RECEIVED FROM AM SHIFT. VENT TRAC, SETTINGS TOLERATING WELL. G-TUBE RUNNING WITH TUBE FEEDING ORDERED, TOLERATING WELL. LEFT UPPER ARM PICC LINE INTACT, ABLE TO FLUSH WITHOUT DIFFICULTY. ASPIRATION PRECAUTIONS OBSERVED. CONTINUE TO MONITOR CLOSELY FOR BLEEDING SYMPTOMS. ON ISOLATION ESBL URINE & BLOOD, WITH BLOOD TINGE SECRETION WELL BLOOD IN STOOL REPORTED TO ISSA LIND DEICER ELEMENT WINDER MACHINE FOR TIVEDI, AWAITING FOR NEW ORDER.
--- NOTE | 2017-11-23 20:30 | NUR ---
CALLED BY ISSA LIND WEATHERIZATION CREW LEADER, DR RODRIGUEZ, WITH ORDER TO START GOLYTELY GT CAM[place], MAG CITRATE GT X 1 BOTTLE NOW, FLEET ENEMAXX2 PRN IF STOOL NOT CLEAR TOMORROW, COLONOSCOPY TO BE DONE IN AM, CBC EVERY 4 HRS, TRANSFUSE IF H & H IS < 7, 1 UNIT OF PLT STAND BY PLT COUNT 56, TYPE AND SCREEN ORDERED D/T LAB ADVICE, PREVIOUS ORDER EXPIRES AT 0800 AM ORDERS CARRIED OUT AND COMMUNICATED TO THE LAB, SPOKE TO BETTINA.
[2017-11-23] MEDS: SIMVASTATIN 10 MG TABLET NG SCH (21:34)
[2017-11-23 21:37] LABS: BASOPHILS # (AUTO) 0.1 /CMM (0.0-0.2); BASOPHILS % (AUTO) 0.7 % (0.0-2.0); EOSINOPHILS # (AUTO) 0.1 /CMM (0.0-0.7); HEMATOCRIT 29 % (33-45); HEMOGLOBIN 9.7 g/dL (11.5-14.8); LYMPHOCYTES # (AUTO) 0.8 /CMM (0.8-4.8); LYMPHOCYTES % (AUTO) 8.4 % (20.0-44.0); MEAN CORPUSCULAR HEMOGLOBIN 31 PG (26.0-33.0); MEAN CORPUSCULAR HGB CONC 34 g/dl (31.0-36.0); MEAN CORPUSCULAR VOLUME 91 fL (82-100); MONOCYTES # (AUTO) 0.9 /CMM (0.1-1.30); MONOCYTES % (AUTO) 9.6 % (2.0-12.0); NEUTROPHILS # (AUTO) 7.7 /CMM (1.8-8.9); NEUTROPHILS % (AUTO) 80.3 % (43.0-81.0); PLATELET COUNT (AUTO) 71 /CMM (150-450); RDW COEFFICIENT OF VARIATION 17.2 (11.5-15.0); RED BLOOD CELL COUNT(AUTO) 3.15 MIL/uL (4.0-5.2); WHITE BLOOD COUNT (AUTO) 9.6 K/uL (4.3-11.0)
[2017-11-23 21:46] LABS: NEUTROPHILS % (MANUAL) 80 (42-76)
[2017-11-23 21:47] LABS: BAND % (MANUAL) 2 % (0.0-5.0); LYMPHOCYTES % (MANUAL) 10 % (16-48); MONOCYTES % (MANUAL) 8 % (0-11.0)
[2017-11-24] VITALS: BP 131/82
[2017-11-24 00:19] LABS: BASOPHILS # (AUTO) 0.1 /CMM (0.0-0.2); BASOPHILS % (AUTO) 0.6 % (0.0-2.0); EOSINOPHILS # (AUTO) 0.2 /CMM (0.0-0.7); EOSINOPHILS % (AUTO) 1.3 % (0.0-6.0); HEMATOCRIT 28 % (33-45); HEMOGLOBIN 9.6 g/dL (11.5-14.8); LYMPHOCYTES % (AUTO) 8.6 % (20.0-44.0); MEAN CORPUSCULAR HEMOGLOBIN 31 PG (26.0-33.0); MEAN CORPUSCULAR HGB CONC 34 g/dl (31.0-36.0); MEAN CORPUSCULAR VOLUME 91 fL (82-100); MONOCYTES # (AUTO) 1.1 /CMM (0.1-1.30); MONOCYTES % (AUTO) 9.5 % (2.0-12.0); PLATELET COUNT (AUTO) 68 /CMM (150-450); WHITE BLOOD COUNT (AUTO) 11.2 K/uL (4.3-11.0)
[2017-11-24] MEDS: BLOOD SUGAR DIAGNOSTIC 1 EACH STRIP IN SCH ×6 (01:41→21:28)
[2017-11-24 04:00] VITALS: BP_SYST 116; BP_SYST 143; BP_DIAS 54; BP_DIAS 78
[2017-11-24 04:05] LABS: BASOPHILS % (AUTO) 0.1 % (0.0-2.0); EOSINOPHILS # (AUTO) 0.1 /CMM (0.0-0.7); EOSINOPHILS % (AUTO) 1.5 % (0.0-6.0); HEMATOCRIT 26 % (33-45); HEMOGLOBIN 8.9 g/dL (11.5-14.8); LYMPHOCYTES # (AUTO) 0.8 /CMM (0.8-4.8); LYMPHOCYTES % (AUTO) 8.9 % (20.0-44.0); MEAN CORPUSCULAR HEMOGLOBIN 31 PG (26.0-33.0); MEAN CORPUSCULAR HGB CONC 34 g/dl (31.0-36.0); MEAN CORPUSCULAR VOLUME 91 fL (82-100); MONOCYTES # (AUTO) 0.8 /CMM (0.1-1.30); MONOCYTES % (AUTO) 8.7 % (2.0-12.0); NEUTROPHILS # (AUTO) 7.3 /CMM (1.8-8.9); NEUTROPHILS % (AUTO) 80.8 % (43.0-81.0); PLATELET COUNT (AUTO) 53 /CMM (150-450); RDW COEFFICIENT OF VARIATION 17.6 (11.5-15.0); RED BLOOD CELL COUNT(AUTO) 2.85 MIL/uL (4.0-5.2); WHITE BLOOD COUNT (AUTO) 9.1 K/uL (4.3-11.0)
--- NOTE | 2017-11-24 05:25 | NUR ---
RT NOTE PT RECEIVED MECHANICALLY VENTILATED VIA SHILEY 8 CUFFED TRACH TUBE. BLOOD FOUND UPON SUCTIONING. SETTINGS PRESCRIBED SIMV PS 12 PEEP OF 5. ALARMS SET PER PROTOCOL AND AUDIBLE. VENT PLUGGED IN TO RED OUTLET. AMBU BAG AT BED SIDE. NO DISTRESS NOTED. WILL CONTINUE TO MONITOR.
--- NOTE | 2017-11-24 06:26 | NUR ---
RN [facility] CLOSING PT PREP DONE, SUCCESSFUL @ 0300 AM WITH X4 LOOSE STOOL, LAST 2 WATERLY, FOR COLONOSCOPY TODAY, VS STABLE, NO EPISODE OF RECTAL BLEED.
--- NOTE | 2017-11-24 07:10 | NUR ---
RN NOTES PATIENT RECEIVED ON BED, VENT/ TRACH DEPENDENT , TOLERATING CURRENT VENT SETTING WELL, NO DISTRESS NOTED, GT CLAMPED AT THIS TIME , PT IS NPO FOR COLOSCOPY THIS AM, LEFT UPPER ARM PICC LINE INTACT, ABLE TO FLUSH WITHOUT DIFFICULTY. HOB ELEVATED, ON ISOLATION FOE ESBL URINE AND BLOOD, CONTINUE TO MONITOR CLOSELY FOR BLEEDING SYMPTOMS. ON ISOLATION ESBL URINE & BLOOD, SR UPx3, CALL LIGHTS WITHIN EASY REACH, BED LOCKED AND IN LOWEST POSITION , WILL CONTINUE TO MONITOR CLOSELY
[2017-11-24 08:00] VITALS: BP 125/85
[2017-11-24] MEDS: LACTOBACILLUS RHAMNOSUS GG 1 EACH CAP.SPRINK GT SCH ×2 (09:00→16:21)
[2017-11-24] MEDS: Z GUARD REMEDY 2 OZ OINT TP SCH (09:34)
[2017-11-24] MEDS: HYDROGEL DRESSING 90 GM TUBE TP SCH (09:35)
--- NOTE | 2017-11-24 11:00 | NUR ---
RN NOTES PT STILL NPO FOR COLONOSCOPY . CONSENT SIGNED BY PT DAUGHTER , PT WILL GO FOR COLOSCOPY IN THE AFTER NOON PER ISSA LIND TALENT SPECIALIST AND NURSING CHARGE ATTENDANT. CONTINUE TO MONITOR .
[2017-11-24 12:00] VITALS: BP_SYST 118; BP_SYST 123; BP_DIAS 77; BP_DIAS 87
[2017-11-24 16:00] VITALS: BP 116/78
[2017-11-24] MEDS: RENAL NOVASOURCE 1,000 ML BOTTLE GT PRN (16:21)
[2017-11-24] MEDS: LEVOTHYROXINE SODIUM 50 MCG TABLET NG SCH (16:21)
[2017-11-24] MEDS: VIT B CMPLX 3/FA/VIT C/BIOTIN 1 TAB TABLET PO SCH (16:21)
--- NOTE | 2017-11-24 16:31 | NUR ---
RN NOTES COLOSCOPY DONE BY DR COTTO , PT TOLERATED WELL, TF RESTARTED, MEDS RESUMED , CONTINUE TO MONITOR CLOSELY .
--- NOTE | 2017-11-24 18:18 | NUR ---
RECEIVED PT ON SIMV MODE, TRACH AND VARUN WELL. NO RESP DISTRESS NOTED. PT AIRWAY SECURE. BREATH SOUNDS DIM COARSE/ SUCTIONED THICK BISHOP, RED SPECKS WITH SMALL CLOTH MODERATE AMOUNT OF SECRETIONS. VENT ALARMS SET AND AUDIBLE.
--- NOTE | 2017-11-24 18:37 | NUR ---
RN NOTES TRACH SUCTIONING DONE , VSS STABLE , TF NOVASOURCE AT 30CC/HR RUNNING VIA PEG TUBE , SR UP x3, BED LOCKED AND IN LOWEST POSITION , WILL ENDORSE TO SEISMIC INTERPRETER NURSE FOR ANA.
--- NOTE | 2017-11-24 19:30 | NUR ---
PT RCVD ON VENT WITH NOTED SETTINGS. VENTS PLUGGED INTO RED OUTLET, VENT ALARM WORKING AND AUDIBLE. SUCTIONED MODERATE AMOUNT OF BROWN THICK SECRETIONS. BILATERAL BS NOTED, NO RESPIRATORY DISTRESS NOTED AT THIS TIME. WILL CONTINUE TO MONITOR THE PT.
--- NOTE | 2017-11-24 19:55 | NUR ---
RN INITIAL NOTES: RECEIVED REPORT FROM WILL LEVY, PT IN BED, AWAKE, A/O X2, ABLE TO MOUTH WORDS, MECH VENT TRACHE DEPENDENT, WITH THE FF SETTING: SHILEY NUMBER 8, SIMV 400, FIO2 35% PEEP 5, PSI/SUPPORT 12, AMBU BAG AT BED SIDE, ON CONTINUOUS PULSE OX MONITORING, GTUBE IN PLACED, RECEIVING NOVASOURCE RENAL AT 30CC/HR, JO PICC LINE WITH TRIPLE LUMEN CATHETER, ALL WITH GOOD BLOOD RETURN, PATENT AND FLUSHING WELL, ON HL. RIGHT CW LICO CATH IN PLACED, S/P HD TODAY WITH 1.5L OUTPUT, S/P GTUBE PLACEMENT ON 11/23/17, DRESSING ON GTUBE SITE C/D/I. PT HAS BILATERAL SOFT RIST RESTRAINT IN PLACED, RESTRAINTS PROTOCOL FOLLOWED, RADIAL PULSES INTACT AND PALPABLE, GOOD CAPILLARY REFILL NOTED, PT ABLE TO MOVE AND WIGGLE HANDS AND ARMS, NO S/S OF IMPEDIMENT IN CIRCULATION NOTED. SAFETY PRECAUTIONS FOR FALL INITIATED CALL LIGHT IN REACH, WILL CONTINUE TO MONITOR.
[2017-11-24 20:00] VITALS: BP 122/80
--- NOTE | 2017-11-24 20:15 | NUR ---
RN NOTES: NOTED TRACHE SITE DRESSING DIRTY WITH DRY BLOOD, ROTTEN APPEARING, FOUL SMELLING, CALLED RT AND GEOMETRY TEACHER TO TAKE A LOOK, DECIDED TO CLEAN THE SITE AND REMOVED THE OLD DRESSING IT HAS HIGH POTENTIAL FOR INFECTION, RT AND GEOMETRY TEACHER AT BED SIDE FOR HELP, TRACHE TIE WAS CHANGED, PLACED NEW DRESSING WILL NOTIFY MD TO TAKE A LOOK AT THE TRACHE INNER SIDE, THERE'S LIKE A SURGICELL DRESSING UNSURE IF CAN BE TAKEN OUT, NEEDS ORDER.
[2017-11-24] MEDS: SIMVASTATIN 10 MG TABLET NG SCH (21:28)
[2017-11-24] MEDS: INSULIN REGULAR, HUMAN 100 UNIT/ML 3 ML VIAL SQ PRN (21:30)
[2017-11-24] MEDS: Z GUARD REMEDY 2 OZ OINT TP PRN (21:31)
--- NOTE | 2017-11-24 21:31 | NUR ---
RN NOTES: blood sugar checked and result is 190, 3units of insulin given per sliding scale, pt on gtube feeding at 30cc/hr. gastric residual checked obtained 0 ml, medication given as ordered via gtube.abdomen soft to touch with active bowel sound heard upon auscultation
--- NOTE | 2017-11-24 23:00 | NUR ---
RN NOTES: NOTED PERMACATH DRESSING SOILED WITH OLD DRY BLOOD, LAST DRESSING CHANGED WRITTEN ON THE DRESSING/TRANSPARENT FILM WAS 11/18/17, PERFORMED PERMACATH DRESSING CHANGED AT THIS TIME WITH ASSISTANCE FROM GARRETT
[2017-11-25] VITALS (7 sets, daily range): BP systolic 120–137; BP diastolic 83–89
[2017-11-25] MEDS: INSULIN REGULAR, HUMAN 100 UNIT/ML 3 ML VIAL SQ PRN ×5 (01:13→20:13)
[2017-11-25] MEDS: BLOOD SUGAR DIAGNOSTIC 1 EACH STRIP IN SCH ×6 (01:13→20:12)
--- NOTE | 2017-11-25 01:13 | NUR ---
BLOOD SUGAR: BLOOD SUGAR CHECKED AND RESULT IS 122, NO INSULIN GIVEN PER SLIDING SCALE
--- NOTE | 2017-11-25 05:43 | NUR ---
BLOOD SUGAR: CHECKED BLOOD SUGAR RESULT IS 121, NO INSULIN COVERAGE GIVEN PER SLIDING SCALE
--- NOTE | 2017-11-25 06:00 | NUR ---
RN NOTES: CENTRAL LINE CLAVED CHANGED PROVIDED X3 PORT
--- NOTE | 2017-11-25 06:49 | NUR ---
RN CLOSING NOTES: PT IN BED, AWAKE, REMAINS A/O X2, ON MECH VENT TRACHE DEPENDENT, TOLERATED THE SETTINGS WELL. BILATERAL SOFT WRIST RESTRAINT REMAINS IN PLACED, NO S/S OF IMPEDIMENT IN CIRCULATION NOTED. GOOD CAPILLARY REFILL NOTED, RADIAL PULSES PALPABLE, INTACT. BLE OFFLOADED. JO PICC LINE REMAINS PATENT AND FLUSHING WELL, ON HL. PERMACATH IN PLACED. VS REMAINS STABLE, NEEDS ATTENDED. WILL ENDORSE TO DAY RN FOR ANA.
[2017-11-25] MEDS: LEVOTHYROXINE SODIUM 50 MCG TABLET NG SCH (08:10)
[2017-11-25] MEDS: LACTOBACILLUS RHAMNOSUS GG 1 EACH CAP.SPRINK GT SCH ×2 (08:10→17:57)
[2017-11-25] MEDS: VIT B CMPLX 3/FA/VIT C/BIOTIN 1 TAB TABLET PO SCH (08:10)
[2017-11-25] MEDS: Z GUARD REMEDY 2 OZ OINT TP SCH (08:11)
[2017-11-25] MEDS: HYDROGEL DRESSING 90 GM TUBE TP SCH (08:11)
--- NOTE | 2017-11-25 09:17 | NUR ---
PATIENT SCHEDULING MANAGER NOTES RECEIVED REPORT FROM OVI LEVY. WILL CONTINUE TO MONITOR PT CLOSELY.
--- NOTE | 2017-11-25 19:17 | NUR ---
NUCLEAR POWERPLANT MECHANIC NOTES NO ACUTE CHANGES NOTED DURING THE SHIFT. DUE MEDS GIVEN. PROVIDED COMFORT AND SAFETY. ENDORSED TO THE PM NURSE FOR ANA.
--- NOTE | 2017-11-25 20:14 | NUR ---
PT ON VENT. NO RESPIRATORY DISTRESS NOTED AT THIS TIME. VENT PLUGGED INTO RED OUTLET, VENT ALARMS TESTED FOUND TO BE ON AUDIBLE AND WITHIN LIMITS. PT TRACH SX PRN. BREATHING TX GIVEN PER MD'S ORDERED. NO ADVERSE REACTION AT THIS TIME. SUCTIONED PRN. NO RESPIRATORY DISTRESS NOTED AT THIS TIME. WILL CONTINUE TO MONITOR THE PT.
[2017-11-25] MEDS: SIMVASTATIN 10 MG TABLET NG SCH (23:26)
--- NOTE | 2017-11-25 23:48 | NUR ---
RN NOTES GIVEN REPORT AND PATIENT TO CAM LOPES
[2017-11-26] VITALS (7 sets, daily range): BP systolic 118–140; BP diastolic 80–95
--- NOTE | 2017-11-26 | NUR ---
GENERAL SURGEON NOTES RECEIVED PATIENT FROM CAM TRIMBLE IN STABLE CONDITION. PATIENT IS IN BED, AWAKE, ALERT AND ORIENTED X2. PATIENT IS ON MECH VENT TRACH DEPENDENT. BILATERAL SOFT WRIST RESTRAINT REMAINS IN PLACED. JO PICC LINE IS PATENT AND INTACT. PERMACATH IN PLACED. BED IN LOW AND LOCKED POSITION, SIDE RAILSX2. CALL LIGHT WITHIN EASY REACH. WILL CONTINUE TO MONITOR.
[2017-11-26] MEDS: BLOOD SUGAR DIAGNOSTIC 1 EACH STRIP IN SCH ×6 (01:01→21:38)
--- NOTE | 2017-11-26 01:04 | NUR ---
RN NOTES BS 111. NO INSULIN ADMINISTERED. WILL CONTINUE TO MONITOR.
[2017-11-26] MEDS: INSULIN REGULAR, HUMAN 100 UNIT/ML 3 ML VIAL SQ PRN ×3 (05:31→21:39)
[2017-11-26] MEDS: RENAL NOVASOURCE 1,000 ML BOTTLE GT PRN (06:15)
--- NOTE | 2017-11-26 07:15 | NUR ---
television news reporter initial notes Received patient in bed, awake, head of bed elevated, no SOB or distress noted, on mechanical vent with 02 saturation of 100%. No facial grimcae noted, patient able to mouth words. Right chest wall permacath with dressing intact. JO picc line in placed and patent. On tele monitor SR heart rate of 92. Kept patient clean and comfortable in bed,c all light with in patient reach, will continue to monitor accordingly.
--- NOTE | 2017-11-26 07:30 | NUR ---
RN CLOSING NOTES PATIENT IS IN BED, AWAKE, ALERT AND ORIENTED X2. PATIENT IS ON MECH VENT TRACH DEPENDENT. BILATERAL SOFT WRIST RESTRAINT REMAINS IN PLACED. JO PICC LINE IS PATENT AND INTACT. PERMACATH IN PLACED. ALL NEEDS ARE MET AND MEDICATIONS GIVEN PER MD ORDER.BED IN LOW AND LOCKED POSITION, SIDE RAILSX2. CALL LIGHT WITHIN EASY REACH. WILL ENDORSE TO RN DAY SHIFT FOR ANA.
[2017-11-26] MEDS: LEVOTHYROXINE SODIUM 50 MCG TABLET NG SCH (08:14)
[2017-11-26] MEDS: LACTOBACILLUS RHAMNOSUS GG 1 EACH CAP.SPRINK GT SCH ×2 (08:14→16:42)
[2017-11-26] MEDS: MORPHINE SULFATE INJ 4 MG/ML DISP.SYRIN IM PRN ×2 (08:14→13:51)
[2017-11-26] MEDS: VIT B CMPLX 3/FA/VIT C/BIOTIN 1 TAB TABLET PO SCH (08:14)
[2017-11-26] MEDS: HYDROGEL DRESSING 90 GM TUBE TP SCH (08:15)
[2017-11-26] MEDS: Z GUARD REMEDY 2 OZ OINT TP SCH (08:15)
[2017-11-26 15:52] LABS: EOSINOPHILS # (AUTO) 0.1 /CMM (0.0-0.7); EOSINOPHILS % (AUTO) 0.8 % (0.0-6.0); HEMATOCRIT 24 % (33-45); HEMOGLOBIN 7.9 g/dL (11.5-14.8); LYMPHOCYTES # (AUTO) 0.9 /CMM (0.8-4.8); LYMPHOCYTES % (AUTO) 8.1 % (20.0-44.0); MEAN CORPUSCULAR HEMOGLOBIN 31 PG (26.0-33.0); MEAN CORPUSCULAR HGB CONC 34 g/dl (31.0-36.0); MEAN CORPUSCULAR VOLUME 93 fL (82-100); MONOCYTES # (AUTO) 0.7 /CMM (0.1-1.30); MONOCYTES % (AUTO) 6.8 % (2.0-12.0); NEUTROPHILS # (AUTO) 9.2 /CMM (1.8-8.9); NEUTROPHILS % (AUTO) 84.3 % (43.0-81.0); PLATELET COUNT (AUTO) 61 /CMM (150-450); RDW COEFFICIENT OF VARIATION 18.6 (11.5-15.0); RED BLOOD CELL COUNT(AUTO) 2.55 MIL/uL (4.0-5.2); WHITE BLOOD COUNT (AUTO) 10.9 K/uL (4.3-11.0)
[2017-11-26 16:09] LABS: POTASSIUM 3.6 mmol/L (3.5-5.1)
[2017-11-26 16:10] LABS: CALCIUM, SERUM 8.5 mg/dL (8.5-10.1); CREATININE 1.5 mg/dL (0.6-1.3)
--- NOTE | 2017-11-26 16:42 | NUR ---
DOORS PREFITTER NOTE Blood sugar checked 98 no coverage given.
[2017-11-26 17:02] LABS: BAND % (MANUAL) 4 % (0.0-5.0); EOSINOPHILS % (MANUAL) 2 % (0-4); LYMPHOCYTES % (MANUAL) 8 % (16-48); MONOCYTES % (MANUAL) 2 % (0-11.0); NEUTROPHILS % (MANUAL) 84 (42-76)
--- NOTE | 2017-11-26 19:23 | NUR ---
television operator closing notes All needs provided, attended, and anticipated, kept patient clean and comfortable in bed, call light with in patient reach, endorsed to next shift RN to continue care.
--- NOTE | 2017-11-26 19:40 | NUR ---
CONTINUITY READER NOTES, RECEIVED PATIENT IN BED, IN VENT SETTINGS, NO/S OF SOB OR ACUTE DISTRESS AT THIS TIME, SATURATING AT 100% AT THIS TIME, NOTED DRY AND CLEAN AT THIS TIME, JO PICC LINE INTACT AND PATENT, RIGHT CHEST WALL PERM CATH INTACT, NO ABNORMALITY NOTED, NO BLEEDING OR DISCHARGE NOTED, BED LOCKED AN IN LOWEST POSITION, CALL LIGHT W/I REACH, WILL CONTINUE TO MONITOR CLOSELY.
[2017-11-26] MEDS: SIMVASTATIN 10 MG TABLET NG SCH (21:40)
[2017-11-27] VITALS: BP 136/93
--- NOTE | 2017-11-27 00:30 | NUR ---
BLOCK CUTTER NOTES, ENDORSE PATIENT CONTINUATION OF CARE TO CAM GARCIA, PATIENT IN STABLE CONDITION AT THIS TIME WITH STABLE VS.
[2017-11-27] MEDS: BLOOD SUGAR DIAGNOSTIC 1 EACH STRIP IN SCH ×4 (00:55→12:38)
[2017-11-27 04:00] VITALS: BP 136/83
[2017-11-27] MEDS: INSULIN REGULAR, HUMAN 100 UNIT/ML 3 ML VIAL SQ PRN ×2 (05:13→09:06)
--- NOTE | 2017-11-27 06:35 | NUR ---
MANUFACTURING ENGINEERING MANAGER CLOSING NOTES PT IN BED AWAKE, RESPONSIVE, VENT DEPENDENT. TRACH PATENT, RESPIRATIONS EVEN, UNLABORED, NO APPARENT DISTRESS NOTED. GT IN PLACE 1ML RESIDUAL NOTED, TOLERATES GTF WELL HOB ELEVATED. JO PICC LINE INTACT, PATENT .RT CHEST LICO CATH DRESSING INTACT., NO REDNESS, NO SWELLING NOTED. NO S/SX OF PAIN OR DISCOMFORT NOTED AT THIS TIME AT THIS TIME. BED LOCKED IN LOWEST POSITION. KEPT CLEAN AND COMFORTABLE, ATTENDED ALL NEEDS. WILL CONTINUE TO MONITOR ACCORDINGLY.
[2017-11-27 06:52] LABS: BASOPHILS % (AUTO) 0.1 % (0.0-2.0); EOSINOPHILS % (AUTO) 0.2 % (0.0-6.0); HEMATOCRIT 23 % (33-45); HEMOGLOBIN 7.7 g/dL (11.5-14.8); LYMPHOCYTES # (AUTO) 0.8 /CMM (0.8-4.8); LYMPHOCYTES % (AUTO) 7.9 % (20.0-44.0); MEAN CORPUSCULAR HEMOGLOBIN 31 PG (26.0-33.0); MEAN CORPUSCULAR HGB CONC 33 g/dl (31.0-36.0); MEAN CORPUSCULAR VOLUME 94 fL (82-100); MONOCYTES # (AUTO) 0.7 /CMM (0.1-1.30); MONOCYTES % (AUTO) 6.8 % (2.0-12.0); NEUTROPHILS # (AUTO) 8.8 /CMM (1.8-8.9); PLATELET COUNT (AUTO) 52 /CMM (150-450); RDW COEFFICIENT OF VARIATION 20.1 (11.5-15.0); RED BLOOD CELL COUNT(AUTO) 2.46 MIL/uL (4.0-5.2); WHITE BLOOD COUNT (AUTO) 10.4 K/uL (4.3-11.0)
[2017-11-27 07:21] LABS: CALCIUM, SERUM 8.3 mg/dL (8.5-10.1); CREATININE 1.7 mg/dL (0.6-1.3); MAGNESIUM 2.2 mg/dL (1.8-2.4); PHOSPHORUS 3.6 mg/dL (2.5-4.9); POTASSIUM 3.3 mmol/L (3.5-5.1)
--- NOTE | 2017-11-27 07:22 | NUR ---
RN NOTES RECEIVED PT FROM LIGHT BULB TESTER, A&0X1-2 ABLE TO MOUTH OUT WORDS. VENT/TRACH DEPENDENT TOLERATING VENT SETTINGS NO SOB OR DISTRESS NOTED. SR ON THE TELE DAYANNA HR 91. GTF AT 30ML/HR. MERVIN WRIST RESTRAINTS ON PT, DUE TO ATTEMPTS TO REMOVE TRACH. JO PICC LINE DRESSING DRY AND INTACT NO IVF. BED LOCKED AND IN LOWEST POSITION, CALL LIGHT WITHIN REACH, WILL CONT TO DAYANNA.
[2017-11-27 08:00] VITALS: BP 135/95
[2017-11-27] MEDS: VIT B CMPLX 3/FA/VIT C/BIOTIN 1 TAB TABLET PO SCH (08:56)
[2017-11-27] MEDS: LEVOTHYROXINE SODIUM 50 MCG TABLET NG SCH (08:56)
[2017-11-27] MEDS: LACTOBACILLUS RHAMNOSUS GG 1 EACH CAP.SPRINK GT SCH (08:56)
[2017-11-27] MEDS: Z GUARD REMEDY 2 OZ OINT TP SCH (08:57)
[2017-11-27] MEDS: HYDROGEL DRESSING 90 GM TUBE TP SCH (08:58)
[2017-11-27 10:07] LABS: BAND % (MANUAL) 5 % (0.0-5.0); LYMPHOCYTES % (MANUAL) 10 % (16-48); MONOCYTES % (MANUAL) 6 % (0-11.0); NEUTROPHILS % (MANUAL) 79 (42-76)
[2017-11-27] MEDS ORDERED: ALLA266C2 TP (11:36)
[2017-11-27] MEDS ORDERED: Hydrogel Dressing TP (11:36)
[2017-11-27 12:00] VITALS: BP 137/92
[2017-11-27] MEDS ORDERED: POTASSIUM CHLORIDE 20 MEQ POWDER PACKET NG SCH (12:30)
[2017-11-27] MEDS: DEXTROSE 50%-WATER 50 ML DISP.SYRIN IV PRN (12:35)
--- NOTE | 2017-11-27 16:09 | NUR ---
RN NOTES PT DISCHARGED IN STABLE CONDITION, REPORT GIVEN TO MARIZA.
== END 2017-11-27 16:10 | DRG 5 ==
LOC: ER 10:35 → ICU 14:09 → TELE-TD 11-23 11:35 → MEDSG1 11-24 10:16 → TELE1 11-24 17:13
PROVIDERS: ADMIT Internal Medicine Nephrology; ATTEND Internal Medicine Nephrology
PROC: B548ZZA Ultrasonography of Superior Vena Cava, Guidance (ICD-10-PCS; principal; 2017-11-06)
PROC: 02HV33Z Insertion of Infusion Device into Superior Vena Cava, Percutaneous Approach (ICD-10-PCS; principal; 2017-11-06)
PROC: 0BH18EZ Insertion of Endotracheal Airway into Trachea, Via Natural or Artificial Opening Endoscopic (ICD-10-PCS; principal; 2017-11-06)
PROC: 5A1955Z Respiratory Ventilation, Greater than 96 Consecutive Hours (ICD-10-PCS; principal; 2017-11-06)
PROC: 30233R1 Transfusion of Nonautologous Platelets into Peripheral Vein, Percutaneous Approach (ICD-10-PCS; 2017-11-07)
PROC: 30233N1 Transfusion of Nonautologous Red Blood Cells into Peripheral Vein, Percutaneous Approach (ICD-10-PCS; 2017-11-07)
PROC: 5A1D70Z Performance of Urinary Filtration, Intermittent, Less than 6 Hours Per Day (ICD-10-PCS; 2017-11-07)
PROC: 5A1D70Z Performance of Urinary Filtration, Intermittent, Less than 6 Hours Per Day (ICD-10-PCS; 2017-11-09)
PROC: 5A1D70Z Performance of Urinary Filtration, Intermittent, Less than 6 Hours Per Day (ICD-10-PCS; 2017-11-11)
PROC: 5A1D70Z Performance of Urinary Filtration, Intermittent, Less than 6 Hours Per Day (ICD-10-PCS; 2017-11-13)
PROC: 02HV33Z Insertion of Infusion Device into Superior Vena Cava, Percutaneous Approach (ICD-10-PCS; 2017-11-14)
PROC: B548ZZA Ultrasonography of Superior Vena Cava, Guidance (ICD-10-PCS; 2017-11-14)
PROC: 5A1D70Z Performance of Urinary Filtration, Intermittent, Less than 6 Hours Per Day (ICD-10-PCS; 2017-11-14)
PROC: 5A1955Z Respiratory Ventilation, Greater than 96 Consecutive Hours (ICD-10-PCS; 2017-11-15)
PROC: 0BH18EZ Insertion of Endotracheal Airway into Trachea, Via Natural or Artificial Opening Endoscopic (ICD-10-PCS; 2017-11-15)
PROC: 5A1D70Z Performance of Urinary Filtration, Intermittent, Less than 6 Hours Per Day (ICD-10-PCS; 2017-11-16)
PROC: 5A1D70Z Performance of Urinary Filtration, Intermittent, Less than 6 Hours Per Day (ICD-10-PCS; 2017-11-19)
PROC: 5A1D70Z Performance of Urinary Filtration, Intermittent, Less than 6 Hours Per Day (ICD-10-PCS; 2017-11-20)
PROC: 0B113F4 Bypass Trachea to Cutaneous with Tracheostomy Device, Percutaneous Approach (ICD-10-PCS; 2017-11-22)
PROC: 0DH63UZ Insertion of Feeding Device into Stomach, Percutaneous Approach (ICD-10-PCS; 2017-11-22)
PROC: 30233K1 Transfusion of Nonautologous Frozen Plasma into Peripheral Vein, Percutaneous Approach (ICD-10-PCS; 2017-11-22)
PROC: 5A1D70Z Performance of Urinary Filtration, Intermittent, Less than 6 Hours Per Day (ICD-10-PCS; 2017-11-22)
PROC: 0DJD8ZZ Inspection of Lower Intestinal Tract, Via Natural or Artificial Opening Endoscopic (ICD-10-PCS; 2017-11-24)
PROC: 5A1D70Z Performance of Urinary Filtration, Intermittent, Less than 6 Hours Per Day (ICD-10-PCS; 2017-11-24)
PROC: 5A1D70Z Performance of Urinary Filtration, Intermittent, Less than 6 Hours Per Day (ICD-10-PCS; 2017-11-26)
DX: A41.9 Sepsis, unspecified organism (principal); R65.21 Severe sepsis with septic shock; J69.0 Pneumonitis due to inhalation of food and vomit; I13.2 Hypertensive heart and chronic kidney disease with heart failure and with stage 5 chronic kidney disease, or end stage renal disease; L89.153 Pressure ulcer of sacral region, stage 3; N18.6 End stage renal disease; D68.9 Coagulation defect, unspecified; E44.0 Moderate protein-calorie malnutrition; R18.8 Other ascites; J96.01 Acute respiratory failure with hypoxia; E87.2 Acidosis; E46 Unspecified protein-calorie malnutrition; E11.22 Type 2 diabetes mellitus with diabetic chronic kidney disease; E11.42 Type 2 diabetes mellitus with diabetic polyneuropathy; N39.0 Urinary tract infection, site not specified; E03.9 Hypothyroidism, unspecified; D69.2 Other nonthrombocytopenic purpura; I50.9 Heart failure, unspecified; E78.5 Hyperlipidemia, unspecified; K21.9 Gastro-esophageal reflux disease without esophagitis; K64.8 Other hemorrhoids; Z99.2 Dependence on renal dialysis; S41.112A Laceration without foreign body of left upper arm, initial encounter; Z89.411 Acquired absence of right great toe; R13.10 Dysphagia, unspecified; K76.0 Fatty (change of) liver, not elsewhere classified; E83.9 Disorder of mineral metabolism, unspecified; I83.009 Varicose veins of unspecified lower extremity with ulcer of unspecified site; L97.919 Non-pressure chronic ulcer of unspecified part of right lower leg with unspecified severity; D64.9 Anemia, unspecified; B96.20 Unspecified Escherichia coli [E. coli] as the cause of diseases classified elsewhere; D69.59 Other secondary thrombocytopenia; S41.111A Laceration without foreign body of right upper arm, initial encounter; X58.XXXA Exposure to other specified factors, initial encounter; Y93.9 Activity, unspecified; Y92.129 Unspecified place in nursing home as the place of occurrence of the external cause; K57.90 Diverticulosis of intestine, part unspecified, without perforation or abscess without bleeding; E11.649 Type 2 diabetes mellitus with hypoglycemia without coma; K62.5 Hemorrhage of anus and rectum; Z87.11 Personal history of peptic ulcer disease; Z16.12 Extended spectrum beta lactamase (ESBL) resistance
CPT/HCPCS: 31720; 36415; 36569; 36600; 43246; 70450-TC; 71045-TC; 73502; 74178; 76700-TC; 76770-TC; 80048-TC; 80053-TC; 80076-TC; 80202-TC; 81000-TC; 82140-TC; 82272-TC; 82306; 82728-TC; 82746; 82803-TC; 82962-TC; 83010; 83540-TC; 83605-TC; 83615-TC; 83735-TC; 83880; 84100-TC; 84443-TC; 84478-TC; 85025-TC; 85027-TC; 85396; 85610-TC; 85652-TC; 85730-TC; 86704; 86705; 86706; 86803; 86850-TC; 86921-TC; 87040-TC; 87081-TC; 87086-TC; 87186-TC; 87340; 90935-TC; 92611-TC; 94002-TC; 94003-TC; 94760-TC; 94762-TC; 99082-TC; A4216; A4606; A6248; A6253; A6402; A6403; A7526; A9563; C1751; C1769; C9113; J0330; J0885; J1815; J1956; J2185; J2270; J2543; J2597; J2704; J3010; J3370; J3430; J3475; J3490; J7030; J7040; J7042; J7050; J7060; J7070; P9016-BL; P9017-BL; P9034-BL; P9047; Q9967; Z7610

== ENCOUNTER 2017-12-03 15:23 | Inpatient (IN) | payer OTHER ==
[~2017-12-03] VITALS: Ht 152.4 cm; Wt 46.7 kg
[~2017-12-03 15:23] MED LIST: ACET-868 PO; ALLA266C2 TP; ASCO500T9 PO; BISA10SU8 RC; EPOE1VIA7 SQ; ERGO500040 PO; FERR325T23 PO; FLUO20CA36 PO; Hydrogel Dressing TP; INSU100I14 SQ; IPRA3AMP IH; LEVO50TA8 PO; MAGN400O6 PO; MAGN400T6 PO; MULT-213 PO; NA P133E RC; ONDA4TAB5 PO; SIMV10TA6 PO; SUCR1TAB PO
--- NOTE | 2017-12-03 15:30 | NUR ---
PT BIBRA FROM [facility] TO ER BED 11. HERE FOR POSSIBLE G TUBE REPLACEMENT. PER REPORT, LEAKAGE NOTED. VENT DEPENDENT W/ CURRENT SETTING, AC 16 FIO2 400 T V 35% PEEP 5. STABLE VITALS. PT IS CONFUSED TRYING TO PULL OUT TUBES. AWAITING MD DANIELS.
[2017-12-03 16:20] VITALS: BP 124/95
--- NOTE | 2017-12-03 16:20 | NUR ---
RT PATIENT REC'D TRACHED ON [facility] VENT WITH SETTINGS PROVIDED BY TRANSPORT TEAM. VENT ALARMS CHECKED + AUDIBLE. BRIANU BAG AT HOB Addendum: 12/03/17 at 1713 by LIZZIE BLANTON RT Amended: Links added.
--- NOTE | 2017-12-03 17:20 | NUR ---
DR NEELY BACK AT BEDSIDE FOR G TUBE REPLACEMENT 22F INSERTED BY MD NEELY. AWAITING ABDOMINAL KUB FOR PLACEMENT CONFIRMATION.
[2017-12-03] MEDS ORDERED: DIATR MEGLU/DIATRIZOATE SODIUM 30 ML BOTTLE (GASTROGRAPHIN) ONE (17:33)
--- NOTE | 2017-12-03 17:38 | NUR ---
RADIOLOGY AT BEDSIDE FOR ABDOMINAL XRAY POST G TUBE REPLACEMENT.
[2017-12-03 17:58] VITALS: BP 118/95
[2017-12-03 19:30] LABS: INR 1.41 (0.85-1.15)
[2017-12-03] MEDS ORDERED: NUT.237L67 GT (19:30)
--- NOTE | 2017-12-03 19:35 | NUR ---
ACCOMPANIED PT TO RADIOLOGY FOR ABDOMINAL CT SCAN VIA GURNEY.
[2017-12-03 19:36] LABS: CALCIUM, SERUM 8.4 mg/dL (8.5-10.1); CREATININE 1.7 mg/dL (0.6-1.3); POTASSIUM 3.6 mmol/L (3.5-5.1)
[2017-12-03 19:41] LABS: ALBUMIN 2.2 g/dL (3.4-5.0); BILIRUBIN,TOTAL 1.7 mg/dL (0.2-1.0)
[2017-12-03 19:59] LABS: HEMATOCRIT 27 % (33-45); HEMOGLOBIN 9.3 g/dL (11.5-14.8); MEAN CORPUSCULAR HEMOGLOBIN 32 PG (26.0-33.0); MEAN CORPUSCULAR HGB CONC 34 g/dl (31.0-36.0); MEAN CORPUSCULAR VOLUME 94 fL (82-100); RED BLOOD CELL COUNT(AUTO) 2.92 MIL/uL (4.0-5.2); WHITE BLOOD COUNT (AUTO) 9.6 K/uL (4.3-11.0)
[2017-12-03 20:00] LABS: BASOPHILS % (AUTO) 0.3 % (0.0-2.0); EOSINOPHILS % (AUTO) 0.1 % (0.0-6.0); LYMPHOCYTES # (AUTO) 0.2 /CMM (0.8-4.8); LYMPHOCYTES % (AUTO) 1.7 % (20.0-44.0); MONOCYTES % (AUTO) 0.5 % (2.0-12.0); NEUTROPHILS # (AUTO) 9.4 /CMM (1.8-8.9); NEUTROPHILS % (AUTO) 97.4 % (43.0-81.0); PLATELET COUNT (AUTO) 19 /CMM (150-450)
[2017-12-03 21:09] LABS: BAND % (MANUAL) 16 % (0.0-5.0); LYMPHOCYTES % (MANUAL) 5 % (16-48); MONOCYTES % (MANUAL) 5 % (0-11.0); NEUTROPHILS % (MANUAL) 74 (42-76)
--- NOTE | 2017-12-03 21:13 | NUR ---
DR MIKE PINK PAGED PER DR NEELY
[2017-12-03] MEDS ORDERED: PIPERACILLIN /TAZOBACTAM 2.25 G in IV D5W 50 ML IV ONE (21:30)
--- NOTE | 2017-12-03 22:20 | NUR ---
REPORT TO RHYS LEVY. PT AWAITING TRANSFER TO FLOOR.
--- NOTE | 2017-12-03 22:45 | NUR ---
BUSINESS SERVICES SPECIALIST SALES NOTE: RECEIVED PATIENT FROM ER, NO ACUTE DISTRESS NOTED. RT AT BEDSIDE WITH VENT SETTINGS FOLLOWS, SHILEY #8, AC 16, FIO2 35%, TV 400, PEEP 5. NO SOB NOTED. TELE READING SR 64. IV TO LAC IN PLACE. NOTED WITH WOUNDS, PICTURES TO BE TAKEN. ISOLATION PRECAUTION OBSERVED. BED LOCKED AND IN LOWEST POSITION, CALL LIGHT IN REACH. WILL CONTINUE TO MONITOR.
[2017-12-03 23:00] VITALS: BP 144/79
[2017-12-03] MEDS ORDERED: ONDANSETRON HCL/PF 4 MG/2 ML VIAL IV PRN (23:00)
[2017-12-03] MEDS ORDERED: ACETAMINOPHEN 650 MG/SUPP.RECT RC PRN (23:00)
[2017-12-03 23:25] VITALS: BP 118/95
[2017-12-03 23:30] VITALS: BP 144/79
[2017-12-04] MEDS: IV D5/0.45 NACL 1,000 ML IV SCH ×2 (00:31→18:17)
[2017-12-04] MEDS: PANTOPRAZOLE 40 MG VIAL IV SCH ×2 (00:31→23:01)
[2017-12-04 04:00] VITALS: BP 109/72
[2017-12-04] MEDS ORDERED: PIPERACILLIN /TAZOBACTAM 3.375 G in IV D5W 50 ML IV SCH (05:00)
[2017-12-04] MEDS ORDERED: PIPERACILLIN /TAZOBACTAM 3.375 G VIAL IV ONE (05:09)
--- NOTE | 2017-12-04 05:45 | NUR ---
GERM DRIER NOTE: PATIENT IV TO LAC LEAKING, TRIED TO START NEW IV X3 ATTEMPTS WITHOUT SUCCESS. WILL ENDORSE TO DAY NURSE TO TRY AGAIN.
--- NOTE | 2017-12-04 06:15 | NUR ---
HAND ENDBAND CUTTER NOTE: PATIENT RESTING IN BED, NO ACUTE DISTRESS NOTED. BREATHING EVEN AND UNLABORED, VENT SETTING IN PLACE, NO SOB NOTED. TELE READING SR 60. ISOLATION PRECAUTION OBSERVED. BED LOCKED AND IN LOWEST POSITION, CALL LIGHT IN REACH. WILL ENDORSE TODAY NURSE TO CONTINUE WITH PLAN OF CARE.
[2017-12-04 08:00] VITALS: BP 111/72
[2017-12-04 08:06] LABS: EOSINOPHILS % (AUTO) 0.2 % (0.0-6.0); HEMATOCRIT 25 % (33-45); HEMOGLOBIN 8.5 g/dL (11.5-14.8); LYMPHOCYTES # (AUTO) 0.4 /CMM (0.8-4.8); LYMPHOCYTES % (AUTO) 3.1 % (20.0-44.0); MEAN CORPUSCULAR HEMOGLOBIN 32 PG (26.0-33.0); MEAN CORPUSCULAR HGB CONC 34 g/dl (31.0-36.0); MEAN CORPUSCULAR VOLUME 95 fL (82-100); MONOCYTES # (AUTO) 0.2 /CMM (0.1-1.30); MONOCYTES % (AUTO) 2.1 % (2.0-12.0); NEUTROPHILS # (AUTO) 10.9 /CMM (1.8-8.9); NEUTROPHILS % (AUTO) 94.6 % (43.0-81.0); RDW COEFFICIENT OF VARIATION 22.9 (11.5-15.0); RED BLOOD CELL COUNT(AUTO) 2.65 MIL/uL (4.0-5.2); WHITE BLOOD COUNT (AUTO) 11.6 K/uL (4.3-11.0)
[2017-12-04 08:15] LABS: CALCIUM, SERUM 8.1 mg/dL (8.5-10.1); CREATININE 1.9 mg/dL (0.6-1.3); MAGNESIUM 2.7 mg/dL (1.8-2.4); PHOSPHORUS 2.8 mg/dL (2.5-4.9); POTASSIUM 2.9 mmol/L (3.5-5.1)
--- NOTE | 2017-12-04 08:15 | NUR ---
ms rn received on bed, lethargic,came in w/ g tube malfunction, no iv access,on bilateral soft wrist restraint, abdomen w/ dressing slightly soak w/ slight yellowish drainage, noted to have sacral wound, on first step kci mattress. will monitor patient's condition.
--- NOTE | 2017-12-04 08:30 | NUR ---
ms rn' trying to put iv access, recieved a critical glucose level of 29, rhona will insert central line.
--- NOTE | 2017-12-04 08:35 | NUR ---
ms obi lopezgoconstance im given at this time.
[2017-12-04] MEDS ORDERED: GLUCAGON,HUMAN RECOMBINANT 1 MG/VIAL VIAL ONE (08:40)
--- NOTE | 2017-12-04 08:40 | NUR ---
ms rn glucose rechecked still low recorder.
[2017-12-04] MEDS ORDERED: DEXTROSE 50%-WATER 50 ML DISP.SYRIN ONE ×2 (08:50→08:54)
--- NOTE | 2017-12-04 08:50 | NUR ---
ms rn 2 d50 ivp given throung cvc hd access.
--- NOTE | 2017-12-04 08:55 | NUR ---
ms rn bs rechecked - 485 - dr. payne is aware.
[2017-12-04] MEDS ORDERED: GLUCAGON,HUMAN RECOMBINANT 1 MG/VIAL VIAL IV ONE (09:00)
[2017-12-04 09:09] LABS: PLATELET COUNT (AUTO) 9 /CMM (150-450)
--- NOTE | 2017-12-04 09:30 | NUR ---
ms obi a critical platelet result received from lab - [address] luis is aware.
--- NOTE | 2017-12-04 11:14 | NUR ---
WOUND CARE CONSULT: PT NOT SEEN FOR SKIN ASSESSMENT DUE TO DIALYSIS AT THIS TIME. PER NURSING DOCUMENTATION THERE IS FULL THICKNESS SACRAL ULCER, PRESENT ON ADMISSION. RECOMMENDATIONS MADE BASED ON PHOTO DOCUMENTATION. PT ON SHAWNA ISOFLEX LOW AIRLOSS BED. ALL SKIN PROTECTION RECOMMENDATIONS DISCUSSED WITH NURSING STAFF. WILL SEE PRN. IN AGREEMENT WITH PLAN OF CARE. RECOMMEND SURGICAL CONSULT.
[2017-12-04] MEDS ORDERED: HYDROGEL DRESSING 90 GM TUBE TP PRN (11:30)
[2017-12-04] MEDS ORDERED: ALBUMIN 25% 25 GM in PREMIX 1 EA IV ONE (11:30)
[2017-12-04] MEDS: Z GUARD REMEDY 2 OZ OINT TP SCH (11:30)
[2017-12-04 11:59] LABS: BAND % (MANUAL) 11 % (0.0-5.0); LYMPHOCYTES % (MANUAL) 7 % (16-48); MONOCYTES % (MANUAL) 1 % (0-11.0); NEUTROPHILS % (MANUAL) 81 (42-76)
[2017-12-04] MEDS ORDERED: PIPERACILLIN /TAZOBACTAM 2.25 G in IV D5W 50 ML IV SCH (12:00)
[2017-12-04] MEDS ORDERED: MORPHINE SULFATE INJ 2 MG/ML DISP.SYRIN IV PRN (13:00)
[2017-12-04] MEDS ORDERED: EPOETIN ALFA (10,000 UNIT) 10,000 UNIT/ML VIAL SQ ONE (13:00)
--- NOTE | 2017-12-04 14:00 | NUR ---
ms rn platelet still not available, per lab,needs to order outside.
--- NOTE | 2017-12-04 15:00 | NUR ---
ms rn was seen by dr. mckeon,all needs attended.
[2017-12-04 16:00] VITALS: BP 106/69
--- NOTE | 2017-12-04 16:55 | NUR ---
ms corn sheller operator nurse followed up platelet, was ordered outside.
--- NOTE | 2017-12-04 17:59 | NUR ---
ms rn been trying to reach the daughter for consent for transfussion.
[2017-12-04] MEDS: BLOOD SUGAR DIAGNOSTIC 1 EACH STRIP IN SCH ×4 (18:00→23:34)
[2017-12-04] MEDS ORDERED: INSULIN REGULAR, HUMAN 100 UNIT/ML 3 ML VIAL SQ PRN (18:00)
[2017-12-04] MEDS ORDERED: DEXTROSE 50%-WATER 50 ML DISP.SYRIN IV PRN (18:00)
[2017-12-04] MEDS: HYDROGEL DRESSING 90 GM TUBE TP SCH (18:20)
[2017-12-04] MEDS: Z GUARD REMEDY 2 OZ OINT TP PRN (18:20)
--- NOTE | 2017-12-04 18:45 | NUR ---
Patient was last discharged 11/27/17.Patient currently resides at [facility] [phone]. Trach/vent dependent. She gets her hemodialysis every TTH at [facility] [phone]. Current plan is to dc back to [facility] once discharge. Addendum: 12/04/17 at 1845 by FLACO IZQUIERDO RN Amended: Links added.
--- NOTE | 2017-12-04 19:30 | NUR ---
TELE/RN OPENING NOTES PT RECEIVED RESTING IN BED. OPENS EYES, NON VERBAL. VENT DEPENDENT WITH SETTINGS NOTED. SON RUBY [phone] AT BEDSIDE. TRIPLE LUMEN IV TO RIGHT FEMORAL RUNNING IVF ORDERED. GOOD BLOOD RETURN NOTED. PRESSURE DRESSING APPLIED. RCW HD CATH DRESSING IN PLACE C/D/I. GT SITE COVERED WITH DRESSING WHICH IS ALSO C/D/I. PER DAY SHIFT RN, UNABLE TO INFUSE 1 UNIT OF PLATELETS DUE TO INABILITY TO SCAN BARCODE. WILL FOLLOW UP AND CONTINUE TO MONITOR FOR BLEEDING. BED IN LOW/LOCKED POSITION WITH CALL LIGHT IN REACH. SIDE RAILS UPX2. WILL CONTINUE TO MONITOR
--- NOTE | 2017-12-04 19:31 | NUR ---
TELE/RN NOTES ON TELE MONITOR SHOWING SR WITH HR 65
[2017-12-04 20:00] VITALS: BP 99/65
--- NOTE | 2017-12-04 20:38 | NUR ---
TELE/RN NOTES PER DAY SHIFT RN, UNABLE TO INFUSE 1 UNIT OF PLATELETS DUE TO INABILITY TO SCAN IN COMPUTER. RECEIVED CALL FROM [facility] AND SAID THEY ARE AWAITING NEW UNIT WHICH WILL TAKE 2 HOURS. CAN INFUSE 1 UNIT OF PLATELETS AVAILABLE NOW WITH DOWNTIME FORM. FIELD REPORTER MADE AWARE. CONFIRMED COMPATIBILITY WITH JEANETTE AND BROUGHT 1 UNIT UP TO FLOOR. VERIFIED PT INFORMATION WITH ANOTHER RN. BEGAN INFUSION @ 2030. WILL MONITOR FOR ADVERSE REACTIONS.
--- NOTE | 2017-12-04 22:27 | NUR ---
TELE/RN NOTES SPOKE TO DR. CANCHOLA. INFORMED HIM OF PT'S RECTAL TEMP OF 94.0F. ORDERED MOLINA MILLS, BLOOD CX, URINALYSIS AND URINE CX. ALSO INFORMED HIM OF PT PLATELETS OF 9 THIS AM AND INFUSED 1 UNIT OF PRBC'S. NO ADDITIONAL ORDERS TO RECHECK PLATELETS OR GIVE ADDITIONAL UNIT OF PLATELETS TONIGHT. WITH ORDERS TO CHECK CBC IN AM ALONG WITH CHEST XR AND TSH IN AM. ORDERS NOTED AND READBACK PER PROTOCOL. Addendum: 12/05/17 at 1956 by ANTOINE MARTIN RN 1 UNIT OF PLATELETS* NOT PRBC'S
[2017-12-04] MEDS: DEXTROSE 50%-WATER 50 ML DISP.SYRIN IV PRN (23:21)
[2017-12-05] VITALS (15 sets, daily range): BP systolic 100–126; BP diastolic 44–91
[2017-12-05] MEDS: IV D5/0.45 NACL 1,000 ML IV PRN (02:48)
[2017-12-05] MEDS: BLOOD SUGAR DIAGNOSTIC 1 EACH STRIP IN SCH ×5 (06:00→23:30)
[2017-12-05 06:54] LABS: CALCIUM, SERUM 7.8 mg/dL (8.5-10.1); CREATININE 1.6 mg/dL (0.6-1.3); MAGNESIUM 2.4 mg/dL (1.8-2.4); PHOSPHORUS 3.9 mg/dL (2.5-4.9); POTASSIUM 3.5 mmol/L (3.5-5.1)
[2017-12-05 07:29] LABS: THYROID STIMULATING HORMONE 5.676 uIU/mL (0.358-3.74)
--- NOTE | 2017-12-05 07:37 | NUR ---
TELE/RN CLOSING NOTES PT RESTING IN BED. VENT SETTINGS REMAIN UNCHANGED. AC=16, FIO2=35%, TO=662, PEEP=5. ON TELE MONITOR SHOWING SR WITH HR 69. TRIPLE LUMEN CATH IV ACCESS TO RIGHT FEMORAL, PRESSURE DRESSING IN PLACE. IVF RUNNING ORDERED. NO S/S OF BLEEDING NOTED. REMAINS ON BILATERAL SOFT WRIST RESTRAINTS, GOOD CIRCULATION NOTED. RELEASED Q2H. RCW HD CATH DRESSING C/D/I. TURNED/ REPOSITIONED Q2H, HEELS OFFLOADED AT ALL TIMES. WOUND CARE PROVIDED ORDERED. TEMP IMPROVED WITH MOLINA HUGGER. NO INSULIN COVERAGE FOR BS= 85. BED IN LOW/LOCKED POSITION WITH CALL LIGHT IN REACH. SIDE RAILS UPX2. WILL ENDORSE TO DAY SHIFT RN FOR ANA
--- NOTE | 2017-12-05 08:20 | NUR ---
MS RN RECEIVED ON BED, BARELY OPENS EYES, RESPONSIVE TO PAIN STIMULI,VENT DEPENDENT PATIENT GT SITE, DRAINING W/ YELLOWISH OUTPUT, CENTRAL LING AT RIGHT GROIN,NO S/S OF BLEEDING, ON MOLINA HUGGER TO MAINTAIN TEMPERATURE,ALL NEEDS ATTENDED.
[2017-12-05 08:28] LABS: EOSINOPHILS % (AUTO) 0.3 % (0.0-6.0); LYMPHOCYTES # (AUTO) 0.2 /CMM (0.8-4.8); LYMPHOCYTES % (AUTO) 2.7 % (20.0-44.0); MEAN CORPUSCULAR HEMOGLOBIN 32 PG (26.0-33.0); MEAN CORPUSCULAR HGB CONC 34 g/dl (31.0-36.0); MEAN CORPUSCULAR VOLUME 96 fL (82-100); MONOCYTES % (AUTO) 0.5 % (2.0-12.0); NEUTROPHILS % (AUTO) 96.5 % (43.0-81.0); RDW COEFFICIENT OF VARIATION 23.5 (11.5-15.0); WHITE BLOOD COUNT (AUTO) 9.4 K/uL (4.3-11.0)
[2017-12-05 08:29] LABS: RED BLOOD CELL COUNT(AUTO) 1.79 MIL/uL (4.0-5.2)
[2017-12-05 08:31] LABS: HEMATOCRIT 17 % (33-45); HEMOGLOBIN 5.8 g/dL (11.5-14.8); PLATELET COUNT (AUTO) 35 /CMM (150-450)
--- NOTE | 2017-12-05 08:40 | NUR ---
MS RN HEMOGLOBIN 5.8 - GET ORDER FROM DR. ELIJAH WILKERSON, O INFUSED 4 PRBC W/ SLOW RATE AT 4 HOURS PER BAG AND ONE PLATELET STANDARD ORDER.
[2017-12-05] MEDS: Z GUARD REMEDY 2 OZ OINT TP SCH (09:00)
[2017-12-05 09:55] LABS: BAND % (MANUAL) 15 % (0.0-5.0); LYMPHOCYTES % (MANUAL) 2 % (16-48); MONOCYTES % (MANUAL) 1 % (0-11.0); NEUTROPHILS % (MANUAL) 82 (42-76)
[2017-12-05] MEDS: Z GUARD REMEDY 2 OZ OINT TP PRN (11:31)
[2017-12-05] MEDS: HYDROGEL DRESSING 90 GM TUBE TP SCH (11:31)
--- NOTE | 2017-12-05 13:50 | NUR ---
MS LEVY BS -19, D50 IVP GIVEN VIA CENTRAL LINE.
[2017-12-05] MEDS: DEXTROSE 50%-WATER 50 ML DISP.SYRIN IV PRN ×2 (14:00→18:17)
--- NOTE | 2017-12-05 14:05 | NUR ---
MS CAM BS RECHECK - 281 - DID NOT COVER ANY, PATIENT HAS HX OF HYPOGLYCEMIC.
--- NOTE | 2017-12-05 15:18 | NUR ---
ms crocker [facility] dine w/ no reaction.
--- NOTE | 2017-12-05 17:27 | NUR ---
ms rn plate done w/ no reaction.
--- NOTE | 2017-12-05 18:00 | NUR ---
ms rn bs - 52 - d50 ivp given,all needs attended.
--- NOTE | 2017-12-05 18:10 | NUR ---
ms rn bs -154-no distress noted.
--- NOTE | 2017-12-05 19:15 | NUR ---
TELE/RN OPENING NOTES PT RECEIVED SITTING UP IN BED. OPENS EYES SPONTANEOUSLY. MOUTHS WORDS. VENT SETTINGS AC=16, FIO2=35%, TR=171, PEEP=5. BREATHING EVEN AND UNLABORED. NO S/S OF SOB OR PAIN. PT APPEARS COMFORTABLE WITH HOB ELEVATED. ON TELE MONITOR SHOWING SR WITH HR 72. BLOOD SUGAR AT APPROX 1920 WAS 154. BLOOD TRANSFUSION ONGOING AT THIS TIME. TO BE COMPLETED AT APPROX 2130. S/P 1 UNIT OF PRBC'S AND 1 UNIT OF PLATELETS DURING DAY SHIFT. RIGHT FEMORAL IV SITE PATENT AND INTACT. PRESSURE DRESSING APPLIED WITH NO S/S OF BLEEDING AT THIS TIME. ON MOLINA MILLS. BED IN LOW/LOCKED POSITION WITH CALL LIGHT IN REACH. SIDE RAILS UPX2. WILL CONTINUE TO MONITOR
--- NOTE | 2017-12-05 21:37 | NUR ---
TELE/RN NOTES 2ND UNIT OF PRBC'S TRANSFUSED WITH NO S/S OF ADVERSE REACTIONS. AXILLARY TEMP= 97.3F VM=600/75 RR=19 PULSE=73 SPO2=97% WILL ORDER REPEAT H&H AT 2300 PER HOSPITAL PROTOCOL.
[2017-12-05] MEDS: PANTOPRAZOLE 40 MG VIAL IV SCH (23:30)
[2017-12-05 23:47] LABS: HEMOGLOBIN 9.4 g/dL (11.5-14.8)
[2017-12-06] VITALS: BP 105/73
[2017-12-06] MEDS: DEXTROSE 50%-WATER 50 ML DISP.SYRIN IV PRN (03:06)
[2017-12-06 04:00] VITALS: BP 106/78
[2017-12-06] MEDS: BLOOD SUGAR DIAGNOSTIC 1 EACH STRIP IN SCH ×3 (06:10→16:28)
--- NOTE | 2017-12-06 07:20 | NUR ---
TELE/RN NOTES NOTIFIED LAB ABOUT DISCREPANCY WITH PLATELETS IN TRANSFUSION HISTORY. COMPUTER SHOWS 1 UNIT OF PLATELETS STILL "ISSUED" HOWEVER THAT UNIT WAS ADMINISTERED ON 12/04/17 VIA DOWNTIME FORM PER JEANETTE FROM LAB. TOTAL OF 2 UNITS TRANSFUSED ORDERED. BUT COMPUTER ONLY SHOWS 1 UNIT WAS ADMINISTERED. LAB WILL FOLLOW UP TO SEE HOW WE CAN RESOLVE THE DISCREPANCY AND SHOW THAT 2 UNITS OF PLATELETS WERE TRANSFUSED ORDERED. DOWNTIME FORM IN CHART.
--- NOTE | 2017-12-06 07:24 | NUR ---
TELE/RN CLOSING NOTES PT RESTING IN BED. OPENS EYES, MOUTHS WORDS. VENT SETTINGS REMAIN UNCHANGED. ON TELE MONITOR SHOWING SR WITH HR 68. ON BILATERAL SOFT WRIST RESTRAINTS. RIGHT FEMORAL IV RUNNING IVF ORDERED. RCW DRESSING C/D/I. HD NURSE CURRENTLY AT BEDSIDE. TURNED/REPOSITIONED PT Q2H AND HEELS OFFLOADED AT ALL TIMES. WOUND CARE PROVIDED ORDERED. PAGED DR. PINK TO INFORM HIM OF THE RESULT OF PRELIMINARY BLOOD CX. AWAITING CALL BACK. KEPT PT COMFORTABLE DURING SHIFT. BED IN LOW/LOCKED POSITION WITH CALL LIGHT IN REACH. SIDE RAILS UPX2. WILL ENDORSE TO DAY SHIFT RN ANA.
[2017-12-06 08:00] VITALS: BP 108/71
--- NOTE | 2017-12-06 08:00 | NUR ---
TELE/RN AM NOTES PT RECEIVED SITTING UP IN BED. OPENS EYES SPONTANEOUSLY. MOUTHS WORDS. VENT SETTINGS AC=16, FIO2=35%, WN=066, PEEP=5. BREATHING EVEN AND UNLABORED. NO S/S OF SOB OR PAIN. PT APPEARS COMFORTABLE WITH HOB ELEVATED. ON TELE MONITOR SHOWING SR WITH HR 78. WITH RIGHT FEMORAL IV SITE PATENT AND INTACT. PRESSURE DRESSING APPLIED WITH NO S/S OF BLEEDING AT THIS TIME. ON MOLINA HUGGER. BED IN LOW/LOCKED POSITION WITH CALL LIGHT IN REACH. SIDE RAILS UPX2. WILL CONTINUE TO MONITOR
[2017-12-06 08:04] LABS: BASOPHILS # (AUTO) 0.4 /CMM (0.0-0.2); EOSINOPHILS % (AUTO) 0.3 % (0.0-6.0); HEMATOCRIT 25 % (33-45); HEMOGLOBIN 8.5 g/dL (11.5-14.8); LYMPHOCYTES # (AUTO) 0.4 /CMM (0.8-4.8); LYMPHOCYTES % (AUTO) 8.1 % (20.0-44.0); MEAN CORPUSCULAR HEMOGLOBIN 30 PG (26.0-33.0); MEAN CORPUSCULAR HGB CONC 34 g/dl (31.0-36.0); MEAN CORPUSCULAR VOLUME 89 fL (82-100); MONOCYTES # (AUTO) 0.1 /CMM (0.1-1.30); MONOCYTES % (AUTO) 2.3 % (2.0-12.0); NEUTROPHILS # (AUTO) 3.6 /CMM (1.8-8.9); RED BLOOD CELL COUNT(AUTO) 2.85 MIL/uL (4.0-5.2); WHITE BLOOD COUNT (AUTO) 4.5 K/uL (4.3-11.0)
[2017-12-06 08:20] LABS: BASOPHILS % (AUTO) 9.3 % (0.0-2.0); CALCIUM, SERUM 7.3 mg/dL (8.5-10.1); CREATININE 1.4 mg/dL (0.6-1.3); MAGNESIUM 2.1 mg/dL (1.8-2.4); PHOSPHORUS 3.7 mg/dL (2.5-4.9); PLATELET COUNT (AUTO) 32 /CMM (150-450); POTASSIUM 3.6 mmol/L (3.5-5.1)
[2017-12-06] MEDS: Z GUARD REMEDY 2 OZ OINT TP SCH (09:04)
[2017-12-06] MEDS: HYDROGEL DRESSING 90 GM TUBE TP SCH (09:04)
--- NOTE | 2017-12-06 09:06 | NUR ---
COMPLETED HEMODIALYSIS PROCEDURE BP 107/74 HR 71.DENIES ANY PAIN OR DISTRESS.
[2017-12-06 09:29] LABS: BAND % (MANUAL) 7 % (0.0-5.0); LYMPHOCYTES % (MANUAL) 7 % (16-48); MONOCYTES % (MANUAL) 5 % (0-11.0); NEUTROPHILS % (MANUAL) 81 (42-76)
[2017-12-06] MEDS: IV D5/0.45 NACL 1,000 ML IV PRN (11:21)
[2017-12-06] MEDS ORDERED: LIDOCAINE 1%-EPI 1:100,000 20 ML VIAL TP ONE (14:51)
[2017-12-06] MEDS ORDERED: EPOETIN ALFA (10,000 UNIT) 10,000 UNIT/ML VIAL SQ ONE (15:00)
[2017-12-06 16:00] VITALS: BP 102/73
--- NOTE | 2017-12-06 17:38 | NUR ---
RT PATIENT REC'D TRACHED ON MECH VENT WITH CURRENT VENT SETTINGS. VENT ALARMS CHECKED + AUDIBLE. AMBU BAG AT HOB
--- NOTE | 2017-12-06 19:30 | NUR ---
MARKETING AUTOMATION MANAGER OPENING NOTE RECEIVED PATIENT RESTING IN BED, ALERT, NON-VERBAL. BREATHING EVEN AND UNLABORED, VENT SETTINGS ORDERED PER MD. NO SOB NOTED. ISOLATION PRECAUTION OBSERVED. PATIENT KEPT CLEAN AND COMFORTABLE. SAFETY MEASURES IN PLACE: BED LOCKED AND IN LOWEST POSITION, CALL LIGHT IN REACH. WILL CONTINUE TO MONITOR.
[2017-12-06 20:00] VITALS: BP 99/73
[2017-12-07] VITALS: BP 91/66
[2017-12-07] MEDS: PANTOPRAZOLE 40 MG VIAL IV SCH ×2 (00:29→23:25)
[2017-12-07] MEDS: BLOOD SUGAR DIAGNOSTIC 1 EACH STRIP IN SCH ×5 (00:29→23:33)
--- NOTE | 2017-12-07 00:30 | NUR ---
ACCU-CHECK PERFORMED: PATIENT BLOOD GLUCOSE 17 MG/DL, IMMEDIATELY ADMINISTERED DEXTROSE 50ML IVP. Addendum: 12/07/17 at 0110 by MARK DONNELLY RN MD AWARE. CONTINUE TO MONITOR.
[2017-12-07] MEDS: DEXTROSE 50%-WATER 50 ML DISP.SYRIN IV PRN ×2 (00:37→12:04)
--- NOTE | 2017-12-07 01:08 | NUR ---
PATIENT BLOOD GLUCOSE RECHECKED AFTER ADMINISTERING DEXTROSE 50 ML: 193 MG/DL. MD AWARE, NO FURTHER ACTION AT THIS TIME.
[2017-12-07 04:00] VITALS: BP 102/76
--- NOTE | 2017-12-07 06:10 | NUR ---
MAINTENANCE DIRECTOR OPENING NOTES PATIENT RESTING IN BED, NO ACUTE DISTRESS NOTED. BREATHING EVEN AND UNLABORED, DENIES PAIN AND SOB. TELE READING WITH SR. IV TO RIGHT FEMORAL IN PLACE, INFUSING D5 1/2NS AT 50 ML/HR. HD SITE TO RIGHT CHEST WALL IN PLACE. BLOOD SUGAR LEVEL 80MG/DL, NO HYPOGLYCEMIA NOTED. ISOLATION PRECAUTION OBSERVED. BED LOCKED AND IN LOW LOCKED POSITION, CALL LIGHT WITHIN REACH. WILL ENDORSE TO DAY NURSE TO CONTINUE TO MONITOR.
--- NOTE | 2017-12-07 07:35 | NUR ---
PRESS SECRETARY OPENING NOTES PATIENT RESTING IN BED, NO ACUTE DISTRESS NOTED. BREATHING EVEN AND UNLABORED, DENIES PAIN AND SOB. TELE MONITOR IN PLACE. IV TO RIGHT FEMORAL IN PLACE, INFUSING D5 1/2NS AT 50 ML/HR. HD SITE TO RIGHT CHEST WALL IN PLACE. NO S.S OF HYPOGLYCEMIA NOTED. ISOLATION PRECAUTION OBSERVED. BED LOCKED AND IN LOW POSITION, CALL LIGHT WITHIN REACH. WILL CONTINUE TO MONITOR
[2017-12-07 08:00] VITALS: BP 95/72
[2017-12-07] MEDS: IV D5/0.45 NACL 1,000 ML IV PRN (09:27)
[2017-12-07] MEDS: HYDROGEL DRESSING 90 GM TUBE TP SCH (09:30)
[2017-12-07] MEDS: Z GUARD REMEDY 2 OZ OINT TP PRN (09:30)
[2017-12-07] MEDS: Z GUARD REMEDY 2 OZ OINT TP SCH (09:31)
[2017-12-07] MEDS ORDERED: MEROPENEM 1 G in IV NS 0.9% 100 ML IV SCH (11:00)
--- NOTE | 2017-12-07 11:05 | NUR ---
RN NOTES/MD ORDERS EVALUATED BY DR. DENNY WITH ORDERS TO REMOVE FEMORAL TRIPLE LUMEN CATHETER AND INSERT MIDLINE, CN AWARE, WILL CONTINUE TO MONITOR WILL CONTACT DR. RODRIGUEZ FOR FOLLOW UP ON PEG PLACEMENT
[2017-12-07] MEDS ORDERED: MEROPENEM 500 MG in IV NS 0.9% 50 ML IV SCH (12:00)
--- NOTE | 2017-12-07 12:37 | NUR ---
RN NOTES MIDLINE INSERTED BY MIDLINE RN, TOLERATED WELL CONTINUE TO MONITOR AND USE FOR IV FLUID ADMINISTRATION
--- NOTE | 2017-12-07 15:30 | NUR ---
RN NOTES SEEN AND EXAMINED BY GI NEWSPAPER REPORTER FOR DR. RODRIGUEZ PER NEWSPAPER REPORTER, ISSA, PT TO HAVE PEG PLACEMENT TOMORROW 12/07/17, WILL AWAIT ORDERS AND CONTINUE TO MONITOR
[2017-12-07 16:00] VITALS: BP 94/68
--- NOTE | 2017-12-07 16:42 | NUR ---
RN NOTES PATIENT WITH REMOVAL OF TRIPLE LUMEN CATHETER BY CN, TOLERATED WELL,PRESSURE DRESSING APPLIED WILL CONTINUE TO MONITOR
[2017-12-07 16:47] LABS: CALCIUM, SERUM 7.3 mg/dL (8.5-10.1); CREATININE 1.8 mg/dL (0.6-1.3); MAGNESIUM 2.2 mg/dL (1.8-2.4); PHOSPHORUS 5.6 mg/dL (2.5-4.9); POTASSIUM 3.4 mmol/L (3.5-5.1)
[2017-12-07] MEDS: INSULIN REGULAR, HUMAN 100 UNIT/ML 3 ML VIAL SQ PRN (17:04)
[2017-12-07] MEDS ORDERED: DOSING PER PHARMACY-AMIKACI IV XX PRN (17:30)
[2017-12-07 17:50] LABS: BASOPHILS % (AUTO) 0.1 % (0.0-2.0); EOSINOPHILS % (AUTO) 0.1 % (0.0-6.0); HEMATOCRIT 27 % (33-45); LYMPHOCYTES # (AUTO) 0.4 /CMM (0.8-4.8); MEAN CORPUSCULAR HEMOGLOBIN 30 PG (26.0-33.0); MEAN CORPUSCULAR HGB CONC 33 g/dl (31.0-36.0); MEAN CORPUSCULAR VOLUME 91 fL (82-100); MONOCYTES # (AUTO) 0.2 /CMM (0.1-1.30); MONOCYTES % (AUTO) 2.2 % (2.0-12.0); NEUTROPHILS # (AUTO) 10.4 /CMM (1.8-8.9); NEUTROPHILS % (AUTO) 93.6 % (43.0-81.0); RDW COEFFICIENT OF VARIATION 18.9 (11.5-15.0); RED BLOOD CELL COUNT(AUTO) 3.03 MIL/uL (4.0-5.2); WHITE BLOOD COUNT (AUTO) 11.1 K/uL (4.3-11.0)
[2017-12-07 17:57] LABS: PLATELET COUNT (AUTO) 20 /CMM (150-450)
[2017-12-07] MEDS ORDERED: FEE PK DOSING 1 MIN EA MC ONE (17:58)
[2017-12-07] MEDS ORDERED: NS 0.9% IV ONE (18:00)
[2017-12-07] MEDS ORDERED: VANCOMYCIN 1 GM in IV NS 0.9% 250 ML IV ONE (18:00)
[2017-12-07] MEDS ORDERED: AMIKACIN IV ONE (18:00)
[2017-12-07 18:04] LABS: BAND % (MANUAL) 10 % (0.0-5.0); LYMPHOCYTES % (MANUAL) 6 % (16-48); MONOCYTES % (MANUAL) 4 % (0-11.0); NEUTROPHILS % (MANUAL) 80 (42-76)
--- NOTE | 2017-12-07 18:23 | NUR ---
RN NOTES CALLED PHARMACY TO CLARIFY TIME OF VANCOMYCIN AND AMIKACIN, PER PHARMACIST, RUBEN CAST TO ADMINISTER WHEN MEDICATION AVAILABLE
--- NOTE | 2017-12-07 18:40 | NUR ---
RN NOTES MULTIPLE ATTEMPTS TO OBTAIN URINE CATHETERIZED SAMPLE, NODDING HEAD "NO" WILL REATTEMPT
--- NOTE | 2017-12-07 19:01 | NUR ---
ALARM MECHANISM ADJUSTER CLOSING NOTES PATIENT RESTING IN BED, NO ACUTE DISTRESS NOTED. BREATHING EVEN AND UNLABORED, DENIES PAIN AND SOB. TELE MONITOR IN PLACE. IV TO RIGHT UPPER ARM MIDLINE, INFUSING D5 1/2NS AT 50 ML/HR. HD SITE TO RIGHT CHEST WALL IN PLACE. S/P RIGHT FEMORAL CATH REMOVAL WITH NO S/S OF BLEEDING WITH PRESSURE DRESSING ON. NO S.S OF HYPOGLYCEMIA NOTED. ISOLATION PRECAUTION OBSERVED. BED LOCKED AND IN LOW POSITION, CALL LIGHT WITHIN REACH. WILL CONTINUE TO MONITOR AND ENDORSE TO NEXT SHIFT FOR CONTINUITY OF CARE
--- NOTE | 2017-12-07 19:11 | NUR ---
RN NOTES PER ISSA GROCERY SUPERVISOR, GI DEPT, WILL AWAIT RESULTS OF CBC FOR DECISION OF EGD WITH PEG PLACEMENT RELAYED RESULTS WILL AWAIT ANY NEW ORDERS
--- NOTE | 2017-12-07 19:13 | NUR ---
RN NOTES AMIKACIN, VANCOMYCIN NOT AVAILABLE FROM PHARMACY AT THIS TIME WILL ENDORSE TO NEXT SHIFT FOR ADMINISTRATION OF MEDICATION
--- NOTE | 2017-12-07 19:50 | NUR ---
TELE/RN NOTES RECEIVED PT. LYING IN BED WITH EYES OPEN. PT. IS A&O X1, OPENS EYES AND MOUTHS WORDS. PT. IS VENT/TRACH DEPENDENT. BREATHING EVEN AND UNLABORED. NO SOB, RESPIRATORY DISTRESS OR S/S OF PAIN NOTED AT THIS TIME. PT. WITH EXTERNAL BOBBIN WASHER PRESENT AND INTACT. CURRENT RHYTHM = SINUS RHYTHM HR 71. PT. WITH RIGHT UPPER ARM MIDLINE PRESENT, PATENT AND INTACT ADMINISTERING TO PT. D5 1/2 NS @ 50 ML/HR. PT. WITH BILATERAL SOFT WRIST RESTRAINTS PRESENT AND INTACT. CIRCULATION CHECK DONE. PER DAYSHIFT NURSE AMIKACIN AND VANCOMYCIN ANTIBIOTICS SCHEDULED FOR 1800 WERE NOT GIVEN BECAUSE MEDICATION WAS UNAVAILABLE. WILL ADMINISTER TO PT. MEDICATIONS WHEN AVAILABLE. BED LOCKED AND IN LOWEST POSITION, SIDE RAILS UP X3, BED ALARM ON, CALL LIGHT WITHIN REACH, WILL CONTINUE TO MONITOR.
[2017-12-07 20:00] VITALS: BP 94/67
--- NOTE | 2017-12-07 20:00 | NUR ---
TELE/RN NOTED PER ISSA HIGUERA, GI DEPT, NEW ORDERS: TRANSFUSE 1 UNIT OF PLATELETS, REDRAW CBC IN THE MORNING AND STANDING ORDER: TRANSFUSE IF PLATELETS LESS THAN 30. WILL CARRY OUT ORDERS. WILL CONTINUE TO MONITOR.
--- NOTE | 2017-12-07 20:21 | NUR ---
TELE/RN NOTES CLARIFIED WITH PHARMACY IF ONE TIME DOSE ANTIBIOTIC MEDICATIONS AMIKACIN AND VANCOMYCIN ARE TO BE ADMINISTERED NOW WITHOUT LEVELS BEING DRAWN PRIOR, AND PT. WILL RECEIVED HD TOMORROW. PER PHARMACIST OK TO GIVE MEDICATIONS SCHEDULED FOR TONIGHT, THEY ARE A LOADING DOSE AND NO LEVELS ARE NEEDED YET, THEY WILL BE DRAWN IN THE MORNING. WILL ADMINISTER MEDICATIONS TO PT. ORDERED. WILL CONTINUE TO MONITOR.
[2017-12-07] MEDS: MUPIROCIN OINT 2% 22 GM TUBE SCH (21:58)
--- NOTE | 2017-12-07 22:18 | NUR ---
Received the patient on AC16,400,35%,PEEP 5 as per MD order. Breath sounds equal bilateral. Ambu bag at the bed side. Vent plugged into red outlet and alarms set and audible. Suctioned patients airways as needed.
--- NOTE | 2017-12-07 23:45 | NUR ---
TELE/RN NOTES RECEIVED CALL FROM PHARMACY PLATELETS ARE READY. WILL ADMINISTER TO PT. 1 UNIT PLATELETS ORDERED. WILL CONTINUE TO MONITOR.
[2017-12-08] VITALS (11 sets, daily range): BP systolic 92–111; BP diastolic 64–72
--- NOTE | 2017-12-08 00:54 | NUR ---
TELE/RN NOTES PT. VITAL SIGNS STABLE BP: 92/64, HR 63, O2 SAT 100%, RR 16, TEMP 97.3F. BEGAN TRANSFUSION OF 1 UNIT PLATELETS ORDERED. WILL CONTINUE TO MONITOR.
--- NOTE | 2017-12-08 01:22 | NUR ---
TELE/RN NOTES TRANSFUSION OF 1 UNIT PLATELETS COMPLETED. PT. VITAL SIGNS STABLE. PT. TOLERATED TRANSFUSION WELL. NO ADVERSE REACTIONS NOTED. WILL CONTINUE TO MONITOR.
[2017-12-08] MEDS: DEXTROSE 50%-WATER 50 ML DISP.SYRIN IV PRN (05:36)
[2017-12-08] MEDS: BLOOD SUGAR DIAGNOSTIC 1 EACH STRIP IN SCH ×3 (05:36→18:47)
--- NOTE | 2017-12-08 06:57 | NUR ---
TELE/RN NOTES PT. IS LYING IN BED WITH EYES OPEN. PT. IS A&O X1, OPENS EYES AND MOUTHS WORDS. PT. IS VENT/TRACH DEPENDENT. BREATHING EVEN AND UNLABORED. NO SOB, RESPIRATORY DISTRESS OR S/S OF PAIN NOTED AT THIS TIME AND THROUGHOUT SHIFT. PT. WITH EXTERNAL BIG DATA DEVELOPER PRESENT AND INTACT. CURRENT RHYTHM = SINUS RHYTHM HR 68. PT. WITH RIGHT UPPER ARM MIDLINE PRESENT, PATENT AND INTACT ADMINISTERING TO PT. D5 1/2 NS @ 50 ML/HR. PT. WITH BILATERAL SOFT WRIST RESTRAINTS PRESENT AND INTACT. CIRCULATION CHECK DONE. ALL PT. NEEDS MET. PT. OFFLOADED, TURNED AND REPOSITIONED Q2H AND NEEDED. BED LOCKED AND IN LOWEST POSITION, SIDE RAILS UP X3, BED ALARM ON, CALL LIGHT WITHIN REACH, WILL ENDORSE TO DAYSHIFT NURSE FOR CONTINUITY OF CARE.
--- NOTE | 2017-12-08 07:30 | NUR ---
TELE/RN OPENING NOTE PATIENT IN BED. A/O X1. OPENS EYES. REORIENTATION PROVIDED. PATIENT ON VENT/TRACH. RESPIRATION REGULAR AND UNLABORED. NO RESPIRATORY DISTRESS NOTED. NO MANIFESTATION OF DISCOMFORT NOTED EXTERNAL CARDIAL MONITOR AT SHOWING SR. DAVID G 18 MIDLINE PATENT. PATIENT`S BED LOW AND LOCKED. SIDE RAILS UP X3. CALL LIGHT WITHIN REACH. WILL CONTINUE TO MONITOR.
[2017-12-08 08:37] LABS: BASOPHILS % (AUTO) 0.2 % (0.0-2.0); EOSINOPHILS % (AUTO) 0.1 % (0.0-6.0); HEMATOCRIT 26 % (33-45); HEMOGLOBIN 8.6 g/dL (11.5-14.8); LYMPHOCYTES # (AUTO) 0.5 /CMM (0.8-4.8); LYMPHOCYTES % (AUTO) 4.1 % (20.0-44.0); MEAN CORPUSCULAR HEMOGLOBIN 30 PG (26.0-33.0); MEAN CORPUSCULAR HGB CONC 34 g/dl (31.0-36.0); MEAN CORPUSCULAR VOLUME 90 fL (82-100); MONOCYTES # (AUTO) 0.3 /CMM (0.1-1.30); MONOCYTES % (AUTO) 2.4 % (2.0-12.0); NEUTROPHILS # (AUTO) 11.1 /CMM (1.8-8.9); NEUTROPHILS % (AUTO) 93.2 % (43.0-81.0); PLATELET COUNT (AUTO) 62 /CMM (150-450); RDW COEFFICIENT OF VARIATION 18.5 (11.5-15.0); RED BLOOD CELL COUNT(AUTO) 2.85 MIL/uL (4.0-5.2); WHITE BLOOD COUNT (AUTO) 11.9 K/uL (4.3-11.0)
[2017-12-08] MEDS: MUPIROCIN OINT 2% 22 GM TUBE SCH ×2 (09:07→21:49)
[2017-12-08] MEDS: HYDROGEL DRESSING 90 GM TUBE TP SCH (09:08)
[2017-12-08] MEDS: Z GUARD REMEDY 2 OZ OINT TP PRN (09:09)
[2017-12-08] MEDS: Z GUARD REMEDY 2 OZ OINT TP SCH (09:10)
[2017-12-08] MEDS: IV D5/0.45 NACL 1,000 ML IV PRN (10:57)
--- NOTE | 2017-12-08 13:48 | NUR ---
TELE/RN NOTE PATIENT NOTED TO BE UNRESPONSIVE TO ASYSTOLE. RAPID RESPONSE WAS CALLED IN. DR RUDOLPH TEAM AT THE ARRIVED, KONG BRIGGS WAS CALLED. PATIENT RESPONDED TO PAINFUL STIMULI BEFORE CODE BLUE ARRIVAL. CODE BLUE WAS CANCELED.
--- NOTE | 2017-12-08 14:00 | NUR ---
TELE/RN NOTE DR BARNETT MADE AWARE OF RAPID RESPONSE AND NO NEW ORDERS AT THIS TIME.
[2017-12-08 14:48] LABS: BAND % (MANUAL) 3 % (0.0-5.0); BASOPHILS % (MANUAL) 0 % (0.0-2.0); EOSINOPHILS % (MANUAL) 1 % (0-4); LYMPHOCYTES % (MANUAL) 7 % (16-48); MONOCYTES % (MANUAL) 1 % (0-11.0); NEUTROPHILS % (MANUAL) 88 (42-76)
[2017-12-08] MEDS ORDERED: EPOETIN ALFA (10,000 UNIT) 10,000 UNIT/ML VIAL IV ONE (15:00)
--- NOTE | 2017-12-08 16:04 | NUR ---
TELE/RN NOTE RECEIVED CALL FROM JEANIE (ROCKET SCIENTIST) INFORMING THAT PER DR BARNETT DIALYSIS TODAY WILL BE HELD AND DIALYSIS WILL BE DONE 12/09/17.
[2017-12-08] MEDS ORDERED: AMIKACIN 300 MG in IV D5W 100 ML IV PRN (17:00)
--- NOTE | 2017-12-08 17:50 | NUR ---
TELE/RN NOTE PER DR BARNETT RESUME ALL HOME MEDICATIONS AND GT FEEDING. ALL THE MEDICATIONS AND GT FEEDING READ BACK, VERIFIED. NOTED AND CARRIED OUT.
[2017-12-08] MEDS ORDERED: AMIKACIN 500 MG in IV D5W 100 ML IV PRN (18:00)
[2017-12-08] MEDS ORDERED: VANCOMYCIN 500 MG in IV NS 0.9% 100 ML IV PRN (18:00)
[2017-12-08] MEDS ORDERED: BISACODYL SUPP (10 MG) 10 MG/SUPP.RECT SUPP.RECT RC PRN (19:00)
[2017-12-08] MEDS ORDERED: MAGNESIUM HYDROXIDE 30 ML UDC PO PRN (19:00)
[2017-12-08] MEDS ORDERED: NA PHOS,M-B/NA PHOS,DI-BA 1 EA ENEMA RC PRN (19:00)
[2017-12-08] MEDS ORDERED: INSULIN ASPART/LISPRO 100 UNIT/ML CARTRIDGE SQ PRN (19:00)
[2017-12-08] MEDS ORDERED: ALBUTEROL FS 2.5 MG/0.5 ML VIAL.NEB NEB PRN (19:00)
[2017-12-08] MEDS ORDERED: IPRATROPIUM NEB FS 0.5 MG/2.5 ML AMPUL.NEB NEB PRN (19:00)
[2017-12-08] MEDS ORDERED: ONDANSETRON 4 MG TAB.RAPDIS PO PRN (19:00)
[2017-12-08] MEDS ORDERED: HOME MED MISCELLANEOUS XX SCH (19:00)
--- NOTE | 2017-12-08 19:00 | NUR ---
recieved patient awake and nonverbal. TV on and she appears to be watching the TV. Aspiration precaution in effect HOB elevated GT feeding at 30 ml hr no residual at this time. incontinent UA and moderated amount dirrhea.
--- NOTE | 2017-12-08 19:45 | NUR ---
TELE/RN CLOSING NOTE PATIENT ALERT AND ORIENTED X1. OPENS EYES AND SAYS 1-2 SHORT WORDS. RESPIRATION REGULAR AND UNLABORED. NO MANIFESTATION OF DISTRESS AT THIS TIME. PATIENT ON VENT/TRACH. SR. DAVID G 18 MIDLINE PATENT. PATIENT`S BED LOW AND LOCKED. SIDE RAILS UP X3. CALL LIGHT WITHIN REACH. WILL CONTINUE TO MONITOR.
[2017-12-08] MEDS: RENAL NOVASOURCE 1,000 ML BOTTLE GT SCH (20:21)
[2017-12-08] MEDS: SUCRALFATE 1 G TABLET PO SCH (21:48)
[2017-12-08] MEDS: SIMVASTATIN 10 MG TABLET PO SCH (21:48)
[2017-12-08] MEDS: PANTOPRAZOLE 40 MG VIAL IV SCH (23:13)
[2017-12-09] VITALS (9 sets, daily range): BP systolic 94–117; BP diastolic 63–73
[2017-12-09] MEDS: BLOOD SUGAR DIAGNOSTIC 1 EACH STRIP IN SCH ×5 (00:10→23:51)
[2017-12-09] MEDS: INSULIN REGULAR, HUMAN 100 UNIT/ML 3 ML VIAL SQ PRN ×2 (00:17→06:10)
--- NOTE | 2017-12-09 04:45 | NUR ---
AWAKE MOST OF THE NIGHT.SHE FOLLOWS YOU WITH HER EYES ASPIRATION PRECAUTIONS. INCONTINENT UA AND DIARRHES KEPT CLEANED AND REPOSITIONED AND ON A SPECIAL AIR FLOW BED KEPT STG 3 WOUND CLEAN AND HYDOGEL AND MEPILEX APPLIED ABD BINGER IN PLACE TO PROTECT NEWLY PLACED GT NOVASORCE RENAL BAG AT 30 ML HR RESIDUALS CHECKED Q 4 HOURS AND NO RESIDUALS, WRIST RESTRAINTS ON AND REMOVED WHEN IN THE ROOM WITH THE PATIENTS AND ALLOWED TO HAVE ROM. ISOLATION CONTACT DT MRSA NOSTRILS
[2017-12-09] MEDS: SUCRALFATE 1 G TABLET PO SCH ×4 (07:30→22:26)
[2017-12-09] MEDS: LEVOTHYROXINE SODIUM 50 MCG TABLET PO SCH (07:30)
--- NOTE | 2017-12-09 07:30 | NUR ---
RN OPEN NOTES RECEIVED REPORT FROM SEARCH PLANNER NURSE. WILL CONTINUE TO ASSES AND MONITOR PATIENT THROUGHOUT MY SHIFT
[2017-12-09] MEDS: MULTIVIT, IRON, MIN NO. 8, FA 1 TAB PO SCH (09:00)
[2017-12-09] MEDS ORDERED: MAGNESIUM OXIDE 400 MG TABLET PO SCH (09:00)
[2017-12-09] MEDS ORDERED: FERROUS SULFATE (325 MG) 325 MG/TAB TABLET PO SCH (09:00)
[2017-12-09] MEDS: FLUOXETINE HCL 20 MG CAPSULE PO SCH (09:00)
[2017-12-09] MEDS: ASCORBIC ACID 500 MG TABLET PO SCH (09:00)
--- NOTE | 2017-12-09 09:00 | NUR ---
HD NURSE AT BEDSIDE TO START DIALYSIS
[2017-12-09] MEDS: MUPIROCIN OINT 2% 22 GM TUBE SCH ×2 (09:02→21:22)
[2017-12-09] MEDS: Z GUARD REMEDY 2 OZ OINT TP SCH (09:03)
[2017-12-09] MEDS: HYDROGEL DRESSING 90 GM TUBE TP SCH (09:03)
--- NOTE | 2017-12-09 09:15 | NUR ---
HELD ALL AM MEDS DUE TO PATIENT HD
[2017-12-09] MEDS ORDERED: ALBUMIN 25% 25 GM in PREMIX 1 EA IV ONE (10:00)
--- NOTE | 2017-12-09 11:00 | NUR ---
HD COMPLETED - NO OUTPUT. CLEAN ONLY
--- NOTE | 2017-12-09 11:24 | NUR ---
DR GARNICA AT BEDSIDE. STOP FLUID AND CHANGE FEW MEDS. WAITING DR GARNICA ORDER
[2017-12-09] MEDS: ACETAMINOPHEN 325 MG TABLET PO PRN (11:37)
[2017-12-09] MEDS: FAMOTIDINE (20 MG) 20 MG TABLET PO SCH (11:38)
--- NOTE | 2017-12-09 13:00 | NUR ---
FEEDING ON GOLD FOR 6 HOURS PER ORDER
--- NOTE | 2017-12-09 14:24 | NUR ---
per pharmacy: administer amikacin, hold vanco
[2017-12-09] MEDS: HYDROMORPHONE INJ 0.5 MG/0.5 ML SYRINGE IV PRN (17:02)
[2017-12-09] MEDS: RENAL NOVASOURCE 1,000 ML BOTTLE GT SCH (17:11)
[2017-12-09] MEDS: DEXTROSE 50%-WATER 50 ML DISP.SYRIN IV PRN (17:23)
--- NOTE | 2017-12-09 17:24 | NUR ---
BLOOD SUGAR 30. 2ND CHECK 33. ADMINISTERED DEXTROSE PER PRN ORDER. WILL RECHECK BS IN 15 MIN
--- NOTE | 2017-12-09 17:50 | NUR ---
BLOOD SUGAR 137 AFTER DEXTROSE D50
--- NOTE | 2017-12-09 18:47 | NUR ---
RN CLOSING NOTES PATIENT IS ALERT AND ORIENTED TO SELF ONLY. NON VERBAL, VENT DEPENDENT. RESTING IN BED. NO SIGNS AND SYMPTOMS OF DISTRESS OR PAIN. BED IN LOW POSITION, LOCKED AND TWO BEDSIDE RAILS ARE UP. CALL LIGHT IS WITHIN REACH FOR SAFETY. ALL NEEDS WERE MET. ALL NURSING CARE ANTICIPATED AND ATTENDED FOR. DRESSING CHANGE COMPLETED. BLOOD SUGAR DROPPED TO 30 - SEE NURSING NOTES FOR MORE INFO. WILL ENDORSE CARE TO FISHERIES SPECIALIST NURSE.
--- NOTE | 2017-12-09 19:36 | NUR ---
patient asleep skin warm and dry gt feeding at 30 ml/hr aspiration precautions abd binder on isolation a/t mrsa nares resp even and unlabored novasourse renal bag feeding up at this time
--- NOTE | 2017-12-09 19:36 | NUR ---
Received Trach patient on noted settings. SALESFORCE ADMINISTRATOR was done. Ambu bag at the bed side. Vent plugged into red outlet and alarms set and audible. SX small amount of white secretions. Will continue to monitor patient.
[2017-12-09] MEDS: SIMVASTATIN 10 MG TABLET PO SCH (22:26)
[2017-12-10] VITALS: BP 104/54
[2017-12-10] MEDS: DEXTROSE 50%-WATER 50 ML DISP.SYRIN IV PRN
--- NOTE | 2017-12-10 00:36 | NUR ---
12/10/2017 0000 blood sugar 49 1 Amp D50 given 0030 blood sugar 130
[2017-12-10 00:44] VITALS: BP 104/54
[2017-12-10 04:00] VITALS: BP 102/50
--- NOTE | 2017-12-10 04:23 | NUR ---
Patient slepy most of the night. When she is awake TV is on and she appears to be listening. Mushy greenish stool times 2 this 12 hours cleaned and hydogel oint to her sacral wound, Bactrician to her nares d/t MRSA, Isolation maintaind Sats 97 -100% Tolerating her GT feeding 30 ml hr zero residuals checked times 3 through the night. Aspiration precauions. GT site clean and dry Addendum: 12/10/17 at 0428 by EDUARDO MAZA RN Blood sugar at midnight 49 1 amp D50 given and blood sugar came up to 130.
[2017-12-10] MEDS: BLOOD SUGAR DIAGNOSTIC 1 EACH STRIP IN SCH ×4 (05:52→23:22)
[2017-12-10] MEDS: INSULIN REGULAR, HUMAN 100 UNIT/ML 3 ML VIAL SQ PRN (06:01)
[2017-12-10 06:53] LABS: EOSINOPHILS % (AUTO) 0.1 % (0.0-6.0); HEMATOCRIT 23 % (33-45); HEMOGLOBIN 7.5 g/dL (11.5-14.8); LYMPHOCYTES # (AUTO) 0.1 /CMM (0.8-4.8); LYMPHOCYTES % (AUTO) 0.7 % (20.0-44.0); MEAN CORPUSCULAR HEMOGLOBIN 30 PG (26.0-33.0); MEAN CORPUSCULAR HGB CONC 33 g/dl (31.0-36.0); MEAN CORPUSCULAR VOLUME 91 fL (82-100); NEUTROPHILS # (AUTO) 17.4 /CMM (1.8-8.9); NEUTROPHILS % (AUTO) 99.2 % (43.0-81.0); RDW COEFFICIENT OF VARIATION 20.1 (11.5-15.0); RED BLOOD CELL COUNT(AUTO) 2.49 MIL/uL (4.0-5.2); WHITE BLOOD COUNT (AUTO) 17.6 K/uL (4.3-11.0)
[2017-12-10 07:30] LABS: ALBUMIN 1.7 g/dL (3.4-5.0); CREATININE 1.8 mg/dL (0.6-1.3); PHOSPHORUS 3.5 mg/dL (2.5-4.9); TOTAL PROTEIN, SERUM 4.4 g/dL (6.4-8.2)
[2017-12-10 07:38] LABS: PLATELET COUNT (AUTO) 13 /CMM (150-450)
[2017-12-10 08:00] VITALS: BP 97/57
--- NOTE | 2017-12-10 08:00 | NUR ---
STATIONARY ENGINEER APPRENTICE NOTES PATIENT IN BED RESTING ALERT, ORIENTED X1. VENT DEPENDENT. VENT SETTING NOTED. PATIENT WITH MIDLINE ON RIGHT UPPER ARM, INTACT PATENT. RECEIVING DIALYSIS CURRENTLY. NOTED WITH DECREASED BP ALBUMIN ORDERED BY DIALYSIS NURSE. PATIENTS TRACH STOMA NOTED LARGER THEN USUAL AND VENT NOTED BEEPING CONSTANTLY RT NOTIFIED. O2 SATURATION AT 100% WILL CONTINUE TO MONITOR.
[2017-12-10 08:22] LABS: POTASSIUM 2.8 mmol/L (3.5-5.1)
[2017-12-10] MEDS ORDERED: ALBUMIN 25% 25 GM in PREMIX 1 EA IV ONE (08:30)
[2017-12-10 08:42] LABS: BAND % (MANUAL) 13 % (0.0-5.0); LYMPHOCYTES % (MANUAL) 2 % (16-48); NEUTROPHILS % (MANUAL) 85 (42-76)
[2017-12-10] MEDS ORDERED: DOSE PER PHARMACY MICAFUNGIN 1 EA XX PRN (09:00)
[2017-12-10] MEDS: HYDROGEL DRESSING 90 GM TUBE TP SCH (09:23)
[2017-12-10] MEDS: Z GUARD REMEDY 2 OZ OINT TP SCH (09:23)
[2017-12-10] MEDS: MUPIROCIN OINT 2% 22 GM TUBE SCH ×2 (09:23→21:04)
[2017-12-10] MEDS ORDERED: MICAFUNGIN SODIUM 100 MG in IV NS 0.9% 100 ML IV SCH (09:30)
[2017-12-10] MEDS: FLUOXETINE HCL 20 MG CAPSULE PO SCH (09:31)
[2017-12-10] MEDS: FAMOTIDINE (20 MG) 20 MG TABLET PO SCH (09:31)
[2017-12-10] MEDS: LEVOTHYROXINE SODIUM 50 MCG TABLET PO SCH (09:31)
[2017-12-10] MEDS: SUCRALFATE 1 G TABLET PO SCH ×4 (09:31→21:04)
[2017-12-10] MEDS: ASCORBIC ACID 500 MG TABLET PO SCH (09:31)
[2017-12-10] MEDS: MULTIVIT, IRON, MIN NO. 8, FA 1 TAB PO SCH (09:31)
--- NOTE | 2017-12-10 10:00 | NUR ---
ROLLER INSPECTOR NOTES DR. ARANDA MADE AWARE OF PATIENT NOT RECEDING TOTAL FUL VOLUME. AND PATIENTS STOMA BEING BIGGER AND NOTED WITH BLEEDING WITH MINIMAL AMOUNT. WAITING FOR DR. ARANDA TO EVALUATE PATIENT.
--- NOTE | 2017-12-10 12:40 | NUR ---
PT TRACHED VENT ALARMS ON AND AUDIBLE VENT PLUGGED IN RED OUTLET AMBU BAG ON BED OF BED, WHEN PT MOVES, PT DOESN'T RECEIVE FULL VOLUME, INFORMED RN LIVAN AND CHARGE LUCHO AND DR WILKERSON SP02 100% WILL TRANSFER TO [facility]
--- NOTE | 2017-12-10 13:00 | NUR ---
PLANT WORKER NOTES PATIENT SEEN AND EVALUATED BY DR. WILKERSON. ORDERS TO ADMINISTER 1 UNIT OF PLATELETS, ABG, TRANSFER PATIENT TO [facility] FOR CLOSER MONITORING.
--- NOTE | 2017-12-10 14:20 | NUR ---
CNA CAREGIVER NOTES PATIENT EVALUATED BY DR. ARANDA ORDEREDS NOTED AND CARRIED OUT. WAITING FOR ENT MD TO CHANGE TACH.
--- NOTE | 2017-12-10 14:30 | NUR ---
UTILIZATION REVIEW RN NOTES PATIENT TRANSFERRED TO [facility] ROOM 114 WITH FULL TRANSFER TEAM. TRANSFER PROTOCOL FOLLOWED. REPORT GIVEN TO MILO LEVY. LEATHA CHARGE NURSE AT BEDSIDE TRANSFEREE CARE TO [facility].
--- NOTE | 2017-12-10 15:00 | NUR ---
TD/HAND MOLDER AND CASTER TO [facility] PT HAS ARRIVED, PT AWAKE, ABLE TO NOD TO RESPONSE. NO ACUTE BLEEDING NOTED ON THE TRACH SITE. VENTILATOR SET RATES PRESCRIBED, ON TELE WITH SINUS RHYTHM. GT-FEEDING ON GOING, NO GASTRIC RESIDUAL NOTED, FLUSHED, PATENT. IV SITE PATENT WITH NO S/S OF INFECTION. TO CONTINUE CARE. CL WITHIN REACHED, SAFETY MAINTAINED AND ISOLATION OBSERVED. ON GOING MONITORING.
[2017-12-10] MEDS: RENAL NOVASOURCE 1,000 ML BOTTLE GT SCH (15:30)
[2017-12-10] MEDS ORDERED: IV NS 0.9% 250 ML BAG IV ONE (15:30)
[2017-12-10] MEDS: EPOETIN ALFA (10,000 UNIT) 10,000 UNIT/ML VIAL SQ SCH (15:31)
[2017-12-10 16:45] LABS: ABG BASE EXCESS -1.3 mmol/L; ABG OXYGEN SATURATION 98.2 % (92.0-98.5); ABG PCO2 32.2 mmHg (35.0-45.0); ABG PH 7.458 (7.350-7.450); ABG PO2 147.2 mmHg (75.0-100.0); AaDO2 64.9 mmHg; COHb 1.2 % (0.5-1.5); MetHb 1.1 % (0.0-1.5); O2Hb 95.9 % (94.0-97.0); PEEP,BG 5 cm H2O; SITE, ABG Left Radial; VENT MODE, BG AC 35% 02; VT, ABG 400 mL
--- NOTE | 2017-12-10 18:12 | NUR ---
RT PT TRANSFERRED TO [facility] DR ARANDA AWARE OF TRACH MALFUNCTION ENT WILL SWITCH OUT TRACH XLT SHILEY 8 AT BEDSIDE. CHANGED TIDAL VOLUME TO [address] ARANDA'S ORDER
--- NOTE | 2017-12-10 19:30 | NUR ---
TD/RN AM SHIFT END NOTES NO ACUTE BLEEDING NOTED SINCE PT WAS TRANSFERRED TO [facility]. ALL NEEDS MET. PT ENDORSED TO PM NURSE TO CONTINUE CARE. CL WITHIN REACHED, SAFETY MAINTAINED AND ISOLATION OBSERVED.
--- NOTE | 2017-12-10 19:50 | NUR ---
RCVD PT ON VENT WITH NOTED SETTINGS. SUCTIONED SMALL AMOUNT OF WHITE THICK SECRETIONS. VENT PLUGGED INTO RED OUTLET, VENT ALARM WORKING AND AUDIBLE. AMBU BAG AT BEDSIDE, WILL CONTINUE TO MONITOR THE PT.
[2017-12-10 20:00] VITALS: BP 109/70
--- NOTE | 2017-12-10 20:00 | NUR ---
RN NOTE RECEIVED ENDORSEMENT FROM AM SHIFT, PATIENT IS TO HAVE 1u OF PLATELETS TO BE INFUSED ORDERED FOR PLATELETS OF 13. NO ACTIVE BLEEDING AT THIS TIME. NO BLEEDING ON TRACH SITE NOTED. PRESSURE DRESSING ON TRACH SITE IN PLACE FOR NOTED AIR LEAKAGE, VT KEPT >300 AT THIS TIME, VENT ALARMS NOT GOING OFF. PATIENT IS ALERT AND ABLE TO MAKE BASIC NEEDS KNOWN, ABLE TO NOD. DAVID MIDLINE FLUSHED AND INTACT. GTF INFUSING WITH NO RESIDUAL, TOLERATING WELL. PATIENT'S NEEDS ANTICIPATED AND MET. SAFETY AND COMFORT ENSURED. BED IN LOW AND LOCKED POSITION. CALL LIGHT IN REACH. B SOFT WRIST RESTRAINTS IN PLACE, CIRCULATION AND SKIN INTEGRITY KEPT INTACT. WILL CONTINUE TO MONITOR.
--- NOTE | 2017-12-10 21:00 | NUR ---
RN NOTES PER LAB, PATIENT'S TYPE AND SCREEN HAS AND NEEDS TO BE REORDERED ALONG WITH THE PLATELETS. ORDER PLACED. WILL AWAIT FOR RESULT AND AVAILABLITY.
[2017-12-10] MEDS: SIMVASTATIN 10 MG TABLET PO SCH (21:04)
[2017-12-10] MEDS: FLUCONAZOLE (100 MG) 100 MG TABLET PO SCH (21:06)
[2017-12-10] MEDS: HYDROMORPHONE INJ 0.5 MG/0.5 ML SYRINGE IV PRN (23:13)
[2017-12-11] VITALS (10 sets, daily range): BP systolic 109–118; BP diastolic 65–83
--- NOTE | 2017-12-11 00:30 | NUR ---
RN NOTE LAB CALLED AND INFORMED THAT PLATELETS ARE AVAILABLE. STARTED TRANSFUSION OF PLATELETS, VS STABLE. VERIFIED WITH DINORA DUNAWAY.
--- NOTE | 2017-12-11 01:30 | NUR ---
RN NOTE 1U PLATELETS TRANSFUSED. STABLE V/S, NO TRANSFUSION REACTION NOTED.
--- NOTE | 2017-12-11 02:45 | NUR ---
RN NOTE PATIENT COMPLAINING OF FEELING COLD. PATIENT IS COOL TO TOUCH, NO TREMORS NOTED. TEMP CHECKED, UNABLE TO BE APPRECIATED VIA ORAL AND AXILLARY ROUTE. RECTAL TEMP CHECKED AND NOTED PATIENT'S TEMP TO BE 94.6. WARM BLANKETS PLACED AND ROOM CHANGE INITIATED WITH MINIMAL HELP. PATIENT PLACED ON BEAR HUGGER. WILL MONITOR CLOSELY.
[2017-12-11] MEDS: BLOOD SUGAR DIAGNOSTIC 1 EACH STRIP IN SCH ×3 (05:41→17:41)
--- NOTE | 2017-12-11 06:32 | NUR ---
RN NOTES PATIENT WITH X3 BOWEL MOVEMENT THROUGH THE SHIFT. FIRST BM NOTED TO BE MUCOID, PASTY, YELLOW STOOL - CN AWARE. AT 0200 AND 0600, PATIENT NOTED TO HAVE LIQUID, YELLOW URINE, CDIFF REPORT SHEET FILLED UP AND FILED IN CHART, WILL ENDORSE TO NEXT SHIFT TO MONITOR FOR 3RD EPISODE OF LIQUID STOOL AND TO COLLECT SPECIMEN FOR CDIFF. PATIENT TOLERATED VENT SETTINGS WELL, AIR LEAKAGE MANAGED BY PRESSURE APPLIED ON TRACH STOMA AND BALLOON INFLATION. RN AND RT CLOSELY MONITORING PATIENT. TOLERATED GTF WELL, NO GASTRIC RESIDUAL. WOUND TREATMENT RENDERED ORDERED. SAFETY AND COMFORT ENSURED. BED IN LOW AND LOCKED POSITION. CALL LIGHT IN REACH.
[2017-12-11 06:37] LABS: EOSINOPHILS % (AUTO) 0.1 % (0.0-6.0); HEMATOCRIT 21 % (33-45); HEMOGLOBIN 7.1 g/dL (11.5-14.8); LYMPHOCYTES # (AUTO) 0.2 /CMM (0.8-4.8); LYMPHOCYTES % (AUTO) 1.7 % (20.0-44.0); MEAN CORPUSCULAR HEMOGLOBIN 31 PG (26.0-33.0); MEAN CORPUSCULAR HGB CONC 34 g/dl (31.0-36.0); MEAN CORPUSCULAR VOLUME 90 fL (82-100); MONOCYTES # (AUTO) 0.1 /CMM (0.1-1.30); MONOCYTES % (AUTO) 0.9 % (2.0-12.0); NEUTROPHILS # (AUTO) 11.9 /CMM (1.8-8.9); NEUTROPHILS % (AUTO) 97.3 % (43.0-81.0); RED BLOOD CELL COUNT(AUTO) 2.34 MIL/uL (4.0-5.2); WHITE BLOOD COUNT (AUTO) 12.3 K/uL (4.3-11.0)
[2017-12-11 06:41] LABS: PLATELET COUNT (AUTO) 50 /CMM (150-450)
--- NOTE | 2017-12-11 06:44 | NUR ---
RN NOTE RECEIVED CALL FROM DOMINGO FROM LAB. PATIENT'S PLATELETS IS 50,000. WILL ENDORSE ACCORDINGLY.
[2017-12-11 06:50] LABS: CALCIUM, SERUM 7.5 mg/dL (8.5-10.1); CREATININE 1.6 mg/dL (0.6-1.3); MAGNESIUM 1.9 mg/dL (1.8-2.4); PHOSPHORUS 2.5 mg/dL (2.5-4.9)
[2017-12-11 07:25] LABS: POTASSIUM 2.8 mmol/L (3.5-5.1)
--- NOTE | 2017-12-11 08:00 | NUR ---
TD/RN AM SHIFT INITIAL NOTES RECEIVED PT ASLEEP IN BED, AROUSEABLE, PT OPEN EYES, NON-VERBAL, ABLE TO RESPONSE BY NODDING, A/O X 1, NO ACUTE CHANGE OF CONDITION OR ACTIVE BLEEDING. ON VENTILATOR WITH RATES SET PRESCRIBED, SATURATING @ 100%, LUNG SOUNDS CLEAR. ON TELE WITH SINUS RHYTHM, HR 93, IV SITE PATENT WITH NO S/S OF INFECTION, ON TKO. PT IS SCHEDULED FOR A TRACH TUBE CHANGE TODAY. SCHEDULED AM MEDS TO BE GIVEN. CL WITHIN REACHED, SAFETY MAINTAINED AND ISOLATION OBSERVED. ON GOING MONITORING.
[2017-12-11 08:40] LABS: BAND % (MANUAL) 7 % (0.0-5.0); LYMPHOCYTES % (MANUAL) 1 % (16-48); NEUTROPHILS % (MANUAL) 92 (42-76)
[2017-12-11] MEDS: SUCRALFATE 1 G TABLET PO SCH ×4 (08:42→21:44)
[2017-12-11] MEDS: Z GUARD REMEDY 2 OZ OINT TP SCH (08:42)
[2017-12-11] MEDS: LEVOTHYROXINE SODIUM 50 MCG TABLET PO SCH (08:42)
[2017-12-11] MEDS: ASCORBIC ACID 500 MG TABLET PO SCH (08:42)
[2017-12-11] MEDS: FLUCONAZOLE (100 MG) 100 MG TABLET PO SCH (08:42)
[2017-12-11] MEDS: MULTIVIT, IRON, MIN NO. 8, FA 1 TAB PO SCH (08:42)
[2017-12-11] MEDS: FLUOXETINE HCL 20 MG CAPSULE PO SCH (08:42)
[2017-12-11] MEDS: FAMOTIDINE (20 MG) 20 MG TABLET PO SCH (08:42)
[2017-12-11] MEDS: MUPIROCIN OINT 2% 22 GM TUBE SCH ×2 (08:43→21:44)
[2017-12-11] MEDS: HYDROGEL DRESSING 90 GM TUBE TP SCH (08:43)
[2017-12-11] MEDS ORDERED: POTASSIUM CHLORIDE 20 MEQ POWDER PACKET NG ONE (11:00)
--- NOTE | 2017-12-11 13:00 | NUR ---
TD/RN CHANGE TRACH TUBE DR. MCDOWELL AT BEDSIDE CHANGED PT'S TRACH TUBE TO SHILEY #8 XLT WITH RT RUBY ASSISTING. PT TOLERATED PROCEDURE. ON GOING MONITORING.
--- NOTE | 2017-12-11 13:01 | NUR ---
PT. TRACH CHANGED TO VASYL XLT # [address] CAMPBELL AT THE BEDSIDE. CAM PEDRAZA AT THE BEDSIDE. NO DISTRESS NOTED AND PT. VARUN. WELL AND ADEQUATE TIDAL VOLUME ARE NOTED ON THE VENTILATOR. NO BLEEDING, CONTINUE FOR CARE AND MONITORING. Addendum: 12/11/17 at 1759 by RUBY LOPEZ RT Amended: Links added.
[2017-12-11] MEDS: INSULIN REGULAR, HUMAN 100 UNIT/ML 3 ML VIAL SQ PRN (13:19)
--- NOTE | 2017-12-11 18:03 | NUR ---
PT. REMAIN STABLE ON TRACHED SHILEY XLT # 8 ON VENT CHANGES T/O DAY AND NO DISTRESS NOTED. B/S REMAIN RHONCHI AND SUX'D FOR SMALL AMT. YELLOWISH SECRETION. VENT ON RED OUT LET AND AMBU BAG REMAIN AT THE BEDSIDE. REPORT WILL PASS TO PM SHIFT. Addendum: 12/11/17 at 1804 by RUBY LOPEZ RT Amended: Links added.
--- NOTE | 2017-12-11 19:33 | NUR ---
TD/RN AM SHIFT END NOTES ALL NEEDS MET. PT TOLERATING TRACH TUBE CHANGE, NO ACTIVE BLEEDING NOTED, REMAINED RHONCHI, SUCTIONED NEEDED. ALL NEEDS MET. PT ENDORSED TO PM NURSE TO CONTINUE CARE. CL WITHIN REACHED, SAFETY MAINTAINED AND ISOLATION OBSERVED.
--- NOTE | 2017-12-11 20:00 | NUR ---
ASHANTI RN NOTE RECEIVED PT IN BED AWAKE. A/O X 1, RESPONDS TO VERBAL AND TACTILE STIMULATION, NON VERBAL, TRACH/VENT TOLERATING SETTINGS WELL. NO DISTRESS OR DISCOMFORT NOTED. DENIES PAIN. ON TELE SR HR 92. GT INTACT AND PATENT INFUSING NOVASOURCE AT 30 ML/HR, 0 ML RESIDUAL NOTED. DAVID WITH MIDLINE INTACT AND PATENT TKO. NO S/S OF INFILTRATION NOTED. RT SUBCLAVIAN HD CATH INTACT WITH DRESSING ON. PT IN ISOLATION, ISOLATION PRECAUTIONS TAKEN. VSS. REPOSITION HER FOR SKIN MANAGEMENT, KEPT HER DRY AND CLEAN. SIDE RAILS UP X 3 AND CALL LIGHT WITHIN REACH. CONTINUE TO MONITOR HER.
[2017-12-11] MEDS: SIMVASTATIN 10 MG TABLET PO SCH (21:44)
[2017-12-11] MEDS: METRONIDAZOLE 500 MG TABLET PO SCH (21:44)
[2017-12-12] VITALS (7 sets, daily range): BP systolic 99–120; BP diastolic 66–86
[2017-12-12] MEDS: DEXTROSE 50%-WATER 50 ML DISP.SYRIN IV PRN (00:09)
[2017-12-12] MEDS: BLOOD SUGAR DIAGNOSTIC 1 EACH STRIP IN SCH ×4 (00:10→17:27)
--- NOTE | 2017-12-12 00:10 | NUR ---
ASHANTI RN NOTE BS DROPPED TO 34, DEXTROSE 50% IVP GIVEN. WILL RECHECK THE BS. PT SHOW NO S/S OF HYPOGLYCEMIA AT THIS TIME.
--- NOTE | 2017-12-12 00:40 | NUR ---
ASHANTI RN NOTE BS CAME UP TO 156, CONTINUE TO MONITOR.
[2017-12-12] MEDS: RENAL NOVASOURCE 1,000 ML BOTTLE GT SCH (04:00)
[2017-12-12] MEDS: METRONIDAZOLE 500 MG TABLET PO SCH ×2 (04:02→13:57)
--- NOTE | 2017-12-12 07:00 | NUR ---
ASHANTI RN NOTE PT IN NO DISTRESS OR DISCOMFORT. NO S/S OF PAIN NOTED. ON TELE SR HR 90. KEPT HER DRY AND CLEAN. ALL NEEDS ATTENDED. ENDORSE TO DAY SHIFT NURSE FOR CONTINUE TO CARE.
--- NOTE | 2017-12-12 07:35 | NUR ---
RT PT RECEIVED TRACHED ON THE VENT WITH NOTED SETTINGS. PT IS AWAKE AND ALERT. VENT ALARMS ARE SET AND AUDIBLE WITH BVM BY BEDSIDE. ELECTRIC MOTOR REBUILDER CUFF PRESSURE NOTED. VENT IS PLUGGED INTO RED OUTLET. NO RESPIRATORY DISTRESS NOTED AT THIS TIME, WILL CONTINUE TO MONITOR. Addendum: 12/12/17 at 1804 by BERNADETTE BEST RT Amended: Links added.
[2017-12-12 07:51] LABS: EOSINOPHILS % (AUTO) 0.2 % (0.0-6.0); HEMATOCRIT 22 % (33-45); HEMOGLOBIN 7.5 g/dL (11.5-14.8); LYMPHOCYTES # (AUTO) 0.1 /CMM (0.8-4.8); LYMPHOCYTES % (AUTO) 2.4 % (20.0-44.0); MEAN CORPUSCULAR HEMOGLOBIN 31 PG (26.0-33.0); MEAN CORPUSCULAR HGB CONC 34 g/dl (31.0-36.0); MEAN CORPUSCULAR VOLUME 89 fL (82-100); MONOCYTES # (AUTO) 0.1 /CMM (0.1-1.30); MONOCYTES % (AUTO) 1.5 % (2.0-12.0); NEUTROPHILS # (AUTO) 3.4 /CMM (1.8-8.9); NEUTROPHILS % (AUTO) 95.9 % (43.0-81.0); RDW COEFFICIENT OF VARIATION 20.8 (11.5-15.0); RED BLOOD CELL COUNT(AUTO) 2.44 MIL/uL (4.0-5.2); WHITE BLOOD COUNT (AUTO) 3.5 K/uL (4.3-11.0)
--- NOTE | 2017-12-12 07:58 | NUR ---
RN ASHANTI NOTE: RECEIVED PATIENT IN BED, AWAKE AND NONVERBAL, BUT ABLE TO COMMUNICATE BY NODDING HER HEAD. ON CONTACT ISOLATION FOR MRSA NARES, E.COLI AND ESBL BLOOD. VENT-TRACH DEPENDENT. NO SOB NOTED. RESPIRATION EVEN AND UNLABORED. HOB ELEVATED. ON AD TAKER SR HR= 86. GT FEEDING OF NOVASOURCE RENAL @30CC/HR AND TOLERATING IT WELL. (R) UA MIDLINE IV NOTED PATENT AND INTACT W/ TRANSPARENT DRESSING CLEAN AND DRY. (R) SUBCLAVIAN HD CATH NOTED W/ DRESSING AND INTACT. NO FACIAL GRIMACING NOTED. BED ALARM AND LOCKED AT ALL TIMES. CALL LIGHT WITHIN REACH. NEEDS ANTICIPATED.
[2017-12-12 08:02] LABS: PLATELET COUNT (AUTO) 10 /CMM (150-450)
[2017-12-12 08:04] LABS: ALBUMIN 1.7 g/dL (3.4-5.0); BILIRUBIN,TOTAL 2.2 mg/dL (0.2-1.0); CALCIUM, SERUM 7.8 mg/dL (8.5-10.1); CREATININE 1.7 mg/dL (0.6-1.3); MAGNESIUM 1.9 mg/dL (1.8-2.4); PHOSPHORUS 2.2 mg/dL (2.5-4.9); POTASSIUM 3.4 mmol/L (3.5-5.1); TOTAL PROTEIN, SERUM 4.7 g/dL (6.4-8.2)
[2017-12-12] MEDS: MULTIVIT, IRON, MIN NO. 8, FA 1 TAB PO SCH (08:17)
[2017-12-12] MEDS: LEVOTHYROXINE SODIUM 50 MCG TABLET PO SCH (08:17)
[2017-12-12] MEDS: ASCORBIC ACID 500 MG TABLET PO SCH (08:17)
[2017-12-12] MEDS: FAMOTIDINE (20 MG) 20 MG TABLET PO SCH (08:17)
[2017-12-12] MEDS: FLUCONAZOLE (100 MG) 100 MG TABLET PO SCH (08:17)
[2017-12-12] MEDS: SUCRALFATE 1 G TABLET PO SCH ×4 (08:18→21:00)
[2017-12-12] MEDS: FLUOXETINE HCL 20 MG CAPSULE PO SCH (08:22)
[2017-12-12] MEDS: HYDROGEL DRESSING 90 GM TUBE TP SCH (08:23)
[2017-12-12] MEDS: Z GUARD REMEDY 2 OZ OINT TP SCH (08:23)
[2017-12-12] MEDS: MUPIROCIN OINT 2% 22 GM TUBE SCH ×2 (08:24→21:01)
--- NOTE | 2017-12-12 08:45 | NUR ---
RN ASHANTI NOTE: CALLED AND PAGED THE ON-CALL MD(DR. PINK) TO REPORT THE BUN AND PLATELET RESULT. AWAITING FOR MD TO CALL BACK. NO S/S OF BLEEDING NOTED. AND PATIENT IS SCHEDULED FOR HEMODIALYSIS TODAY.
[2017-12-12] MEDS ORDERED: ERGOCALCIFEROL (VITAMIN D 2) 50,000 UNIT CAPSULE PO SCH (09:00)
--- NOTE | 2017-12-12 09:06 | NUR ---
RT PT RECEIVED TRACHED ON THE VENT WITH NOTED SETTINGS. PT IS AWAKE AND ALERT. VENT ALARMS ARE SET AND AUDIBLE WITH BVM BY BEDSIDE. KNOTTING MACHINE OPERATOR CUFF PRESSURE NOTED. VENT IS PLUGGED INTO RED OUTLET. NO RESPIRATORY DISTRESS NOTED AT THIS TIME, WILL CONTINUE TO MONITOR.
[2017-12-12 09:10] LABS: BAND % (MANUAL) 8 % (0.0-5.0); LYMPHOCYTES % (MANUAL) 3 % (16-48); MONOCYTES % (MANUAL) 5 % (0-11.0); NEUTROPHILS % (MANUAL) 84 (42-76)
[2017-12-12] MEDS ORDERED: ALBUMIN 25% 25 GM in PREMIX 1 EA IV ONE (10:00)
--- NOTE | 2017-12-12 11:30 | NUR ---
STAINED GLASS WINDOW DESIGNER NOTE: DR. PINK PRESENT IN THE UNIT AND MADE HIM AWARE OF THE BUN, PLATELET AND POTASSIUM LEVEL OF THE PATIENT. MD WAS ALSO INFORMED THAT PATIENT HAD HEMODIALYSIS TODAY AND NO OUTPUT WAS REMOVED ONLY CLEANING PER HD NURSE. W/ NO NEW ORDER ON THE ABOVE LAB RESULTS. JOSE, DAUGHTER WAS PRESENT AT THE BEDSIDE AND MADE AWARE. PER MD, PATIENT CAN POSSIBLY GO BACK TO THE [facility] BY TOMORROW.
[2017-12-12] MEDS ORDERED: VANCOMYCIN 1 GM in IV D5W 250 ML IV ONE ×2 (12:00→15:00)
[2017-12-12] MEDS: EPOETIN ALFA (10,000 UNIT) 10,000 UNIT/ML VIAL SQ SCH (15:13)
[2017-12-12] MEDS: INSULIN REGULAR, HUMAN 100 UNIT/ML 3 ML VIAL SQ PRN (17:52)
[2017-12-12] MEDS: MEROPENEM 500 MG in IV NS 0.9% 50 ML IV SCH (18:34)
--- NOTE | 2017-12-12 19:19 | NUR ---
LIGHTER CAPTAIN NOTE: RECEIVED PATIENT IN BED, AWAKE AND NONVERBAL, COMMUNICATED BY NODDING HER HEAD. ON CONTACT ISOLATION FOR MRSA NARES, E.COLI AND ESBL BLOOD. VENT-TRACH DEPENDENT. NO SOB NOTED. RESPIRATION EVEN AND UNLABORED. HOB ELEVATED. ON FUEL OIL TRUCK DRIVER SR HR= 89. GT FEEDING OF NOVASOURCE RENAL @30CC/HR AND TOLERATING IT WELL. (R) UA MIDLINE IV NOTED PATENT AND INTACT W/ TRANSPARENT DRESSING CLEAN AND DRY. (R) SUBCLAVIAN HD CATH NOTED W/ DRESSING AND INTACT. HD DONE TODAY, PER HD NURSE NO OUTPUT FOR TODAY AND CLEANING WAS DONE. NO FACIAL GRIMACING NOTED. BED ALARM AND LOCKED AT ALL TIMES. CALL LIGHT WITHIN REACH. REPORT GIVEN TO PM SHIFT NURSE FOR CONTINUITY OF CARE.
--- NOTE | 2017-12-12 19:30 | NUR ---
CIRCUS SUPERVISOR INITIAL NOTES RECEIVED PATIENT AWAKE, NON-VERBAL VENT DEPENDENT. ABLE TO NOD YES OR NO TO SIMPLE QUESTIONS. DENIES PAIN OR DISCOMFORT AT THIS TIME. NO RESPIRATORY DISTRESS NOTED. WITH VENT SETTINGS AC 16 TV 450, FIO2 35% PEEP 5. TRACH C/D/I. ON TELE MONITOR SR 81. SKIN WARM AND DRY TO TOUCH. ISOLATION PRECAUTIONS OBSERVED. WITH GT PATENT AND INTACT, IN PLACE. MINIMAL RESIDUAL NOTED. HOB ELEVATED. SIDE RAILS UP AND LOCKED. BED KEPT AT LOWEST POSITION. CALL LIGHT KEPT WITHIN EASY REACH. WILL CONTINUE TO MONITOR.
[2017-12-12] MEDS: SIMVASTATIN 10 MG TABLET PO SCH (21:00)
[2017-12-12] MEDS: ACETAMINOPHEN 325 MG TABLET PO PRN (21:00)
[2017-12-13] VITALS (9 sets, daily range): BP systolic 99–117; BP diastolic 61–74
--- NOTE | 2017-12-13 00:15 | NUR ---
WAD IMPREGNATOR NOTES PATIENT NOTED WITH BS 54, RECHECKED 52. PATIENT IS AWAKE, ALERT. D50 IVP GIVEN ORDERED. BLOOD SUGAR RECHECKED 197. WILL CONTINUE TO MONITOR.
[2017-12-13] MEDS: BLOOD SUGAR DIAGNOSTIC 1 EACH STRIP IN SCH ×5 (00:56→23:37)
[2017-12-13] MEDS: DEXTROSE 50%-WATER 50 ML DISP.SYRIN IV PRN (00:56)
--- NOTE | 2017-12-13 01:42 | NUR ---
PT RECEIVED TRACHED ON THE VENT WITH NOTED SETTIGNS. VENT ALARMS ARE SET AND AUDIBLE WITH BVM BY BEDSIDE. MANAGER OF TRANSPORTATION CUFF PRESSURE NOTED. VENT IS PLUGGED INTO RED OUTLET. NO RESPIRATORY DISTRESS NOTED AT THIS TIME, WILL CONTINUE TO MONITOR. Addendum: 12/13/17 at 0142 by MOLLY GRAHAM RT Amended: Links added.
[2017-12-13] MEDS: MEROPENEM 500 MG in IV NS 0.9% 50 ML IV SCH ×2 (05:55→17:33)
[2017-12-13] MEDS ORDERED: VANCOMYCIN 500 MG in IV NS 0.9% 100 ML IV PRN (06:00)
[2017-12-13 07:09] LABS: BASOPHILS % (AUTO) 1.1 % (0.0-2.0); EOSINOPHILS % (AUTO) 0.8 % (0.0-6.0); LYMPHOCYTES # (AUTO) 0.2 /CMM (0.8-4.8); LYMPHOCYTES % (AUTO) 10.4 % (20.0-44.0); MEAN CORPUSCULAR HEMOGLOBIN 31 PG (26.0-33.0); MEAN CORPUSCULAR HGB CONC 34 g/dl (31.0-36.0); MEAN CORPUSCULAR VOLUME 89 fL (82-100); MONOCYTES % (AUTO) 2.5 % (2.0-12.0); NEUTROPHILS # (AUTO) 1.7 /CMM (1.8-8.9); NEUTROPHILS % (AUTO) 85.2 % (43.0-81.0); RDW COEFFICIENT OF VARIATION 20.7 (11.5-15.0); RED BLOOD CELL COUNT(AUTO) 2.11 MIL/uL (4.0-5.2)
--- NOTE | 2017-12-13 07:22 | NUR ---
WOUND CARE CONSULT WOUND CARE RECEIVED CONSULT FOR BILATERAL POSTERIOR THIGH EXCORIATIONS. WOUND CARE WILL DEFER TO SURGICAL TEAM WHO ARE CURRENTLY FOLLOWING.
[2017-12-13 07:32] LABS: CALCIUM, SERUM 7.9 mg/dL (8.5-10.1); CREATININE 1.5 mg/dL (0.6-1.3); MAGNESIUM 1.8 mg/dL (1.8-2.4); PHOSPHORUS 1.6 mg/dL (2.5-4.9); POTASSIUM 3.4 mmol/L (3.5-5.1)
--- NOTE | 2017-12-13 07:37 | NUR ---
ASSEMBLY LOADER CLOSING NOTES NO SIGNIFICANT CHANGES OVERNIGHT. NO RESPIRATORY DISTRESS NOTED TOLERATING VENT SETTINGS. ISOLATION PRECAUTIONS OBSERVED. TOLERATING GTF. KEPT CLEAN AND DRY. TURNED AND REPOSITIONED Q2 AND PRN. WOUND TX PROVIDED. HOB ELEVATED. SIDE RAILS UP AND LOCKED. BED KEPT AT LOWEST POSITION. CALL LIGHT KEPT WITHIN EASY REACH. CONTINUITY OF CARE ENDORSED TO AM NURSE. Addendum: 12/13/17 at 0745 by IRASEMA MARTE RN ADD TO NOTES- NO S/S OF BLEEDING NOTED
[2017-12-13 07:42] LABS: HEMATOCRIT 19 % (33-45); HEMOGLOBIN 6.5 g/dL (11.5-14.8); PLATELET COUNT (AUTO) 4 /CMM (150-450)
[2017-12-13 08:25] LABS: BAND % (MANUAL) 10 % (0.0-5.0); LYMPHOCYTES % (MANUAL) 11 % (16-48); MONOCYTES % (MANUAL) 5 % (0-11.0); NEUTROPHILS % (MANUAL) 74 (42-76)
[2017-12-13] MEDS: FAMOTIDINE (20 MG) 20 MG TABLET PO SCH (08:34)
[2017-12-13] MEDS: LEVOTHYROXINE SODIUM 50 MCG TABLET PO SCH (08:34)
[2017-12-13] MEDS: SUCRALFATE 1 G TABLET PO SCH ×4 (08:34→21:12)
[2017-12-13] MEDS: ASCORBIC ACID 500 MG TABLET PO SCH (08:34)
[2017-12-13] MEDS: MULTIVIT, IRON, MIN NO. 8, FA 1 TAB PO SCH (08:34)
[2017-12-13] MEDS: FLUOXETINE HCL 20 MG CAPSULE PO SCH (08:34)
[2017-12-13] MEDS: FLUCONAZOLE (100 MG) 100 MG TABLET PO SCH (08:34)
[2017-12-13] MEDS: HYDROGEL DRESSING 90 GM TUBE TP SCH (08:35)
[2017-12-13] MEDS: Z GUARD REMEDY 2 OZ OINT TP SCH (08:35)
[2017-12-13] MEDS: MUPIROCIN OINT 2% 22 GM TUBE SCH ×2 (08:43→21:12)
[2017-12-13] MEDS: HYDROMORPHONE INJ 0.5 MG/0.5 ML SYRINGE IV PRN ×2 (11:51→23:55)
[2017-12-13] MEDS ORDERED: Sodium Phosphate 15 MMOL in IV D5W 250 ML IV ONE (13:00)
--- NOTE | 2017-12-13 17:00 | NUR ---
RN NOTE PT HAD TRANSFUSION 1 UNIT PRBCs, TOLERATED WELL, NO REACTION.
--- NOTE | 2017-12-13 19:30 | NUR ---
TANK PUMPER PANELBOARD INITIAL NOTES RECEIVED PATIENT AWAKE, NON-VERBAL VENT DEPENDENT. ABLE TO NOD YES OR NO TO SIMPLE QUESTIONS. C/O 5/10 PAIN AT THIS TIME. NO RESPIRATORY DISTRESS NOTED. WITH VENT SETTINGS AC 16 TV 450, FIO2 35% PEEP 5. TRACH C/D/I. ON TELE MONITOR SR 93. SKIN WARM AND DRY TO TOUCH. PER AM NURSE PLATELET COUNT 4 MD AWARE WITH NNO. NO S/S OF BLEEDING AT THIS TIME. ISOLATION PRECAUTIONS OBSERVED. WITH GT PATENT AND INTACT, IN PLACE. MINIMAL RESIDUAL NOTED. HOB ELEVATED. SIDE RAILS UP AND LOCKED. BED KEPT AT LOWEST POSITION. CALL LIGHT KEPT WITHIN EASY REACH. WILL CONTINUE TO MONITOR.
[2017-12-13] MEDS: ACETAMINOPHEN 325 MG TABLET PO PRN (21:12)
[2017-12-13] MEDS: SIMVASTATIN 10 MG TABLET PO SCH (21:12)
[2017-12-13] MEDS: RENAL NOVASOURCE 1,000 ML BOTTLE GT SCH (23:45)
[2017-12-14] VITALS (9 sets, daily range): BP systolic 100–111; BP diastolic 57–82
[2017-12-14] MEDS: MEROPENEM 500 MG in IV NS 0.9% 50 ML IV SCH ×2 (05:24→17:18)
[2017-12-14] MEDS: BLOOD SUGAR DIAGNOSTIC 1 EACH STRIP IN SCH ×3 (05:30→17:28)
[2017-12-14 07:13] LABS: BASOPHILS % (AUTO) 0.1 % (0.0-2.0); EOSINOPHILS % (AUTO) 0.3 % (0.0-6.0); HEMATOCRIT 26 % (33-45); HEMOGLOBIN 8.8 g/dL (11.5-14.8); LYMPHOCYTES # (AUTO) 0.2 /CMM (0.8-4.8); LYMPHOCYTES % (AUTO) 4.1 % (20.0-44.0); MEAN CORPUSCULAR HEMOGLOBIN 31 PG (26.0-33.0); MEAN CORPUSCULAR HGB CONC 34 g/dl (31.0-36.0); MEAN CORPUSCULAR VOLUME 89 fL (82-100); MONOCYTES % (AUTO) 0.7 % (2.0-12.0); NEUTROPHILS # (AUTO) 4.5 /CMM (1.8-8.9); NEUTROPHILS % (AUTO) 94.8 % (43.0-81.0); RDW COEFFICIENT OF VARIATION 18.1 (11.5-15.0); RED BLOOD CELL COUNT(AUTO) 2.89 MIL/uL (4.0-5.2); WHITE BLOOD COUNT (AUTO) 4.7 K/uL (4.3-11.0)
--- NOTE | 2017-12-14 07:28 | NUR ---
SOCIAL WORK ASSISTANT CLOSING NOTES NO SIGNIFICANT CHANGES OVERNIGHT. ALL NEEDS ANTICIPATED AND MET. NO RESPIRATORY DISTRESS NOTED. TOLERATING VENT SETTINGS. TOLERATING GTF. NO S/S OF BLEEDING. KEPT CLEAN AND DRY. TURNED AND REPOSITIONED Q2 AND PRN. WOUND TX PROVIDED. HOB ELEVATED. SIDE RAILS UP AND LOCKED. BED KEPT AT LOWEST POSITION. ISOLATION PRECAUTIONS OBSERVED. CONTINUITY OF CARE ENDORSED TO AM NURSE.
[2017-12-14 07:30] LABS: PLATELET COUNT (AUTO) 4 /CMM (150-450)
[2017-12-14 07:32] LABS: ALBUMIN 1.6 g/dL (3.4-5.0); BILIRUBIN,TOTAL 2.9 mg/dL (0.2-1.0); CALCIUM, SERUM 8.1 mg/dL (8.5-10.1); CREATININE 1.7 mg/dL (0.6-1.3); MAGNESIUM 1.9 mg/dL (1.8-2.4); PHOSPHORUS 3.4 mg/dL (2.5-4.9); POTASSIUM 3.3 mmol/L (3.5-5.1); TOTAL PROTEIN, SERUM 4.5 g/dL (6.4-8.2)
--- NOTE | 2017-12-14 08:00 | NUR ---
TELE1/RN AM SHIFT INITIAL NOTES RECEIVED PT ASLEEP IN BED, AROUSEABLE, PT A/O X 1, ABLE TO NOD TO RESPONSE, NO ACUTE CHANGE OF CONDITION OR ACTIVE BLEEDING NOTED. ON VENTILATOR WITH RATES SET PRESCRIBED, SATURATING @ 100%, LUNG SOUNDS RHONCHI, SUCTIONED FOR AIRWAY CLEARANCE, WITH SINUS RHYTHM, HR 91, IV SITE ON TKO, NO S/S OF INFECTION, GT FEEDING ON GOING @ 30CC/HR, NO GASTRIC RESIDUAL NOTED. PT IS COMFORTABLE, SCHEDULED AM MEDS TO BE GIVEN. CL WITHIN [id number], SAFETY MAINTAINED AND ISOLATION OBSERVED. ON GOING MONITORING.
[2017-12-14] MEDS: ASCORBIC ACID 500 MG TABLET PO SCH (08:57)
[2017-12-14] MEDS: FLUCONAZOLE (100 MG) 100 MG TABLET PO SCH (08:57)
[2017-12-14] MEDS: SUCRALFATE 1 G TABLET PO SCH ×4 (08:57→21:36)
[2017-12-14] MEDS: FLUOXETINE HCL 20 MG CAPSULE PO SCH (08:57)
[2017-12-14] MEDS: MULTIVIT, IRON, MIN NO. 8, FA 1 TAB PO SCH (08:57)
[2017-12-14] MEDS: LEVOTHYROXINE SODIUM 50 MCG TABLET PO SCH (08:58)
[2017-12-14] MEDS: HYDROGEL DRESSING 90 GM TUBE TP SCH (08:58)
[2017-12-14] MEDS: Z GUARD REMEDY 2 OZ OINT TP SCH (08:58)
[2017-12-14] MEDS: MUPIROCIN OINT 2% 22 GM TUBE SCH ×2 (09:00→21:36)
[2017-12-14] MEDS: FAMOTIDINE (20 MG) 20 MG TABLET PO SCH (09:17)
[2017-12-14 09:28] LABS: BAND % (MANUAL) 11 % (0.0-5.0); LYMPHOCYTES % (MANUAL) 8 % (16-48); MONOCYTES % (MANUAL) 2 % (0-11.0); NEUTROPHILS % (MANUAL) 79 (42-76)
[2017-12-14] MEDS ORDERED: POTASSIUM CHLORIDE 10 MEQ TABLET.SA PO ONE (12:00)
[2017-12-14] MEDS: INSULIN REGULAR, HUMAN 100 UNIT/ML 3 ML VIAL SQ PRN (12:39)
[2017-12-14] MEDS ORDERED: POTASSIUM CL. PREMIX PERIPHER. 50 ML IV SCH (13:00)
[2017-12-14] MEDS: EPOETIN ALFA (10,000 UNIT) 10,000 UNIT/ML VIAL SQ SCH (14:55)
--- NOTE | 2017-12-14 19:30 | NUR ---
RN INITIAL NOTES RECEIVED PATIENT RESTING COMFORTABLY IN BED, AROUSABLE TO VERBAL AND TACTILE STIMULI. DENIES ANY PAIN AND DISCOMFORT, NO DISTRESS. ON MECH VENT VIA TRACH, TOLERATING WELL, TRACH GUARD IN PLACE. AIRWAY KEPT PATENT. DAVID MIDLINE FLUSHED AND INTACT, GOOD BLOOD RETURN NOTED. GT FLUSHED AND PATENT, FEEDING TOLERATING WELL, NO GASTRIC RESIDUAL NOTED. HD CATH ON R SUBCLAVIAN WITH INTACT DRESSING. ISOLATION PRECAUTION OBSERVED. TURNED AND REPOSITIONED. NEEDS ANTICIPATED AND MET. SAFETY AND COMFORT ENSURED. BED IN LOW AND LOCKED POSITION. CALL LIGHT IN REACH. WILL MONITOR.
--- NOTE | 2017-12-14 19:34 | NUR ---
TELE1/RN AM SHIFT END NOTES NO ACUTE CHANGE OF CONDITION NOTED DURING THE SHIFT. PT ENDORSED TO PM NURSE TO CONTINUE CARE, ALSO ENDORSED TO TRANSFUSE 1 UNIT PLATELET ONCE IT BECOMES AVAILABLE. CL WITHIN REACHED, SAFETY MAINTAINED AND ISOLATION OBSERVED.
--- NOTE | 2017-12-14 21:00 | NUR ---
RN NOTE 1u OF PLATELETS TRANSFUSED ORDERED. TOLERATED WELL, NO TRANSFUSION REACTION. VS STABLE.
[2017-12-14] MEDS: SIMVASTATIN 10 MG TABLET PO SCH (21:36)
[2017-12-15] VITALS: BP 105/76
[2017-12-15] MEDS: HYDROMORPHONE INJ 0.5 MG/0.5 ML SYRINGE IV PRN (00:16)
[2017-12-15] MEDS: BLOOD SUGAR DIAGNOSTIC 1 EACH STRIP IN SCH ×4 (00:16→18:02)
[2017-12-15] MEDS: DEXTROSE 50%-WATER 50 ML DISP.SYRIN IV PRN (00:16)
--- NOTE | 2017-12-15 01:19 | NUR ---
RN NOTE PATIENT'S BS AT 0000, 58. D50 GIVEN ORDERED. RECHECKED AND NOW, BS IS 171. CONT MONITORING.
[2017-12-15 04:00] VITALS: BP 105/77
[2017-12-15] MEDS: INSULIN REGULAR, HUMAN 100 UNIT/ML 3 ML VIAL SQ PRN ×3 (05:19→18:03)
[2017-12-15] MEDS: MEROPENEM 500 MG in IV NS 0.9% 50 ML IV SCH ×2 (05:19→17:57)
--- NOTE | 2017-12-15 05:36 | NUR ---
RECEIVED PT TRACHED ON VENT ON MD ORDERED SETTINGS. VENT/ ALARMS WELL FUNCTIONING WITH AMBU BAG AT BEDSIDE. NO SOB/ DISTRESS NOTED/ SX'D Q2 +PRN FOR MOD THICK YELLOW SECRETIONS. NO SOB NOTED POST SX. JOHNATHAN/ JAHAIRA CHANGED Addendum: 12/15/17 at 0536 by IVÁN HANSEN RT Amended: Links added.
--- NOTE | 2017-12-15 06:46 | NUR ---
RN CLOSING NOTES NO DISTRESS AT THIS TIME. NO SIGNS OF BLEEDING, PLATELET TRANSFUSED ORDERED. TOLERATED TRACH WELL, AIRWAY KEPT PATENT. WOUND CARE AND TRACH CARE RENDERED. GTF ORDERED, BS 171, INSULIN GIVEN ORDERED. PATIENT TURNED AND REPOSITIONED. SAFETY AND COMFORT ENSURED. BED IN LOW AND LOCKED POSITION. ISOLATION PRECAUTION OBSERVED.
[2017-12-15 07:59] LABS: CALCIUM, SERUM 8.4 mg/dL (8.5-10.1); CREATININE 1.5 mg/dL (0.6-1.3); POTASSIUM 3.3 mmol/L (3.5-5.1)
[2017-12-15 08:00] VITALS: BP 113/81
--- NOTE | 2017-12-15 08:00 | NUR ---
RN NOTE: (INITIAL) RECEIVED PATIENT ASLEEP, EASILY AROUSAL. OPEN EYES TO VERBAL & TACTILE STIMULI. ON VENT-TRAC, SETTINGS TOLERATING WELL. NO BREATHING DIFFICULTY NOTED. TUBE FEEDING RUNNING ORDERED. TOLERATING WELL. HOB ELEVATED. SAFETY MEASURES OBSERVED, ASPIRATION PRECAUTIONS OBSERVED. WILL CONTINUE TO MONITOR. CLOSELY.
[2017-12-15] MEDS: FAMOTIDINE (20 MG) 20 MG TABLET PO SCH (08:43)
[2017-12-15] MEDS: FLUCONAZOLE (100 MG) 100 MG TABLET PO SCH (08:43)
[2017-12-15] MEDS: MULTIVIT, IRON, MIN NO. 8, FA 1 TAB PO SCH (08:43)
[2017-12-15] MEDS: FLUOXETINE HCL 20 MG CAPSULE PO SCH (08:43)
[2017-12-15] MEDS: ASCORBIC ACID 500 MG TABLET PO SCH (08:43)
[2017-12-15] MEDS: LEVOTHYROXINE SODIUM 50 MCG TABLET PO SCH (08:43)
[2017-12-15] MEDS: Z GUARD REMEDY 2 OZ OINT TP SCH (08:44)
[2017-12-15] MEDS: HYDROGEL DRESSING 90 GM TUBE TP SCH (08:44)
[2017-12-15] MEDS: MUPIROCIN OINT 2% 22 GM TUBE SCH ×2 (08:44→21:05)
[2017-12-15] MEDS: SUCRALFATE 1 G TABLET PO SCH ×4 (08:48→21:05)
[2017-12-15 12:00] VITALS: BP 107/76
[2017-12-15] MEDS: POTASSIUM CL. PREMIX PERIPHER. 50 ML IV SCH ×2 (12:38→14:39)
[2017-12-15 12:42] LABS: EOSINOPHILS % (AUTO) 1.1 % (0.0-6.0); HEMATOCRIT 24 % (33-45); HEMOGLOBIN 8.2 g/dL (11.5-14.8); LYMPHOCYTES # (AUTO) 0.1 /CMM (0.8-4.8); LYMPHOCYTES % (AUTO) 8.2 % (20.0-44.0); MEAN CORPUSCULAR HEMOGLOBIN 31 PG (26.0-33.0); MEAN CORPUSCULAR HGB CONC 34 g/dl (31.0-36.0); MEAN CORPUSCULAR VOLUME 89 fL (82-100); MONOCYTES % (AUTO) 0.2 % (2.0-12.0); NEUTROPHILS # (AUTO) 1.6 /CMM (1.8-8.9); NEUTROPHILS % (AUTO) 90.5 % (43.0-81.0); RDW COEFFICIENT OF VARIATION 19.1 (11.5-15.0); RED BLOOD CELL COUNT(AUTO) 2.68 MIL/uL (4.0-5.2)
[2017-12-15 12:57] LABS: PLATELET COUNT (AUTO) 14 /CMM (150-450); WHITE BLOOD COUNT (AUTO) 1.8 K/uL (4.3-11.0)
[2017-12-15 13:13] LABS: BAND % (MANUAL) 1 % (0.0-5.0); LYMPHOCYTES % (MANUAL) 8 % (16-48); MONOCYTES % (MANUAL) 6 % (0-11.0); NEUTROPHILS % (MANUAL) 85 (42-76)
[2017-12-15 16:00] VITALS: BP 97/68
--- NOTE | 2017-12-15 17:21 | NUR ---
RN NOTE: CRITICAL LAB VALUES RECEIVED LAB RESULTS CRITICAL LOW WBC 1.8 & PLATELETS 14, DR. ELIJAH WILKERSON MADE AWARE. NO NEW ORDERS. SPOKE WITH DR. PEDERSON, RECEIVED NEW ORDERS, STAT CBC. LABORATORY DIRECTOR TRIED X4, NO BLOOD RETURN FROM MIDLINE. INFORMED DR. BUI , RECEIVED NEW ORDERS TO START NEUPOGEN 300MCG SQ DAILY. ORDERS NOTED & CARRIED OUT.
[2017-12-15] MEDS: RENAL NOVASOURCE 1,000 ML BOTTLE GT SCH (17:57)
--- NOTE | 2017-12-15 17:58 | NUR ---
Pt tolerated current vent settings well. No changes made. Pt trach is secure. Vent is plugged into a red outlet, alarms are set and audible, and BVM is at bedside. Addendum: 12/15/17 at 1758 by PETRA RIZO RT Amended: Links added.
[2017-12-15] MEDS ORDERED: FILGRASTIM (300 MCG) 300 MCG/ML VIAL SQ SCH (18:00)
--- NOTE | 2017-12-15 18:58 | NUR ---
RN NOTE: PATIENT REMAINS ALERT AWAKE ORIENTED TO NAME ONLY. VENT -TRAC SETTINGS TOLERATING WELL. SAFETY MEASURES/ASPIRATION PRECAUTIONS OBSERVED. PATIENT CLEAN & DRY. TUBE FEEDING TOLERATING WELL. WILL ENDORSE TO PM SHIFT FOR CONTINUITY OF CARE.
--- NOTE | 2017-12-15 19:20 | NUR ---
DOUBLE CUTTER NOTES RECEIVED REPORT FROM AM RN. PATIENT A/A/O X1, UNABLE TO VERBALIZE NEEDS BUT MOUTHS SOME WORDS. TRACH INTACT W/ VENT SETTINGS AC 16, TV 450, FIO2 35%, PEEP 5. NO RESPIRATORY DISTRESS NOTED. ON TELE SINUS RHYTHM, HR 91. RIGHT UPPER ARM MIDLINE INTACT W/ DRESSING CDI, TKO. RIGHT SUBCLAVIAN HD CATH INTACT W/ DRESSING CDI, NO COMPLICATIONS NOTED. G-TUBE INTACT & FLUSHING WELL, NO SIGNS OF LEAKING. GTF NOVASOURCE @ 30 ML/HR, TOLERATING WELL W/ NO RESIDUALS NOTED @ THIS TIME. NO S/S OF PAIN OR DISCOMFORT @ THIS TIME. SAFETY MEASURES IN PLACE W/ SIDE RAILS UP, BED LOCKED & IN LOWEST POSITION & BED ALARM ON. WILL CONTINUE TO MONITOR.
[2017-12-15 20:00] VITALS: BP 108/76
[2017-12-15] MEDS: SIMVASTATIN 10 MG TABLET PO SCH (21:05)
[2017-12-16] VITALS (15 sets, daily range): BP systolic 100–130; BP diastolic 68–94
[2017-12-16] MEDS: INSULIN REGULAR, HUMAN 100 UNIT/ML 3 ML VIAL SQ PRN ×3 (00:06→17:51)
[2017-12-16] MEDS: BLOOD SUGAR DIAGNOSTIC 1 EACH STRIP IN SCH ×4 (00:06→17:44)
[2017-12-16] MEDS: MEROPENEM 500 MG in IV NS 0.9% 50 ML IV SCH ×2 (05:46→17:46)
--- NOTE | 2017-12-16 06:51 | NUR ---
ROLL FORMING MACHINE SET UP OPERATOR CLOSING NOTES NO SIGNIFICANT CHANGES THROUGHOUT SHIFT. CONTINUED TO TOLERATE VENT SETTINGS. NO LEAKING NOTED W/ GT SITE & NO RESIDUALS NOTED. PATIENT CURRENTLY IN DIALYSIS @ THIS TIME. WILL ENDORSE ANA TO ONCOMING NURSE.
[2017-12-16] MEDS ORDERED: ALBUMIN 25% 25 GM in PREMIX 1 EA IV ONE (07:30)
--- NOTE | 2017-12-16 07:49 | NUR ---
ELECTRIC CONTAINER TESTER OPENING NOTES RECEIVED PT FROM NIGHTSHIFT NURSE IN STABLE CONDITION. PT IS CURRENTLY RECEIVING DIALYSIS. NO SOB OR SIGNS OF DISTRESS NOTED. BREATHING IS EVEN AND UNLABORED. PT IS SR ON THE TELE MONITOR WITH A HR OF 88. GTUBE NOTED TO BE PATENT AND INTACT. NO LEAKAGE NOTED AT THIS TIME. PLACEMENT VERIFIED VIA AUSCULTATION. PT IS RECEIVING TUBE FEEDING INFUSION ORDERED. PT TOLERATING FEEDING WELL. NO RESIDUALS ASPIRATED AT THIS TIME. RIGHT UPPER ARM MIDLINE NOTED TO BE PATENT AND INTACT. BED IN LOW LOCKED POSITION, SIDE RAILS UP X3, CALL LIGHT WITHIN REACH, BED ALARM ON. WILL CONTINUE TO MONITOR
[2017-12-16 08:15] LABS: CALCIUM, SERUM 8.1 mg/dL (8.5-10.1); CREATININE 0.8 mg/dL (0.6-1.3); MAGNESIUM 1.8 mg/dL (1.8-2.4); PHOSPHORUS 1.6 mg/dL (2.5-4.9); POTASSIUM 3.3 mmol/L (3.5-5.1)
[2017-12-16 08:19] LABS: EOSINOPHILS % (AUTO) 0.3 % (0.0-6.0); LYMPHOCYTES # (AUTO) 0.1 /CMM (0.8-4.8); LYMPHOCYTES % (AUTO) 1.1 % (20.0-44.0); MEAN CORPUSCULAR HEMOGLOBIN 31 PG (26.0-33.0); MEAN CORPUSCULAR HGB CONC 35 g/dl (31.0-36.0); MEAN CORPUSCULAR VOLUME 88 fL (82-100); MONOCYTES % (AUTO) 0.1 % (2.0-12.0); NEUTROPHILS # (AUTO) 8.3 /CMM (1.8-8.9); NEUTROPHILS % (AUTO) 98.5 % (43.0-81.0); RED BLOOD CELL COUNT(AUTO) 2.03 MIL/uL (4.0-5.2); WHITE BLOOD COUNT (AUTO) 8.4 K/uL (4.3-11.0)
[2017-12-16 08:31] LABS: HEMATOCRIT 18 % (33-45); HEMOGLOBIN 6.2 g/dL (11.5-14.8)
[2017-12-16 08:32] LABS: PLATELET COUNT (AUTO) 5 /CMM (150-450)
[2017-12-16] MEDS: FLUOXETINE HCL 20 MG CAPSULE PO SCH (08:42)
[2017-12-16] MEDS: MULTIVIT, IRON, MIN NO. 8, FA 1 TAB PO SCH (08:42)
[2017-12-16] MEDS: SUCRALFATE 1 G TABLET PO SCH ×4 (08:42→22:51)
[2017-12-16] MEDS: ASCORBIC ACID 500 MG TABLET PO SCH (08:42)
[2017-12-16] MEDS: FLUCONAZOLE (100 MG) 100 MG TABLET PO SCH (08:42)
[2017-12-16] MEDS: FAMOTIDINE (20 MG) 20 MG TABLET PO SCH (08:43)
[2017-12-16] MEDS: LEVOTHYROXINE SODIUM 50 MCG TABLET PO SCH (08:43)
[2017-12-16] MEDS: Z GUARD REMEDY 2 OZ OINT TP SCH (08:45)
[2017-12-16] MEDS: HYDROGEL DRESSING 90 GM TUBE TP SCH (08:45)
[2017-12-16] MEDS: MUPIROCIN OINT 2% 22 GM TUBE SCH ×2 (08:46→22:52)
--- NOTE | 2017-12-16 09:47 | NUR ---
PRODUCTION ENGINEER NOTES DR. CANCHOLA WAS PAGED IN REGARDS TO PT'S CRITICAL VALUES. AWAITING CALL BACK
[2017-12-16 09:52] LABS: BAND % (MANUAL) 25 % (0.0-5.0); LYMPHOCYTES % (MANUAL) 2 % (16-48); MONOCYTES % (MANUAL) 2 % (0-11.0); NEUTROPHILS % (MANUAL) 71 (42-76)
--- NOTE | 2017-12-16 10:39 | NUR ---
FITTER/WELDER NOTES DR. SAGASTUME PAGED A SECOND TIME. AWAITING CALL BACK
--- NOTE | 2017-12-16 10:59 | NUR ---
BRICK PAVING CHECKER NOTES NO CALL RECEIVED FROM DR. CANCHOLA. DR KAMARA WAS NOTIFIED AND ORDERED 1 UNIT OF PLATELETS AND 2 UNITS OF PRBC. WILL CARRY OUT ORDER
--- NOTE | 2017-12-16 11:38 | NUR ---
NETWORK PROGRAM MANAGER NOTES BLOOD BANK CALLED IN REGARDS TO ORDERS. PER COUNSELOR AID, "THE [facility] WILL BE NOTIFIED TO DELIVER PLATELET WHICH MAY TAKE UP TO 2 HRS". WILL AWAIT FOR PLATELET DELIVERY AND BEGIN BLOOD TRANSFUSION ONCE BLOOD IS READY
[2017-12-16] MEDS: POTASSIUM CL. PREMIX PERIPHER. 50 ML IV SCH ×2 (12:59→14:11)
[2017-12-16] MEDS ORDERED: Sodium Phosphate 30 MMOL in IV D5W 250 ML IV ONE (13:30)
[2017-12-16] MEDS: Sodium Phosphate 15 MMOL in IV D5W 250 ML IV SCH (16:31)
[2017-12-16] MEDS: RENAL NOVASOURCE 1,000 ML BOTTLE GT SCH (17:44)
[2017-12-16] MEDS ORDERED: TBO-FILGRASTIM 300 MCG/0.5 ML SYRINGE SQ SCH (18:00)
--- NOTE | 2017-12-16 18:43 | NUR ---
RT END OF THE SHIFT REPORT, PT. 52 Y OLD FEMALE REMAIN STABLE SINCE 0700 AWAKE, ALERT FOLLOWING COMMAND. TRACHED VASYL # XLT 8 ON MECHANICAL VENT, WITH NOTED SETTINGS. EQUAL CHEST RISE NOTED, TRACH IN GOOD POSITION AND SECURE. VARUN VENT WELL T/O DAY B/S RALES BILATERALLY AND SUX'D FOR MIKELL AMT OF YELLOW SECRETIONS. VENT PLUGGED INTO RED OUTLET, AMBU BAG AT THE BEDSIDE. CONTINUE FOR CARE AND MONITORING, REPORT WILL PASS TO PM SHIFT. Addendum: 12/16/17 at 1845 by RUBY LOPEZ RT Amended: Links added.
--- NOTE | 2017-12-16 18:54 | NUR ---
SADDLE STITCHING MACHINE OPERATOR CLOSING NOTES PT STABLE AT THIS TIME. ALL NEEDS MET DURING SHIFT AND ORDERS CARRIED OUT ACCORDINGLY. PT TOLERATING FEEDING WELL. PLATLETS WERE ADMINISTERED ORDERED. NO TRANSFUSION REACTIONS NOTED. PRBC TRANSFUSION HAS BEGIN. VITALS REMIAN STABLE AFTER 15 MIN. NO S/S OF TRANSFUSION REACTION NOTED. WILL ENDORSE TO NIGHTSHIFT NURSE TO COMPLETE TRANSFUSION, TRANSFUSE 1 MORE BAG, AND COMPLETE SODIUM PHOSPHATE INFUSION.
[2017-12-16 22:15] LABS: OCCULT BLOOD STOOL POSITIVE (NEGATIVE)
[2017-12-16] MEDS: SIMVASTATIN 10 MG TABLET PO SCH (22:51)
[2017-12-17] VITALS: BP 117/84
[2017-12-17] MEDS: Sodium Phosphate 15 MMOL in IV D5W 250 ML IV SCH (00:31)
[2017-12-17] MEDS: BLOOD SUGAR DIAGNOSTIC 1 EACH STRIP IN SCH ×5 (00:59→23:54)
[2017-12-17] MEDS: INSULIN REGULAR, HUMAN 100 UNIT/ML 3 ML VIAL SQ PRN ×2 (01:06→23:56)
[2017-12-17 01:38] LABS: HEMOGLOBIN 11.5 g/dL (11.5-14.8)
[2017-12-17 04:00] VITALS: BP 116/83
[2017-12-17] MEDS: MEROPENEM 500 MG in IV NS 0.9% 50 ML IV SCH ×2 (06:10→17:52)
[2017-12-17 07:28] LABS: BASOPHILS % (AUTO) 0.1 % (0.0-2.0); EOSINOPHILS % (AUTO) 0.2 % (0.0-6.0); HEMATOCRIT 33 % (33-45); HEMOGLOBIN 11.3 g/dL (11.5-14.8); LYMPHOCYTES # (AUTO) 0.3 /CMM (0.8-4.8); LYMPHOCYTES % (AUTO) 2.2 % (20.0-44.0); MEAN CORPUSCULAR HEMOGLOBIN 31 PG (26.0-33.0); MEAN CORPUSCULAR HGB CONC 35 g/dl (31.0-36.0); MEAN CORPUSCULAR VOLUME 89 fL (82-100); MONOCYTES # (AUTO) 0.1 /CMM (0.1-1.30); MONOCYTES % (AUTO) 0.4 % (2.0-12.0); NEUTROPHILS # (AUTO) 14.5 /CMM (1.8-8.9); NEUTROPHILS % (AUTO) 97.1 % (43.0-81.0); RDW COEFFICIENT OF VARIATION 16.2 (11.5-15.0); RED BLOOD CELL COUNT(AUTO) 3.66 MIL/uL (4.0-5.2); WHITE BLOOD COUNT (AUTO) 14.9 K/uL (4.3-11.0)
[2017-12-17 07:39] LABS: PLATELET COUNT (AUTO) 11 /CMM (150-450)
[2017-12-17 07:51] LABS: CALCIUM, SERUM 8.8 mg/dL (8.5-10.1); CREATININE 1.3 mg/dL (0.6-1.3); MAGNESIUM 1.8 mg/dL (1.8-2.4); PHOSPHORUS 4.3 mg/dL (2.5-4.9); POTASSIUM 3.7 mmol/L (3.5-5.1)
--- NOTE | 2017-12-17 07:51 | NUR ---
RN NOTES RECEIVED PATIENT IN BED RESTING ALERT, ORIENTED X1. PATIENT VENT DEPENDENT, VENT SETTINGS NOTED. WITH MIDLINE, INTACT PATENT. BED IN LOW LOCKED POSITION CALL LIGHT WITHIN REACH. PATIENT POST BLOOD TRANSFUSION. WILL CONTINUE TO MONITOR.
[2017-12-17 08:00] VITALS: BP 113/84
[2017-12-17] MEDS: FLUOXETINE HCL 20 MG CAPSULE PO SCH (08:16)
[2017-12-17] MEDS: LEVOTHYROXINE SODIUM 50 MCG TABLET PO SCH (08:16)
[2017-12-17] MEDS: ASCORBIC ACID 500 MG TABLET PO SCH (08:16)
[2017-12-17] MEDS: MULTIVIT, IRON, MIN NO. 8, FA 1 TAB PO SCH (08:16)
[2017-12-17] MEDS: SUCRALFATE 1 G TABLET PO SCH ×4 (08:16→21:34)
[2017-12-17] MEDS: FAMOTIDINE (20 MG) 20 MG TABLET PO SCH (08:16)
[2017-12-17] MEDS: MUPIROCIN OINT 2% 22 GM TUBE SCH ×2 (08:17→21:34)
[2017-12-17] MEDS: FLUCONAZOLE (100 MG) 100 MG TABLET PO SCH (08:17)
[2017-12-17] MEDS: Z GUARD REMEDY 2 OZ OINT TP SCH (08:17)
[2017-12-17] MEDS: HYDROGEL DRESSING 90 GM TUBE TP SCH (08:18)
[2017-12-17 09:46] LABS: BAND % (MANUAL) 52 % (0.0-5.0); NEUTROPHILS % (MANUAL) 48 (42-76)
[2017-12-17 12:00] VITALS: BP_SYST 103; BP_SYST 116; BP_DIAS 71; BP_DIAS 83
--- NOTE | 2017-12-17 13:00 | NUR ---
LANDSCAPING SPECIALIST NOTES PATIENT NOTED WITH LIQUID DIARRHEA ISSA BURIAL VAULT MAKER NOTIFIED NO NEW ORDERS GIVEN STATES NO NEED FOR STOOL SAMPLE CONTINUE TO MONITOR.
[2017-12-17] MEDS: EPOETIN ALFA (10,000 UNIT) 10,000 UNIT/ML VIAL SQ SCH (15:00)
[2017-12-17 16:00] VITALS: BP_SYST 114; BP_SYST 118; BP_DIAS 59; BP_DIAS 83
--- NOTE | 2017-12-17 16:30 | NUR ---
EXTRUDER OPERATOR HELPER NOTES PATIENT NOTED WITH BLOOD SUGAR OF 24MG/DL PATIENT ASYMPTOMATIC ALERT, ORIENTED X1 OPENS EYES NOTED TO QUESTIONS ASKED. D50 ADMINISTERED PER PROTOCOL WILL RECHECK IN 20 MIN.
[2017-12-17] MEDS: DEXTROSE 50%-WATER 50 ML DISP.SYRIN IV PRN (16:37)
--- NOTE | 2017-12-17 16:57 | NUR ---
COMPLEX HUMAN RESOURCES MANAGER NOTES BLOOD SUGAR RECHECKED 200MG/DL WILL CONTINUE TO MONITOR CLOSELY.
--- NOTE | 2017-12-17 18:18 | NUR ---
RT END OF THE SHIFT REPORT, PT. 52 Y OLD FEMALE REMAIN STABLE SINCE REC. 0700 AM. AWAKE, AND FOLLOWING COMMAND. SOY'D OPALKAITLIN # XLT 8 ON MECHANICAL VENT, WITH NOTED SETTINGS. EQUAL CHEST RISE NOTED, TRACH IN GOOD POSITION AND SECURE. HME CHANGED VARUN VENT WELL T/O DAY B/S RALES BILATERALLY AND SUX'D FOR SMALL AMT OF WHITE SECRETIONS. VENT PLUGGED INTO RED OUTLET, AMBU BAG AT THE BEDSIDE. CONTINUE FOR CARE AND MONITORING, REPORT WILL PASS TO PM SHIFT Addendum: 12/17/17 at 1820 by RUBY LOPEZ RT Amended: Links added.
--- NOTE | 2017-12-17 18:29 | NUR ---
SPECIAL EDUCATION RESOURCE ROOM TEACHER NOTES PATIENT IN BED RESTING NO SOB OR ACUTE DISTRESS NOTED. PATIENT ALERT, ORIENTED X1. ALL DUE MEDICATIONS ADMINISTERED. ALL NEEDS MET. WILL ENDORSE CARE TO OM SHIFT.
[2017-12-17 20:00] VITALS: BP 108/76
[2017-12-17] MEDS: SIMVASTATIN 10 MG TABLET PO SCH (21:35)
[2017-12-17] MEDS: ACETAMINOPHEN 325 MG TABLET PO PRN (23:54)
[2017-12-18] VITALS: BP 108/72
[2017-12-18 04:00] VITALS: BP 108/77
[2017-12-18] MEDS: HYDROMORPHONE INJ 0.5 MG/0.5 ML SYRINGE IV PRN (04:08)
[2017-12-18] MEDS: BLOOD SUGAR DIAGNOSTIC 1 EACH STRIP IN SCH ×3 (05:30→18:17)
[2017-12-18] MEDS: MEROPENEM 500 MG in IV NS 0.9% 50 ML IV SCH ×2 (05:30→18:17)
[2017-12-18] MEDS: INSULIN REGULAR, HUMAN 100 UNIT/ML 3 ML VIAL SQ PRN ×2 (05:31→19:02)
--- NOTE | 2017-12-18 06:50 | NUR ---
RN NOTES, PATIENT ON BED SLEEPING, ON VENT SETTINGS TOLERATED WELL, NO SOB/ACUTE DISTRESS NOTED AT THIS TIME, GTF INFUSING WELL AND PATIENT TOLERATED WELL, DAVID MIDLINE PATENT AND INTACT, ALL NEEDS PROVIDED, KEPT DRY AND CLEAN, REPOSITION PROVIDED PER PROTOCOL, SUCTION PROVIDED NEEDED FOR REMOVAL OF SECRETIONS, BED LOCKED AND LOWEST POSITION, CALL LIGHT W/UI REACH WILL ENDORSE CONTINUITY OF CARE TO ONCOMING NURSE.
--- NOTE | 2017-12-18 07:45 | NUR ---
FOURTH MATE NOTE: PATIENT IN BED, AWAKE AND OPEN HER EYES. NONVERBAL. NOT ON ANY FORM OF DISTRESS. VENT-TRACH DEPENDENT SATURATING 97%. HOB ELEVATED. GT FEEDING OF NOVASOURCE RENAL@30CC/HR TOLERATING WELL. (R) UA MIDLINE NOTED INTACT AND PATENT. ON HEMODIALYSIS SCHEDULE FOR TODAY. ON ICER MACHINE, SR HR= 84. BED ALARM AND LOCKED AT ALL TIMES. ON CONTACT ISOLATION FOR ESBL BLOOD AND MRSA NARES. NEEDS ANTICIPATED.
[2017-12-18 08:00] VITALS: BP 105/77
[2017-12-18] MEDS: SUCRALFATE 1 G TABLET PO SCH ×4 (08:12→21:22)
[2017-12-18] MEDS: LEVOTHYROXINE SODIUM 50 MCG TABLET PO SCH (08:12)
[2017-12-18] MEDS: RENAL NOVASOURCE 1,000 ML BOTTLE GT SCH (09:52)
[2017-12-18] MEDS: FLUOXETINE HCL 20 MG CAPSULE PO SCH (09:53)
[2017-12-18] MEDS: ASCORBIC ACID 500 MG TABLET PO SCH (09:53)
[2017-12-18] MEDS: MULTIVIT, IRON, MIN NO. 8, FA 1 TAB PO SCH (09:53)
[2017-12-18] MEDS: FLUCONAZOLE (100 MG) 100 MG TABLET PO SCH (09:55)
[2017-12-18] MEDS: FAMOTIDINE (20 MG) 20 MG TABLET PO SCH (09:55)
[2017-12-18] MEDS: HYDROGEL DRESSING 90 GM TUBE TP SCH (09:58)
[2017-12-18] MEDS: Z GUARD REMEDY 2 OZ OINT TP SCH (09:58)
[2017-12-18] MEDS: MUPIROCIN OINT 2% 22 GM TUBE SCH ×2 (09:58→21:00)
--- NOTE | 2017-12-18 10:00 | NUR ---
CONTROL TOWER OPERATOR NOTE: HEMODIALYSIS WAS DONE TODAY AND NO OUTPUT ONLY CLEANING PER DIALYSIS NURSE.
[2017-12-18 12:00] VITALS: BP 106/78
[2017-12-18 16:00] VITALS: BP 108/80
--- NOTE | 2017-12-18 19:30 | NUR ---
RN INITIAL NOTES RECEIVED PATIENT IN BED, AWAKE, ALERT AND ORIENTED X1. TRACH IS MIDLINE AND INTACT, RT AT BEDSIDE, PATIENT ON MECHANICAL VENTILATOR AT PRESCRIBED SETTINGS, TOLERATING WELL, FREE FROM ANY S/S OF RESPIRATORY DISTRESS. ON TELEMETRY MONITORING, REVEALING SINUS RHYTHM, HR 85 AT THIS TIME. GT PATENT AND INTACT, TUBE FEEDINGS AT PRESCRIBED RATE, FLUSHED WITH 30 ML WATER, NO GASTRIC RESIDUALS NOTED. DAVID MIDLINE PATENT AND INTACT, FLUSHED WITH NS, SITE FREE FROM ANY S/S OF INFILTRATION OR PHLEBITIS. CALL LIGHT LEFT WITHIN EASY REACH, BED IN LOWEST AND LOCKED POSITION. WILL CONTINUE TO CLOSELY MONITOR
--- NOTE | 2017-12-18 19:44 | NUR ---
SCHOOL COMMUNITY RELATIONS COORDINATOR NOTE: PATIENT IN BED, AWAKE AND OPEN HER EYES. NONVERBAL. NOT ON ANY FORM OF DISTRESS. VENT-TRACH DEPENDENT SATURATING 97%. HOB ELEVATED. GT FEEDING OF NOVASOURCE RENAL@30CC/HR TOLERATING WELL. (R) UA MIDLINE NOTED INTACT AND PATENT. AFEBRILE DURING THE SHIFT. ON SUPPLIER QUALITY, SR HR= 90. BED ALARM AND LOCKED AT ALL TIMES. ON CONTACT ISOLATION FOR ESBL BLOOD AND MRSA NARES. REPORT GIVEN TO PM SHIFT NURSE FOR CONTINUITY OF CARE.
[2017-12-18 20:00] VITALS: BP 105/74
[2017-12-18] MEDS: SIMVASTATIN 10 MG TABLET PO SCH (21:22)
[2017-12-19] VITALS (11 sets, daily range): BP systolic 105–116; BP diastolic 77–89
[2017-12-19] MEDS: BLOOD SUGAR DIAGNOSTIC 1 EACH STRIP IN SCH ×4 (02:06→17:12)
[2017-12-19] MEDS: INSULIN REGULAR, HUMAN 100 UNIT/ML 3 ML VIAL SQ PRN ×2 (02:08→06:08)
--- NOTE | 2017-12-19 04:08 | NUR ---
PT RECEIVED TRACHED ON THE VENT WITH NOTED SETTINGS. VENT ALARMS ARE SET AND AUDIBLE WITH AMBU BAG AT BEDSIDE. TRACH IS SECURED AND CROP GRAIN OR LIVESTOCK FARM MANAGER IS DONE. VENT IS PLUGGED INTO RED OUTLET. SX PRN. NO RESPIRATORY DISTRESS NOTED AT THIS TIME, WILL CONTINUE TO MONITOR.
[2017-12-19] MEDS: MEROPENEM 500 MG in IV NS 0.9% 50 ML IV SCH ×2 (06:02→17:14)
[2017-12-19 06:38] LABS: EOSINOPHILS % (AUTO) 0.2 % (0.0-6.0); HEMATOCRIT 33 % (33-45); LYMPHOCYTES # (AUTO) 0.3 /CMM (0.8-4.8); MEAN CORPUSCULAR HEMOGLOBIN 31 PG (26.0-33.0); MEAN CORPUSCULAR HGB CONC 34 g/dl (31.0-36.0); MEAN CORPUSCULAR VOLUME 90 fL (82-100); MONOCYTES # (AUTO) 0.1 /CMM (0.1-1.30); MONOCYTES % (AUTO) 0.4 % (2.0-12.0); NEUTROPHILS # (AUTO) 16.4 /CMM (1.8-8.9); NEUTROPHILS % (AUTO) 97.4 % (43.0-81.0); RDW COEFFICIENT OF VARIATION 17.3 (11.5-15.0); WHITE BLOOD COUNT (AUTO) 16.8 K/uL (4.3-11.0)
[2017-12-19 06:55] LABS: PLATELET COUNT (AUTO) 7 /CMM (150-450)
--- NOTE | 2017-12-19 07:00 | NUR ---
RN CLOSING NOTES PATIENT RESTING IN BED, APPEARS COMFORTABLE, NO ACUTE CHANGES THROUGHOUT SHIFT. WILL ENDORSE THE PATIENT TO THE AM SHIFT NURSE FOR ANA
[2017-12-19 07:34] LABS: BAND % (MANUAL) 2 % (0.0-5.0); LYMPHOCYTES % (MANUAL) 1 % (16-48); MONOCYTES % (MANUAL) 1 % (0-11.0); NEUTROPHILS % (MANUAL) 96 (42-76)
--- NOTE | 2017-12-19 07:36 | NUR ---
LIVESTOCK CARETAKER NOTE: RECEIVED PATIENT IN BED, ASLEEP, BUT AROUSABLE W/ TACTILE STIMULI. OPENED HER EYES. RECEIVED REPORT FROM PM SHIFT NURSE RE: THE PLATELET COUNT THIS AM. CALLED AND PAGED DR. BARNETT, ON-CALL MD TO REPORT THE PLATELET COUNT. AWAITING FOR MD'S CALL BACK. ON VENT-TRACH DEPENDENT SATURATING 98%. 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 HOB ELEVATED W/ GT FEEDING OF NOVASOURCE RENAL @30CC/HR AND TOLERATING WELL. (R) UA MIDLINE NOTED PATENT AND INTACT. (R) SUBCLAVIAN HD CATH NOTED W/ TRANSPARENT DRESSING CLEAN AND DRY. ON CONTACT ISOLATION FOR ESBL BLOOD AND MRSA NARES. BED ALARM AND LOCKED AT ALL TIMES. NEEDS ANTICIPATED.
--- NOTE | 2017-12-19 08:19 | NUR ---
HOT DOG VENDOR NOTE: RECEIVED A CALL BACK FROM DR. BARNETT AND ACCORDING TO HIM, HE WILL HAVE THE ASSIGNED DOCTOR TO GIVE ORDER FOR THE PATIENT'S CURRENT PLATELET LEVEL. WAS INFORMED THAT I ON 12/16/17 PATIENT HAD A TRANSFUSION OF 1 UNIT OF PLATELET. MD WAS ALSO AWARE THAT THERE IS NO ACTIVE BLEEDING AT THIS TIME NOTED W/ THE PATIENT. PATIENT NOT ON ANY FORM OF DISTRESS. WILL AWAIT FOR THE HOSPITALIST OF THE DAY. PATIENT ON CLOSE MONITORING.
[2017-12-19] MEDS: LEVOTHYROXINE SODIUM 50 MCG TABLET PO SCH (08:29)
[2017-12-19] MEDS: SUCRALFATE 1 G TABLET PO SCH ×4 (08:29→22:14)
[2017-12-19] MEDS: MULTIVIT, IRON, MIN NO. 8, FA 1 TAB PO SCH (08:31)
[2017-12-19] MEDS: FLUOXETINE HCL 20 MG CAPSULE PO SCH (08:31)
[2017-12-19] MEDS: FLUCONAZOLE (100 MG) 100 MG TABLET PO SCH (08:31)
[2017-12-19] MEDS: ASCORBIC ACID 500 MG TABLET PO SCH (08:31)
[2017-12-19] MEDS: FAMOTIDINE (20 MG) 20 MG TABLET PO SCH (08:31)
[2017-12-19] MEDS: MUPIROCIN OINT 2% 22 GM TUBE SCH ×2 (08:33→22:49)
[2017-12-19] MEDS: HYDROGEL DRESSING 90 GM TUBE TP SCH (08:33)
[2017-12-19] MEDS: Z GUARD REMEDY 2 OZ OINT TP SCH (08:33)
--- NOTE | 2017-12-19 10:38 | NUR ---
FELT HAT FLANGING OPERATOR NOTE: CALLED AND PAGED DR. KAMARA (COUNSELOR/ART THERAPIST/ONCOLOGIST) FOR THE PATIENT TO RELAY THE PLATELET COUNT TODAY. AWAITING FOR MD'S CALL BACK. PATIENT REMAINED ON STABLE CONDITION AND NO BLEEDING NOTED.
--- NOTE | 2017-12-19 11:16 | NUR ---
EDUCATION PROGRAM MANAGER NOTE: SPOKE W/ DR. PINK RE: THE PATIENT'S PLATELET COUNT FOR TODAY. PER , PLS. INFORM THE PHARMACY GRAD INTERN (DR. KAMARA) ABOUT IT. DR. PINK WAS AWARE THAT DR. KAMARA WAS ALREADY PAGED ABOUT THE PATIENT'S CRITICAL LAB FOR PLATELET. AWAITING FOR MD'S CALL BACK.
[2017-12-19] MEDS: RENAL NOVASOURCE 1,000 ML BOTTLE GT SCH (11:25)
[2017-12-19] MEDS: EPOETIN ALFA (10,000 UNIT) 10,000 UNIT/ML VIAL SQ SCH (15:00)
--- NOTE | 2017-12-19 15:23 | NUR ---
FISHING ROD MECHANIC NOTE: SPOKE W/ DAVIDA PARSONS AND MADE HER AWARE OF THE PATIENT'S PLATELET COUNT OF 7 TODAY. PER ISSA, TRY TO CALL DR. KAMARA AGAIN AND ASK IF SHE WILL ORDER SOMETHING FOR THE PATIENT. PATIENT'S HEMOGLOBIN LEVEL TODAY IS 11.0 AND PROCRIT WAS HELD DUE TO HOLD ORDER OF THE HGB LEVEL. DAVIDA PARSONS WAS AWARE.
--- NOTE | 2017-12-19 15:39 | NUR ---
LUMITE INJECTOR NOTE: CALLED AND SPOKE W/ DR. KAMARA AND SHE WAS INFORMED ABOUT THE PATIENT'S PLATELET LEVEL FOR TODAY. MD WAS AWARE THAT 1 UNIT OF PLATELET WAS TRANSFUSED LAST SUNDAY (12/16/17). W/ ORDER TO TRANSFUSE 1 UNIT OF PLATELET AND REPEAT CBC 1 HOUR AFTER THE PLATELET TRANSFUSION. SAID THAT SHE WANTED TO CALL THE FAMILY TO DISCUSS ABOUT HAVING A BONE MARROW BIOPSY FOR THE PATIENT.
[2017-12-19] MEDS: ACETAMINOPHEN 325 MG TABLET PO PRN (16:14)
--- NOTE | 2017-12-19 19:45 | NUR ---
USED CAR SALESPERSON NOTE: PATIENT IN BED, ASLEEP, OPEN HER EYES WHEN CALLED OR W/ TACTILE STIMULI. HOB ELEVATED. ON GT FEEDING OF NOVASOURCE RENAL @ 30CC/HR TOLERATING WELL. NOTED W/ 1 BM DURING THE SHIFT. AFEBRILE. ON PROCESS DEVELOPMENT MANAGER, SR HR= 88. (R) UA MIDLINE PATENT AND INTACT. BED ALARM AND LOCKED AT ALL TIMES. CALL LIGHT WITHIN REACH. STILL AWAITING FOR THE PLATELET TRANSFUSION FROM BLOOD BANK. REPORT GIVEN TO PM SHIFT NURSE FOR CONTINUITY OF CARE.
--- NOTE | 2017-12-19 19:54 | NUR ---
PT RECEIVED TRACHED ON VENT WITH NOTED SETTINGS. VENT ALARMS ARE WORKING AND AUDIBLE , AMBU BAG AT BEDSIDE. TRACH IS SECURED AND GROUND CREW SUPERVISOR DONE. VENT IS PLUGGED INTO RED OUTLET. SUCTIONED MODERATE YELLOW THICK SECRETIONS WITH TINGED BLOOD. NO RESPIRATORY DISTRESS NOTED AT THIS TIME, WILL CONTINUE TO MONITOR THE PT.
[2017-12-19] MEDS: SIMVASTATIN 10 MG TABLET PO SCH (22:14)
[2017-12-20] VITALS: BP 114/73
[2017-12-20] MEDS: BLOOD SUGAR DIAGNOSTIC 1 EACH STRIP IN SCH ×5 (00:35→23:40)
[2017-12-20] MEDS: INSULIN REGULAR, HUMAN 100 UNIT/ML 3 ML VIAL SQ PRN ×2 (00:36→05:43)
[2017-12-20 00:46] LABS: EOSINOPHILS # (AUTO) 0.1 /CMM (0.0-0.7); EOSINOPHILS % (AUTO) 0.5 % (0.0-6.0); HEMATOCRIT 30 % (33-45); HEMOGLOBIN 10.2 g/dL (11.5-14.8); LYMPHOCYTES # (AUTO) 0.2 /CMM (0.8-4.8); LYMPHOCYTES % (AUTO) 2.2 % (20.0-44.0); MEAN CORPUSCULAR HEMOGLOBIN 30 PG (26.0-33.0); MEAN CORPUSCULAR HGB CONC 34 g/dl (31.0-36.0); MEAN CORPUSCULAR VOLUME 89 fL (82-100); MONOCYTES % (AUTO) 0.3 % (2.0-12.0); NEUTROPHILS # (AUTO) 10.3 /CMM (1.8-8.9); PLATELET COUNT (AUTO) 90 /CMM (150-450); RDW COEFFICIENT OF VARIATION 17.3 (11.5-15.0); RED BLOOD CELL COUNT(AUTO) 3.38 MIL/uL (4.0-5.2); WHITE BLOOD COUNT (AUTO) 10.6 K/uL (4.3-11.0)
[2017-12-20 01:32] LABS: BAND % (MANUAL) 10 % (0.0-5.0); LYMPHOCYTES % (MANUAL) 3 % (16-48); MONOCYTES % (MANUAL) 1 % (0-11.0); NEUTROPHILS % (MANUAL) 86 (42-76)
[2017-12-20 04:00] VITALS: BP 110/91
[2017-12-20] MEDS: MEROPENEM 500 MG in IV NS 0.9% 50 ML IV SCH ×2 (05:36→17:00)
--- NOTE | 2017-12-20 07:37 | NUR ---
RN NOTES RECEIVED PT FROM DIESEL MECHANIC HELPER, VENT/TRACH DEPENDENT, A&0X1, RESPONDS NAME. TOLERATING GTF, NOVASOURCE AT 30ML/HR. SR ON THE TELE DAYANNA HR 93. DAVID MIDLINE INTACT NO IVF. BED LOCKED AND IN LOWEST POSITION, CALL LIGHT WITHIN REACH, SIDE RAILS UPX3, WILL CONT TO DAYANNA.
[2017-12-20 08:00] VITALS: BP 131/87
[2017-12-20] MEDS: LEVOTHYROXINE SODIUM 50 MCG TABLET PO SCH (08:31)
[2017-12-20] MEDS: ASCORBIC ACID 500 MG TABLET PO SCH (08:31)
[2017-12-20] MEDS: FLUOXETINE HCL 20 MG CAPSULE PO SCH (08:31)
[2017-12-20] MEDS: SUCRALFATE 1 G TABLET PO SCH ×4 (08:31→21:34)
[2017-12-20] MEDS: MULTIVIT, IRON, MIN NO. 8, FA 1 TAB PO SCH (08:31)
[2017-12-20] MEDS: FAMOTIDINE (20 MG) 20 MG TABLET PO SCH (08:31)
[2017-12-20] MEDS: FLUCONAZOLE (100 MG) 100 MG TABLET PO SCH (08:32)
[2017-12-20] MEDS: Z GUARD REMEDY 2 OZ OINT TP SCH (08:32)
[2017-12-20] MEDS: HYDROGEL DRESSING 90 GM TUBE TP SCH (08:32)
[2017-12-20] MEDS: MUPIROCIN OINT 2% 22 GM TUBE SCH ×2 (08:32→21:34)
[2017-12-20 12:00] VITALS: BP 125/52
[2017-12-20 16:00] VITALS: BP 138/91
--- NOTE | 2017-12-20 16:48 | NUR ---
RT NOTE TRACH'D SHIKAITLIN # XLT 8 ON MECHANICAL VENT, WITH NOTED SETTINGS. EQUAL CHEST RISE NOTED, TRACH IN GOOD POSITION AND SECURE. HME CHANGED VARUN VENT WELL T/O DAY B/S RALES BILATERALLY AND SUX'D FOR SMALL AMT OF WHITE SECRETIONS. VENT PLUGGED INTO RED OUTLET, AMBU BAG AT THE BEDSIDE.
--- NOTE | 2017-12-20 19:30 | NUR ---
PLASTIC MANAGER INITIAL NOTE PT RECEIVED AWAKE IN BED. A/O X1-2 AND ABLE TO FOLLOW COMMAND. ON MECH VENT WITH SETTINGS WELL TOLERATED AT THIS TIME. TELE-SINUS RHYTHM 90. IV DAVID MIDLINE CLEAN, DRY AND PATENT. R SUBCLAVIAN HD CATH CLEAN AND DRY. GTUBE FEEDING WELL TOLERATED AND NO RESIDUALS NOTED. HOB ELEVATED AND ON ASPIRATION PRECAUTIONS. ISOLATION PRECAUTIONS OBSERVED. WILL CONTINUE TO MONITOR.
[2017-12-20 20:00] VITALS: BP 138/87
[2017-12-20] MEDS: SIMVASTATIN 10 MG TABLET PO SCH (21:34)
[2017-12-21] VITALS: BP_SYST 119; BP_SYST 132; BP_DIAS 61; BP_DIAS 74
[2017-12-21 04:00] VITALS: BP 116/82
[2017-12-21] MEDS: BLOOD SUGAR DIAGNOSTIC 1 EACH STRIP IN SCH ×3 (05:16→18:36)
[2017-12-21] MEDS: MEROPENEM 500 MG in IV NS 0.9% 50 ML IV SCH (05:16)
[2017-12-21] MEDS: INSULIN REGULAR, HUMAN 100 UNIT/ML 3 ML VIAL SQ PRN (05:20)
[2017-12-21] MEDS: RENAL NOVASOURCE 1,000 ML BOTTLE GT SCH (05:21)
--- NOTE | 2017-12-21 07:19 | NUR ---
SSRS REPORT DEVELOPER CLOSING NOTE PT REMAINED STABLE DURING SHIFT. NO ACUTE DISTRESS NOTED. HOB ELEVATED. VENT SETTINGS WELL TOLERATED. ISOLATION PRECAUTIONS OBSERVED. KEPT CLEAN AND DRY. SUCTIONED NEEDED. REPOSITIONED Q2H. ALL NEEDS ATTENDED TO PROMPTLY. WILL ENDORSE TO NEXT SHIFT FOR CONTINUITY OF CARE.
--- NOTE | 2017-12-21 07:40 | NUR ---
PLANT PATHOLOGY TEACHER NOTES RECEIVED PT ON BED AWAKE. ALERT ORIENTED X1. ON [facility] VENT SETTING SATURATING WELL. HEAD OF BED ELEVATED. SIDE RAILS UP. CALL LIGHT WITHIN REACH. ON TELE MONITOR SR. WILL CONTINUE TO MONITOR PT CLOSELY.
[2017-12-21 08:00] VITALS: BP 108/73
[2017-12-21] MEDS: SUCRALFATE 1 G TABLET PO SCH ×3 (08:04→18:34)
[2017-12-21] MEDS: MULTIVIT, IRON, MIN NO. 8, FA 1 TAB PO SCH (08:04)
[2017-12-21] MEDS: FAMOTIDINE (20 MG) 20 MG TABLET PO SCH (08:04)
[2017-12-21] MEDS: ASCORBIC ACID 500 MG TABLET PO SCH (08:04)
[2017-12-21] MEDS: FLUOXETINE HCL 20 MG CAPSULE PO SCH (08:05)
[2017-12-21] MEDS: LEVOTHYROXINE SODIUM 50 MCG TABLET PO SCH (08:05)
[2017-12-21] MEDS: Z GUARD REMEDY 2 OZ OINT TP SCH (08:05)
[2017-12-21] MEDS: HYDROGEL DRESSING 90 GM TUBE TP SCH (08:05)
[2017-12-21] MEDS: MUPIROCIN OINT 2% 22 GM TUBE SCH ×2 (08:06→21:20)
[2017-12-21 12:00] VITALS: BP 113/78
[2017-12-21] MEDS: EPOETIN ALFA (10,000 UNIT) 10,000 UNIT/ML VIAL SQ SCH (15:00)
--- NOTE | 2017-12-21 15:07 | NUR ---
BLUE PRINTS TRIMMER NOTES CALLED PHARMACY REGARDING EPOGEN.NO NEW CBC BEC PT IS DISCHARGE.
[2017-12-21 16:00] VITALS: BP 107/74
--- NOTE | 2017-12-21 18:37 | NUR ---
BOBBIN WINDER NOTES PT BLOOD SUGAR WENT TO 22MG/DL, GIVEN 50%DEXTROSE PER PROTOCOL. REPEAT BLOOD SUGAR DONE AFTER 5MINS. BLOOD SUGAR 188MG/DL. AFTER 15MINS BLOOD SUGAR 169MG/DL. AFTER 45 MINS BLOOD SUGAR 150MG/DL CHARGE NURSE MADE AWARE. VITAL SIGNS BP 126/88 HR 90 SATURATING 97%. AND PT SATURATING WELL.
--- NOTE | 2017-12-21 19:00 | NUR ---
YOUTH DEVELOPMENT PROFESSIONAL NOTE ENDORSE TO THE LEAD RECOVERER IN [facility]. EXIT CARE DONE.
--- NOTE | 2017-12-21 19:31 | NUR ---
rn notes received patient awake in bed with no respiratory distress or shortnes of breath Breathing even and unlabored. Vent setting well tolerated. Alert and responsive with confusion. No physical manifestation of pain or discomfort. GTube in place and intact. Feeding well tolerated. HOB elevated. Vital signs WBL. Kept clean and dry. Will continue to monitor.
--- NOTE | 2017-12-21 19:51 | NUR ---
FAMILY CONSUMER SCIENCE TEACHER NOTES NO ACUTE CHANGES NOTED DURING THE SHIFT. HEAD OF BED ELEVATED. SIDE RAILS UP. CALL LIGHT PETER DAVIDSON. WILL ENDORSE TO THE PM NURSE FOR ANA.
--- NOTE | 2017-12-21 19:57 | NUR ---
Received pt on vent support , pt stable on current settings no sob or distress noted, alarms are on and audible, ventilator is plugged into red outlet, ambu bag at bedside. Addendum: 12/21/17 at 1957 by MOLLY GRAHAM RT Amended: Links added.
[2017-12-21 20:00] VITALS: BP 117/72
[2017-12-21] MEDS: HYDROMORPHONE INJ 0.5 MG/0.5 ML SYRINGE IV PRN (21:09)
--- NOTE | 2017-12-21 21:31 | NUR ---
rn notes received patient in bed with no respiratory distress or shortness of breath. breathing even and unlabored. no physical manifestation of pain or discomfort. gtube in place. feeding well tolerated. HOB elevated. vital signs wnl. alert and responsive. picked-up by ambulance at 2100 in stable condition for discharge to [facility].
== END 2017-12-21 21:30 | DRG 710 ==
LOC: ER 15:24 → TELE 21:41 → MED 12-06 10:30 → TELE 12-06 20:22 → TELE-TD 12-10 14:36 → TELE1 12-12 10:07
PROVIDERS: ADMIT Internal Medicine; ATTEND Internal Medicine
PROC: 5A1955Z Respiratory Ventilation, Greater than 96 Consecutive Hours (ICD-10-PCS; 2017-12-03)
PROC: 30233R1 Transfusion of Nonautologous Platelets into Peripheral Vein, Percutaneous Approach (ICD-10-PCS; 2017-12-04)
PROC: 5A1D70Z Performance of Urinary Filtration, Intermittent, Less than 6 Hours Per Day (ICD-10-PCS; 2017-12-04)
PROC: 30233N1 Transfusion of Nonautologous Red Blood Cells into Peripheral Vein, Percutaneous Approach (ICD-10-PCS; 2017-12-05)
PROC: 5A1D70Z Performance of Urinary Filtration, Intermittent, Less than 6 Hours Per Day (ICD-10-PCS; principal; 2017-12-06)
PROC: 0KBP0ZZ Excision of Left Hip Muscle, Open Approach (ICD-10-PCS; principal; 2017-12-06)
PROC: 0KBN0ZZ Excision of Right Hip Muscle, Open Approach (ICD-10-PCS; principal; 2017-12-06)
PROC: 05H533Z Insertion of Infusion Device into Right Subclavian Vein, Percutaneous Approach (ICD-10-PCS; 2017-12-07)
PROC: 0DH63UZ Insertion of Feeding Device into Stomach, Percutaneous Approach (ICD-10-PCS; 2017-12-08)
PROC: 5A1D70Z Performance of Urinary Filtration, Intermittent, Less than 6 Hours Per Day (ICD-10-PCS; 2017-12-09)
PROC: 5A1D70Z Performance of Urinary Filtration, Intermittent, Less than 6 Hours Per Day (ICD-10-PCS; 2017-12-10)
PROC: 5A1D70Z Performance of Urinary Filtration, Intermittent, Less than 6 Hours Per Day (ICD-10-PCS; 2017-12-12)
PROC: 0B21XFZ Change Tracheostomy Device in Trachea, External Approach (ICD-10-PCS; 2017-12-12)
PROC: 5A1D70Z Performance of Urinary Filtration, Intermittent, Less than 6 Hours Per Day (ICD-10-PCS; 2017-12-14)
PROC: 5A1D70Z Performance of Urinary Filtration, Intermittent, Less than 6 Hours Per Day (ICD-10-PCS; 2017-12-16)
PROC: 5A1D70Z Performance of Urinary Filtration, Intermittent, Less than 6 Hours Per Day (ICD-10-PCS; 2017-12-18)
PROC: 5A1D70Z Performance of Urinary Filtration, Intermittent, Less than 6 Hours Per Day (ICD-10-PCS; 2017-12-20)
DX: A41.9 Sepsis, unspecified organism (principal); J96.21 Acute and chronic respiratory failure with hypoxia; Z99.11 Dependence on respirator [ventilator] status; J90 Pleural effusion, not elsewhere classified; J18.9 Pneumonia, unspecified organism; I13.2 Hypertensive heart and chronic kidney disease with heart failure and with stage 5 chronic kidney disease, or end stage renal disease; L89.154 Pressure ulcer of sacral region, stage 4; D61.818 Other pancytopenia; E87.2 Acidosis; Z93.0 Tracheostomy status; K94.23 Gastrostomy malfunction; D68.9 Coagulation defect, unspecified; N18.6 End stage renal disease; E11.22 Type 2 diabetes mellitus with diabetic chronic kidney disease; D69.6 Thrombocytopenia, unspecified; Y83.3 Surgical operation with formation of external stoma as the cause of abnormal reaction of the patient, or of later complication, without mention of misadventure at the time of the procedure; Y92.129 Unspecified place in nursing home as the place of occurrence of the external cause; E03.9 Hypothyroidism, unspecified; E44.1 Mild protein-calorie malnutrition; E78.5 Hyperlipidemia, unspecified; E87.6 Hypokalemia; K21.9 Gastro-esophageal reflux disease without esophagitis; N28.1 Cyst of kidney, acquired; R13.10 Dysphagia, unspecified; Z99.2 Dependence on renal dialysis; Z87.01 Personal history of pneumonia (recurrent); Z87.11 Personal history of peptic ulcer disease; E11.649 Type 2 diabetes mellitus with hypoglycemia without coma; R74.0 Nonspecific elevation of levels of transaminase and lactic acid dehydrogenase [LDH]; E80.6 Other disorders of bilirubin metabolism; S41.112A Laceration without foreign body of left upper arm, initial encounter; S41.111A Laceration without foreign body of right upper arm, initial encounter; X58.XXXA Exposure to other specified factors, initial encounter; Y93.9 Activity, unspecified; E83.9 Disorder of mineral metabolism, unspecified; K92.2 Gastrointestinal hemorrhage, unspecified; D72.825 Bandemia; L98.8 Other specified disorders of the skin and subcutaneous tissue; S50.12XA Contusion of left forearm, initial encounter; S50.11XA Contusion of right forearm, initial encounter; E83.51 Hypocalcemia; Z22.322 Carrier or suspected carrier of Methicillin resistant Staphylococcus aureus; K76.0 Fatty (change of) liver, not elsewhere classified; B96.20 Unspecified Escherichia coli [E. coli] as the cause of diseases classified elsewhere; J93.82 Other air leak; K57.90 Diverticulosis of intestine, part unspecified, without perforation or abscess without bleeding; N39.0 Urinary tract infection, site not specified; R47.02 Dysphasia; B37.49 Other urogenital candidiasis; B96.89 Other specified bacterial agents as the cause of diseases classified elsewhere; K64.8 Other hemorrhoids; Y84.8 Other medical procedures as the cause of abnormal reaction of the patient, or of later complication, without mention of misadventure at the time of the procedure; Y73.8 Miscellaneous gastroenterology and urology devices associated with adverse incidents, not elsewhere classified
CPT/HCPCS: 31720; 36415; 36569; 36600; 43246; 71045-TC; 74018; 80048-TC; 80053-TC; 80076-TC; 80150; 80202-TC; 82272-TC; 82962-TC; 83690-TC; 83735-TC; 84100-TC; 84443-TC; 85025-TC; 85027-TC; 85385-TC; 85730-TC; 86850-TC; 86921-TC; 87040-TC; 87081-TC; 87086-TC; 87186-TC; 90935-TC; 94002; 94003-TC; 94760-TC; 94762-TC; A4216; A4606; A6248; A6253; A6402; A6403; A7526; A9563; C1751; C9113; J0278; J0885; J1442; J1610; J1815; J2185; J2248; J2370; J2543; J2704; J3370; J3480; J3490; J7030; J7050; J7060; P9016-BL; P9034-BL; P9047; Q9963; Z7610